=== PATIENT | female | born 1955 | race Caucasian/White ===

== ENCOUNTER → 2016-08-28 | Outpatient (CLI) | payer OTHER ==
[~2016-08-28] MED LIST: ALBINS/ INH; ALBU0.5N2 NEB; ALBUAER2 INH; CHOL100010 PO; CHOL1TAB2 PO; CYAN100020 PO; CYAN500T13 PO; CYM/30 PO; DULO-24 PO; FENT25DI10 TOP; FLUT1INH5 INH; FOLI1TAB7 PO; FURO-85 PO; GABA-113 PO; IBAN150T PO; KETO2CRE14 TOP; LEFL20TA PO; LVQ750 PO; METH2.5T PO; NZRCR TOP; ORNI125; OXGN; OXYC-57 PO; OXYC-643 PO; OXYSR10 PO; PRED-301 PO; PREG1CAP28 PO; ROPI0.25 PO; RXC5 PO; SPRIN INH; TRMCR515 TOP; UMEC1AER INH; VNTHFA/IN INH
[2016-08-28 13:53] LABS: CHOLESTEROL/HDL RATIO 3.6
== END | disposition home or self-care (01) ==
LOC: C.LABMFLN 08:09
PROVIDERS: ATTEND Family Medicine
DX: Z13.220 Encounter for screening for lipoid disorders (principal); M06.9 Rheumatoid arthritis, unspecified; G25.81 Restless legs syndrome; Z87.898 Personal history of other specified conditions; M81.0 Age-related osteoporosis without current pathological fracture

== ENCOUNTER 2016-10-30 10:39 | Inpatient (IN) | payer OTHER ==
[~2016-10-30] VITALS: Ht 154.9 cm; Wt 81.3 kg
[~2016-10-30 10:39] MED LIST changes: -ALBINS/ INH; -CHOL1TAB2 PO; -CYAN500T13 PO; -DULO-24 PO; -FENT25DI10 TOP; -FLUT1INH5 INH; -FURO-85 PO; -IBAN150T PO; -LVQ750 PO; -NZRCR TOP; -OXGN; -OXYC-57 PO; -OXYSR10 PO; -PREG1CAP28 PO; -SPRIN INH; -TRMCR515 TOP; -VNTHFA/IN INH
--- NOTE | 2016-10-30 11:37 | DIAGNOSTIC IMAGING REPORT ---
CHEST ONE VIEW PORTABLE CLINICAL HISTORY: SOB dyspnea COMPARISON STUDY: 11/23/2014 FINDINGS: Moderate cardiomegaly. Diaphragms smooth. Pulmonary vascular congestion. Potential developing parenchymal infiltrate medial right base. IMPRESSION: 1. Pulmonary venous congestion. 2. Potential developing parenchymal infiltrate medial right base. Electronically signed by: Kurt Rodney M.D. 10/30/2016 11:36 AM Dictated Date/Time: 10/30/2016 11:35 AM
[2016-10-30] MEDS ORDERED: METHYLPREDNISOLONE 125 MG VIAL IV STA (12:06)
[2016-10-30] MEDS ORDERED: ALBUT/IPRATROP 3MG/0.5MG NEB 3 ML VIAL INH ONE (12:15)
--- NOTE | 2016-10-30 12:15 | EMERGENCY ROOM VISIT NOTE ---
History Report prepared by Howard: Shay Rodriguez Under the Supervision of: Dr. Que Root M.D. First contact with patient: 12:01 Chief Complaint: SHORTNESS OF BREATH Stated Complaint: SOB Nursing Triage Summary: having sob for the past 3 weeks. denies hx of breathing difficulties. was to [facility]. d dimer was elevated ct scan and chest xray was negative History of Present Illness The patient is a 61 year old female who presents to the Emergency Room with complaints of shortness of breath. Severely worse with exertion over any more than a few feet. Feeling short of breath over the last month. Initially seen [place] where she reports extensive testing including CT PE without any acute findings. She notes she was started on steroids by PCP and is tapering them off. Over last few days acutely worsening. Mildly productive cough. Mild upper sternal chest pain with exertion, though none now. No fevers, chills, syncope, nausea, vomiting, headache, neck pain, abdominal pain, weakness. Notes periodic swelling legs. No history of PE/DVT. No CAD history. Admits long COPD history. Using inhaler without improvement. No previous admission for this. Does not h.o periodic pna, bronchitis. Source of History: patient Onset: Past few days Position: other (global - shortness of breath) Timing: worsening Modifying Factors (Worsening): exertion Associated Symptoms: + chest pain, + cough, No LOC, No chills, No fevers, No headache, No nausea, No neck pain, No vomiting, No weakness Note: Associated symptoms: Leg swelling. Review of Systems See HPI for pertinent positives & negatives. A total of 10 systems reviewed and were otherwise negative. Past Medical & Surgical Medical Problems: (1) COPD (chronic obstructive pulmonary disease) (2) Short of breath on exertion Family History No pertinent family history Social History Smoking Status: Never Smoker Marital Status: Housing Status: lives with family Occupation Status: unemployed Current/Historical Medications Scheduled Abatacept (Orencia), 1 DOSE SUNDAY Cholecalciferol (Vitamin D-3), 1,000 UNITS PO DAILY Cyanocobalamin (Vitamin B12), 2,500 MCG PO QAM Duloxetine Hcl (Cymbalta), 40 MG PO DAILY Folic Acid (Folvite), 1 MG PO QAM Gabapentin (Neurontin), 600 MG PO HS Gabapentin (Neurontin), 300 MG PO AM & DINNER Ibandronate Sodium (Boniva), 150 MG PO MONTHLY Leflunomide (Arava), 20 MG PO QAM Methotrexate (Methotrexate), 10 TAB PO SUNDAY Prednisone (Prednisone), 5 MG PO QAM Ropinirole (Requip), 2 TABS PO HS Umeclidinium-Vilanterol (Anoro Ellipta 62.5-25 Mcg/INH), 1 PUFF INH QAM Scheduled PRN Albuterol Hfa (Ventolin Hfa), 2 PUFFS INH Q4 PRN for SOB/Wheezing Albuterol Sulf (Proventil 0.083% 2.5MG/3ML), 2.5 MG INH Q4 PRN for SOB/Wheezing Ketoconazole (Ketoconazole), 1 APPLN TOP TID PRN for RASH Allergies Coded Allergies: Piroxicam (Verified Allergy, Unknown, SWELLING AND INCREASED REFLUX, ) Simvastatin (Verified Allergy, Unknown, JOINT AND MUSCLE PAIN, 10/30/16) Etodolac (Verified Adverse Reaction, Unknown, 'made pain worse' per pt, ) Physical Exam Vital Signs Date Time Temp Pulse Resp B/P Pulse Ox O2 Delivery O2 Flow Rate FiO2 10/30/16 16:00 110 22 126/70 94 10/30/16 14:23 107 16 117/52 93 Room Air 10/30/16 13:49 105 16 117/66 95 Room Air 10/30/16 13:15 93 Nasal Cannula 2.0 10/30/16 12:40 92 88 Room Air 10/30/16 12:31 101 16 93 Room Air 10/30/16 12:13 77 18 118/69 96 Nasal Cannula 2.0 10/30/16 12:09 84 10/30/16 11:42 97 Nasal Cannula 2.0 10/30/16 10:57 91 Room Air 10/30/16 10:55 37.4 102 18 121/72 91 Room Air Physical Exam GENERAL: Patient is well appearing and in mild distress. HEENT: No acute trauma, normocephalic atraumatic, mucous membranes moist, no nasal congestion, no scleral icterus. NECK: No stridor, no adenopathy, no meningismus, trachea is midline. LUNGS: Crackles right lung joshi, mild diffuse wheezing, mild dyspnea. HEART: Regular rate and rhythm. No murmurs, rubs, gallops appreciated. ABDOMEN: Soft, nontender, bowel sounds positive, no masses appreciated, no peritonitis. BACK: No midline tenderness, no CVA tenderness EXTREMITIES: Normal motion all extremities, no cyanosis, no edema. NEUROLOGIC: Alert and oriented, no acute motor or sensory deficits, no focal weakness, cranial nerves grossly intact. SKIN: No rash, no jaundice, no diaphoresis. Medical Decision & Procedures ER Provider Diagnostic Interpretation: X ray results are stated below per my interpretation and the radiologist's interpretation. CHEST ONE VIEW PORTABLE CLINICAL HISTORY: SOB dyspnea COMPARISON STUDY: 11/23/2014 FINDINGS: Moderate cardiomegaly. Diaphragms smooth. Pulmonary vascular congestion. Potential developing parenchymal infiltrate medial right base. IMPRESSION: 1. Pulmonary venous congestion. 2. Potential developing parenchymal infiltrate medial right base. Electronically signed by: Kurt Rodney M.D. 10/30/2016 11:36 AM Dictated Date/Time: 10/30/2016 11:35 AM Laboratory Results 10/30/16 11:15 Red Blood Count 4.42, Mean Corpuscular Volume 92.5, Mean Corpuscular Hemoglobin 30.8, Mean Corpuscular Hemoglobin Concent 33.3, Mean Platelet Volume 11.0, Neutrophils (%) (Auto) 78.7, Lymphocytes (%) (Auto) 12.0, Monocytes (%) (Auto) 4.4, Eosinophils (%) (Auto) 1.0, Basophils (%) (Auto) 0.3, Neutrophils # (Auto) 8.14, Lymphocytes # (Auto) 1.24, Monocytes # (Auto) 0.45, Eosinophils # (Auto) 0.10, Basophils # (Auto) 0.03 10/30/16 11:15 Test 10/30/16 00:00 10/30/16 11:15 10/30/16 12:35 Influenza Type A Antigen Neg for Influ A (NEG) Influenza Type B Antigen Neg for Influ B (NEG) White Blood Count 10.33 K/uL (4.8-10.8) Red Blood Count 4.42 M/uL (4.2-5.4) Hemoglobin 13.6 g/dL (12.0-16.0) Hematocrit 40.9 % (37-47) Mean Corpuscular Volume 92.5 fL (80-100) Mean Corpuscular Hemoglobin 30.8 pg (25-34) Mean Corpuscular Hemoglobin Concent 33.3 g/dl (32-36) Platelet Count 367 K/uL (130-400) Mean Platelet Volume 11.0 fL (7.4-10.4) Neutrophils (%) (Auto) 78.7 % Lymphocytes (%) (Auto) 12.0 % Monocytes (%) (Auto) 4.4 % Eosinophils (%) (Auto) 1.0 % Basophils (%) (Auto) 0.3 % Neutrophils # (Auto) 8.14 K/uL (1.4-6.5) Lymphocytes # (Auto) 1.24 K/uL (1.2-3.4) Monocytes # (Auto) 0.45 K/uL (0.11-0.59) Eosinophils # (Auto) 0.10 K/uL (0-0.5) Basophils # (Auto) 0.03 K/uL (0-0.2) RDW Standard Deviation 55.9 fL (36.4-46.3) RDW Coefficient of Variation 16.6 % (11.5-14.5) Immature Granulocyte % (Auto) 3.6 % Immature Granulocyte # (Auto) 0.37 K/uL (0.00-0.02) Large Platelets 1+ Anisocytosis PRESENT Prothrombin Time 11.0 SECONDS (9.0-12.0) Prothromb Time International Ratio 1.0 (0.9-1.1) Activated Partial Thromboplast Time 27.3 SECONDS (21.0-31.0) Partial Thromboplastin Ratio 1.1 Anion Gap 8.0 mmol/L (3-11) Est Creatinine Clear Calc Drug Dose 65.4 ml/min Estimated GFR () 84.5 Estimated GFR (Non- 72.9 BUN/Creatinine Ratio 15.2 (10-20) Calcium Level 8.9 mg/dl (8.5-10.1) Magnesium Level 2.3 mg/dl (1.8-2.4) Troponin I < 0.015 ng/ml (0-0.045) Pro-B-Type Natriuretic Peptide 414 pg/ml (0-900) Bedside Lactic Acid Venous 1.78 mmol/L (0.90-1.70) Laboratory results as reviewed by me. Medications Administered Medications (Trade) Dose Ordered Sig/Alf Route Start Time Stop Time Status Last Admin Dose Admin Methylprednisolone Sodium Succinate (Solu-Medrol IV) 125 mg NOW STAT IV 10/30/16 12:06 10/30/16 12:08 DC 10/30/16 12:21 125 MG Albuterol/ Ipratropium (Duoneb) 12 ml ONE ONCE INH 10/30/16 12:15 10/30/16 12:16 DC 10/30/16 12:30 12 ML Levofloxacin 750 mg 750 mg NOW STAT IV 10/30/16 12:55 10/30/16 12:56 DC 10/30/16 13:45 750 MG Sodium Chloride (Nss 500ml) 500 ml @ 999 mls/hr Q31M STAT IV 10/30/16 12:56 10/30/16 13:26 DC 10/30/16 13:46 999 MLS/HR ECG Indication: SOB/dyspnea Rate (beats per minute): 77 Rhythm: normal sinus Findings: no acute ischemic change, no ectopy, other (QTC of 420) ED Course 1200: The patient was evaluated in room B5. A complete history and physical exam was performed. 1206: Ordered Solu-Medrol IV 125 mg IV. 1215: Ordered Duoneb 12 ml INH. 1255: Ordered Levaquin / D5W 750 mg IV. 1256: Ordered NSS 500 ml @ 999 mls/hr IV. 1305: Upon reevaluation, the patient is resting comfortably. Discussed results and treatment plan with the patient. She verbalized understanding and agreement with the treatment plan. The patient will be evaluated for further management. 1313: I discussed the patient with Dr. Butt [place] [facility] [place] he will evaluate the patient for further treatment. 1340: I reevaluated the patient, and she is stable. She is currently being evaluated by medicine. Medical Decision 61 yr old female arrives for evaluation of shortness of breath 1 month post seeing [place] ED for similar symptoms. Notes over last few days symptoms have worsened. Notes some nodules in throat which are being followed. Notes severe [place] and was as upper chest pressure on exertion. CXR and exam consistent with right middle pna. Labs look OK. Unfortunately desaturated thus will need to come in. Already with recent CT PE study thus will not repeat. Feeling much better on NC O2 and resting. IV abx, steroids, and will bring in given hypoxia. Doing well throughout ED stay. Consults Time Called: 1307 Consulting Physician: Dr. Daquan NGUYEN hospitalist Returned Call: 1313 I discussed the patient with Dr. Daquan NGUYEN hospitalist- he will evaluate the patient for further treatment. Impression Primary Impression: PNA (pneumonia) Additional Impression: Hypoxia Scribe Attestation The scribe's documentation has been prepared under my direction and personally reviewed by me in its entirety. I confirm that the note above accurately reflects all work, treatment, procedures, and medical decision making performed by me. Departure Information Dispostion Being Evaluated By Hospitalist Referrals Joe Santos M.D. (PCP) Patient Instructions My [facility] Problem Qualifiers Primary Impression: PNA (pneumonia) Pneumonia type: due to unspecified organism Laterality: right Lung location : middle lobe of lung Qualified Codes: J18.1 - Lobar pneumonia, unspecified organism
[2016-10-30 12:23] LABS: HEMATOCRIT 40.9 % (37-47); MEAN CELL VOLUME 92.5 fL (80-100); MEAN CORPUSCULAR HEMOGLOBIN 30.8 pg (25-34); MEAN CORPUSCULAR HGB CONC 33.3 g/dl (32-36); PLATELET COUNT 367 K/uL (130-400); RED BLOOD COUNT 4.42 M/uL (4.2-5.4); WHITE BLOOD COUNT 10.33 K/uL (4.8-10.8)
[2016-10-30 12:31] VITALS: PULSE 101; O2SAT 93
[2016-10-30 12:33] LABS: BLOOD UREA NITROGEN 13 mg/dl (7-18); BUN/CREATININE RATIO 15.2 (10-20); CALCIUM 8.9 mg/dl (8.5-10.1); CARBON DIOXIDE 25 mmol/L (21-32); CHLORIDE 101 mmol/L (98-107); CREATININE 0.85 mg/dl (0.60-1.20); GLUCOSE 119 mg/dl (70-99); MAGNESIUM 2.3 mg/dl (1.8-2.4); POTASSIUM 4.2 mmol/L (3.5-5.1); SODIUM 134 mmol/L (136-145)
[2016-10-30] MEDS ORDERED: LEVAQUIN 750MG / 150ML D5W IV STA (12:55)
[2016-10-30] MEDS ORDERED: SODIUM CHLORIDE 0.9% 500ML 500 ML IV STA (12:56)
[2016-10-30] MEDS ORDERED: CHOL1TAB2 PO (13:05)
[2016-10-30] MEDS ORDERED: ALBINS/ INH (13:05)
[2016-10-30] MEDS ORDERED: DULO-24 PO (13:05)
[2016-10-30] MEDS ORDERED: NZRCR TOP (13:05)
[2016-10-30] MEDS ORDERED: IBAN150T PO (13:05)
[2016-10-30] MEDS ORDERED: VNTHFA/IN INH (13:05)
[2016-10-30 13:10] LABS: ANISOCYTOSIS PRESENT; BASO % 0.3 %; BASO ABS # 0.03 K/uL (0-0.2); COMPLETE YES; IG% 3.6 %; LARGE PLATELETS 1+; LYMPH ABS # 1.24 K/uL (1.2-3.4); MONO % 4.4 %; NEUT % 78.7 %
[2016-10-30 13:15] VITALS: O2SAT 93; Ht 154.9 cm; Wt 81.3 kg
[2016-10-30] MEDS ORDERED: POLYETHYLENE (MIRALAX) 17 GM PACK PO PRN (14:15)
[2016-10-30] MEDS ORDERED: ZOLPIDEM TARTRATE 5 MG TAB PO PRN (14:15)
[2016-10-30] MEDS ORDERED: ONDANSETRON INJ 2 MG/ML 2 ML VIAL IV PRN (14:15)
[2016-10-30] MEDS ORDERED: LEVALBUTEROL 0.31MG/3 ML VIAL INH PRN (14:15)
[2016-10-30] MEDS ORDERED: ACETAMINOPHEN 325 MG TAB PO PRN (14:15)
[2016-10-30] MEDS: ALBUT/IPRATROP 3MG/0.5MG NEB 3 ML VIAL INH SCH ×2 (15:00→20:42)
[2016-10-30 16:04] LABS: PARTIAL THROMBOPLASTIN RATIO 1.1
--- NOTE | 2016-10-30 16:27 | History and Physical ---
History & Physical Date & Time of Service: Oct 30, 2016 at 16:01 Chief Complaint: SOB Primary Care Physician: Joe Santos M.D. History of Present Illness Source: patient, spouse This is a 61 y/o female with PMHx of COPD and RA presented to the ED complaining of SOB. She states that she is been having SOB for past 1 month. She went to the [facility] days ago and all the workups, including PE workups were normal. Patent was seen by the PCP last Sunday and was started on tapered dose of steroid. Currently she was taking 15mg of prednisone. She states that her SOB mostly on exertion, denies dyspnea at rest. She states even with walking to the bathroom would give her SOB. She doesn't have oxygen at home. Her last PFT was done about 9 yrs ago. She states that she is heathy otherwise. Denies fever, cough, runny nose, chest pain, headache, abdominal pain , nausea, vomiting, diarrhea or any other additional complaints. Past Medical/Surgical History Medical Problems: (1) COPD (chronic obstructive pulmonary disease) Status: Chronic (2) Rheumatoid Arthritis Status: Chronic (3) Neuropathic Pain Status: Chronic Family History Mother of lung CA at the age of 80. Father of heart disease at the age of 76 has kidney transplant Son has HTN Social History Smoking Status: Former Smoker Marital Status: Occupational Status: unemployed Allergies Coded Allergies: Piroxicam (Verified Allergy, Unknown, SWELLING AND INCREASED REFLUX, ) Simvastatin (Verified Allergy, Unknown, JOINT AND MUSCLE PAIN, 10/30/16) Etodolac (Verified Adverse Reaction, Unknown, 'made pain worse' per pt, ) Home Medications Scheduled Abatacept (Orencia), 1 DOSE SUNDAY Cholecalciferol (Vitamin D-3), 1,000 UNITS PO DAILY Cyanocobalamin (Vitamin B12), 2,500 MCG PO QAM Duloxetine Hcl (Cymbalta), 40 MG PO DAILY Folic Acid (Folvite), 1 MG PO QAM Gabapentin (Neurontin), 600 MG PO HS Gabapentin (Neurontin), 300 MG PO AM & DINNER Ibandronate Sodium (Boniva), 150 MG PO MONTHLY Leflunomide (Arava), 20 MG PO QAM Methotrexate (Methotrexate), 10 TAB PO SUNDAY Prednisone (Prednisone), 5 MG PO QAM Ropinirole (Requip), 2 TABS PO HS Umeclidinium-Vilanterol (Anoro Ellipta 62.5-25 Mcg/INH), 1 PUFF INH QAM Scheduled PRN Albuterol Hfa (Ventolin Hfa), 2 PUFFS INH Q4 PRN for SOB/Wheezing Albuterol Sulf (Proventil 0.083% 2.5MG/3ML), 2.5 MG INH Q4 PRN for SOB/Wheezing Ketoconazole (Ketoconazole), 1 APPLN TOP TID PRN for RASH Review of Systems Constitutional: No chills, No fever, No weakness ENT: No nasal symptoms, No sore throat Respiratory: + dyspnea on exertion, + shortness of breath, No cough, No dyspnea at rest, No hemoptysis, No sputum, No wheezing Cardiovascular: No chest pain, No edema Abdomen: No GI bleeding, No constipation, No diarrhea, No nausea, No pain, No vomiting Musculoskeletal: No muscle pain Genitourinary - Female: No dysuria Neurologic: No numbness/tingling, No weakness Endocrine: No fatigue Integumentary: No rash Physical Exam Vital Signs Date Time Temp Pulse Resp B/P Pulse Ox O2 Delivery O2 Flow Rate FiO2 10/30/16 14:23 107 16 117/52 93 Room Air 10/30/16 13:49 105 16 117/66 95 Room Air 10/30/16 13:15 93 Nasal Cannula 2.0 10/30/16 12:40 92 88 Room Air 10/30/16 12:31 101 16 93 Room Air 10/30/16 12:13 77 18 118/69 96 Nasal Cannula 2.0 10/30/16 12:09 84 10/30/16 11:42 97 Nasal Cannula 2.0 10/30/16 10:57 91 Room Air 10/30/16 10:55 37.4 102 18 121/72 91 Room Air General Appearance: WD/WN, no apparent distress Head: normocephalic, atraumatic Eyes: normal inspection, PERRL, EOMI, sclerae normal Neck: supple, trachea midline Respiratory/Chest: chest non-tender, lungs clear, normal breath sounds, no respiratory distress, no accessory muscle use Cardiovascular: regular rate, rhythm, no edema Abdomen/GI: normal bowel sounds, non tender, soft Extremities/Musculoskelatal: no calf tenderness, no pedal edema, non-tender Neurologic/Psych: alert, normal mood/affect, oriented x 3 Skin: normal color, warm/dry, no rash Diagnostics Laboratory Results Results Past 24 Hours Test 10/30/16 11:15 10/30/16 12:35 Range/Units White Blood Count 10.33 4.8-10.8 K/uL Red Blood Count 4.42 4.2-5.4 M/uL Hemoglobin 13.6 12.0-16.0 g/dL Hematocrit 40.9 37-47 % Mean Corpuscular Volume 92.5 80-100 fL Mean Corpuscular Hemoglobin 30.8 25-34 pg Mean Corpuscular Hemoglobin Concent 33.3 32-36 g/dl Platelet Count 367 130-400 K/uL Mean Platelet Volume 11.0 7.4-10.4 fL Neutrophils (%) (Auto) 78.7 % Lymphocytes (%) (Auto) 12.0 % Monocytes (%) (Auto) 4.4 % Eosinophils (%) (Auto) 1.0 % Basophils (%) (Auto) 0.3 % Neutrophils # (Auto) 8.14 1.4-6.5 K/uL Lymphocytes # (Auto) 1.24 1.2-3.4 K/uL Monocytes # (Auto) 0.45 0.11-0.59 K/uL Eosinophils # (Auto) 0.10 0-0.5 K/uL Basophils # (Auto) 0.03 0-0.2 K/uL RDW Standard Deviation 55.9 36.4-46.3 fL RDW Coefficient of Variation 16.6 11.5-14.5 % Immature Granulocyte % (Auto) 3.6 % Immature Granulocyte # (Auto) 0.37 0.00-0.02 K/uL Large Platelets 1+ Anisocytosis PRESENT Sodium Level 134 136-145 mmol/L Potassium Level 4.2 3.5-5.1 mmol/L Chloride Level 101 98-107 mmol/L Carbon Dioxide Level 25 21-32 mmol/L Anion Gap 8.0 3-11 mmol/L Blood Urea Nitrogen 13 7-18 mg/dl Creatinine 0.85 0.60-1.20 mg/dl Est Creatinine Clear Calc Drug Dose 65.4 ml/min Estimated GFR () 84.5 Estimated GFR (Non- 72.9 BUN/Creatinine Ratio 15.2 10-20 Random Glucose 119 70-99 mg/dl Calcium Level 8.9 8.5-10.1 mg/dl Magnesium Level 2.3 1.8-2.4 mg/dl Troponin I < 0.015 0-0.045 ng/ml Pro-B-Type Natriuretic Peptide 414 0-900 pg/ml Bedside Lactic Acid Venous 1.78 0.90-1.70 mmol/L Microbiology Results 10/30/16 Blood Culture, Received Pending 10/30/16 Blood Culture, Received Pending Diagnostic Radiology [~ rep ct add3]] CHEST ONE VIEW PORTABLE CLINICAL HISTORY: SOB dyspnea COMPARISON STUDY: 11/23/2014 FINDINGS: Moderate cardiomegaly. Diaphragms smooth. Pulmonary vascular congestion. Potential developing parenchymal infiltrate medial right base. IMPRESSION: 1. Pulmonary venous congestion. 2. Potential developing parenchymal infiltrate medial right base. Electronically signed by: Kurt Rodney M.D. 10/30/2016 11:36 AM Dictated Date/Time: 10/30/2016 11:35 AM The status of this report is Signed. Draft = Not yet reviewed or approved by Radiologist. Signed = Reviewed and approved by Radiologist. other Normal EKG Impression Assessment and Plan This is a 61 y/o female with PMHx of COPD presented to the ED complaining of SOB [id number]. 1. COPD Exacerbation - Could be secondary to ?? possible pneumonia shown on CXR - Patient states that she mostly have SOB on exertion. - CXR showed pulmonary venous congestion and potential developing parenchymal infiltrate medial right base - S/p IV Solu-Medrol 125mg in ED - Given improvement in symptoms and no wheezing will hold off on steroid for now. Can start PO steroid 40mg or 60mg tomorrow. - C/w home dose of prednisone 5mg - Schedule Duoneb q6h and Xopenex prn - C/w with Levaquin 725mg for 5 days course - Order Echo - pending - BCx is pending - Patient will need to have repeat PFTs, which can be done as outpatient - Continue to monitor 2. Rheumatoid Arthritis - C/w all the home medications (Methotrexate, Leflunomide, and Abatacept) 3. Neuropathic pain - C/w gabapentin 4. Depression/Anxiety - C/w Cymbalta 40mg 5. DVT prophylaxis - Lovenox 6. Code Status - Full code I agree with resident assessment and plan and have seen and examined pt myself Pt admitted for worsening sob x 1 month Hx of COPD Noted tachycardia on exam COPD exab possible secondary to CAP Cont antibx at this time of levaquin Due to congestion, get ECHO as well Cont IV steroids Cont duonebs Level of Care Med/Surg Advanced Directives Existing Living Will: No Existing Power of Surgery Scheduler: No Resuscitation Status FULL RESUSCITATION VTE Prophylaxis VTE Risk Assessment Done? Y/N: Yes Risk Level: Moderate Given or contraindicated: Enoxaparin (Lovenox)SQ Note About 45 minutes
[2016-10-30 19:10] VITALS: O2SAT 96
[2016-10-30 19:32] VITALS: BP 125/67; PULSE 87; TEMP 36.6; O2SAT 93
[2016-10-30 20:42] VITALS: PULSE 87; O2SAT 95
[2016-10-30] MEDS ORDERED: ENOXAPARIN 30 MG/0.3 ML SYR SQ SCH ×2 (21:00)
[2016-10-30] MEDS: ENOXAPARIN 40 MG/0.4 ML SYR SQ SCH (21:00)
[2016-10-30] MEDS: GABAPENTIN 600 MG TAB PO SCH (22:01)
[2016-10-30] MEDS: ROPINIROLE HCL 0.25 MG TAB PO SCH (22:02)
[2016-10-30 23:45] VITALS: BP 142/77; PULSE 80; TEMP 36.7; O2SAT 94
[2016-10-31] VITALS (9 sets, daily range): BP systolic 113–137; BP diastolic 72–82; PULSE 70–90; TEMP 36.6–36.7; O2SAT 94–96
[2016-10-31] MEDS: ALBUT/IPRATROP 3MG/0.5MG NEB 3 ML VIAL INH SCH ×4 (01:58→18:53)
[2016-10-31] MEDS: GABAPENTIN 300 MG CAP PO SCH ×2 (06:23→14:12)
[2016-10-31 06:35] LABS: HEMATOCRIT 38.9 % (37-47); MEAN CORPUSCULAR HEMOGLOBIN 30.9 pg (25-34); MEAN CORPUSCULAR HGB CONC 32.9 g/dl (32-36); MEAN PLATELET VOLUME 10.9 fL (7.4-10.4); PLATELET COUNT 370 K/uL (130-400); RED BLOOD COUNT 4.14 M/uL (4.2-5.4); WHITE BLOOD COUNT 11.13 K/uL (4.8-10.8)
[2016-10-31 07:08] LABS: CALCIUM 9.3 mg/dl (8.5-10.1); CREATININE 0.66 mg/dl (0.60-1.20)
[2016-10-31] MEDS: LEFLUNOMIDE 10 MG TAB PO SCH (09:45)
[2016-10-31] MEDS: DULOXETINE HCL 20 MG CAP PO SCH (09:45)
[2016-10-31] MEDS: CYANOCOBALAMIN 500 MCG TAB (VIT B-12) PO SCH (09:46)
[2016-10-31] MEDS: LEVOFLOXACIN / D5W 750 MG in PREMIXED IN D5W 150 ML IV SCH (14:12)
--- NOTE | 2016-10-31 18:44 | Hospitalist Progress Note ---
Hospitalist Progress Note Date of Service Oct 31, 2016. Subjective Pt evaluation today including: conversation w/ patient Pain: 0 patient is feeling better decreased shortness of breath Objective Vital Signs Date Time Temp Pulse Resp B/P Pulse Ox O2 Delivery O2 Flow Rate FiO2 10/31/16 15:26 36.6 90 20 113/72 94 Room Air 10/31/16 14:19 70 16 94 Room Air 10/31/16 08:00 Room Air 10/31/16 08:00 82 16 94 Room Air 10/31/16 07:52 94 Room Air 10/31/16 07:39 36.7 81 18 137/82 94 Room Air 10/31/16 01:58 74 18 94 Room Air 10/31/16 00:00 94 Room Air 10/30/16 23:45 36.7 80 20 142/77 94 Room Air 10/30/16 20:42 87 18 95 Room Air 10/30/16 19:32 36.6 87 20 125/67 93 10/30/16 19:10 96 Room Air Physical Exam General Appearance: no apparent distress ENT: hearing grossly normal Neck: supple Respiratory/Chest: chest non-tender Cardiovascular: regular rate, rhythm Abdomen: normal bowel sounds Extremities: normal range of motion Laboratory Results Last 24 Hours Test 10/31/16 06:15 White Blood Count 11.13 K/uL Red Blood Count 4.14 M/uL Hemoglobin 12.8 g/dL Hematocrit 38.9 % Mean Corpuscular Volume 94.0 fL Mean Corpuscular Hemoglobin 30.9 pg Mean Corpuscular Hemoglobin Concent 32.9 g/dl RDW Standard Deviation 57.5 fL RDW Coefficient of Variation 16.8 % Platelet Count 370 K/uL Mean Platelet Volume 10.9 fL Sodium Level 141 mmol/L Potassium Level 4.0 mmol/L Chloride Level 109 mmol/L Carbon Dioxide Level 22 mmol/L Anion Gap 10.0 mmol/L Blood Urea Nitrogen 11 mg/dl Creatinine 0.66 mg/dl Est Creatinine Clear Calc Drug Dose 84.3 ml/min Estimated GFR () 109.0 Estimated GFR (Non- 94.0 BUN/Creatinine Ratio 17.0 Random Glucose 147 mg/dl Calcium Level 9.3 mg/dl Assessment and Plan 1. COPD Exacerbation - Improving on current tx continue 2. Rheumatoid Arthritis - C/w all the home medications (Methotrexate, Leflunomide, and Abatacept) 3. Neuropathic pain - C/w gabapentin 4. Depression/Anxiety - C/w Cymbalta 40mg 5. DVT prophylaxis - Lovenox 6. Code Status Advanced care planning Discussed in detail with the patient she wants to be DNR order will be written. The need for a will, living will, and possible POA. Discharge planning: home
[2016-10-31] MEDS: GABAPENTIN 600 MG TAB PO SCH (20:49)
[2016-10-31] MEDS: ROPINIROLE HCL 0.25 MG TAB PO SCH (20:50)
[2016-10-31] MEDS: ENOXAPARIN 40 MG/0.4 ML SYR SQ SCH (20:50)
[2016-11-01] VITALS (10 sets, daily range): BP systolic 129–147; BP diastolic 78–84; PULSE 76–102; TEMP 36.4–36.7; O2SAT 90–96
[2016-11-01] MEDS: ALBUT/IPRATROP 3MG/0.5MG NEB 3 ML VIAL INH SCH ×4 (01:27→20:00)
[2016-11-01] MEDS: GABAPENTIN 300 MG CAP PO SCH ×2 (06:33→13:05)
[2016-11-01 06:58] LABS: HEMATOCRIT 39.5 % (37-47); MEAN CELL VOLUME 92.9 fL (80-100); MEAN CORPUSCULAR HEMOGLOBIN 30.1 pg (25-34); MEAN CORPUSCULAR HGB CONC 32.4 g/dl (32-36); MEAN PLATELET VOLUME 10.3 fL (7.4-10.4); PLATELET COUNT 372 K/uL (130-400); RED BLOOD COUNT 4.25 M/uL (4.2-5.4); WHITE BLOOD COUNT 10.24 K/uL (4.8-10.8)
[2016-11-01 07:33] LABS: BUN/CREATININE RATIO 19.8 (10-20); CALCIUM 8.5 mg/dl (8.5-10.1); CREATININE 0.86 mg/dl (0.60-1.20); POTASSIUM 4.5 mmol/L (3.5-5.1)
[2016-11-01] MEDS: DULOXETINE HCL 20 MG CAP PO SCH (08:28)
[2016-11-01] MEDS: CYANOCOBALAMIN 500 MCG TAB (VIT B-12) PO SCH (08:28)
[2016-11-01] MEDS: LEFLUNOMIDE 10 MG TAB PO SCH (08:29)
[2016-11-01] MEDS ORDERED: NURSING VERBAL MED ORDER ONE (09:30)
[2016-11-01] MEDS ORDERED: LIDODERM (LIDOCAINE) PATCH 5% TD ONE (10:15)
[2016-11-01] MEDS: LEVOFLOXACIN / D5W 750 MG in PREMIXED IN D5W 150 ML IV SCH (13:29)
[2016-11-01] MEDS ORDERED: PERFLUTREN LIPID MICROSPHERE (DEFINITY) IV ONE (16:04)
--- NOTE | 2016-11-01 18:06 | ECHOCARDIOGRAM REPORT ---
*NOTICE TO RECEIVING REPUBLICAN AGENCY This information is strictly Confidential and protected under [place] law. [place] law prohibits you from making any further disclosure of this information unless further disclosure is expressly permitted by the written consent of the person to whom it pertains or is authorized by law. A general authorization for the release of medical or other information is not sufficient for this purpose. Hospital accepts no responsibility if the information is made available to any other person, INCLUDING THE PATIENT. Interpretation Summary * Name: AMILCAR WASHINGTON Study Date: 11/01/2016 03:16 PM BP: 144/79 mmHg * Patient Location: [id number]\S\2 HR: 98 * : 1955 (M/d/yyy) Gender: Female Height: 60 in * Age: 61 yrs Ethnicity: [place] Weight: 179 lb * Ordering Physician: Allison Maza * Performed By: Cady Chen, nhan/ Sushila Lehman RDCS * * Reason For Study: Chest discomfort * BSA: 1.8 m2 * -- Conclusions -- * 1. Normal LV size and wall thickness. * 2. Normal LV systolic function. LVEF 65-70%. No regional wall motion abnormalities. * 3. RV not well visualized but RV function normal by TAPSE. * 4. No significant valvular pathology. * 5. Normal estimated PA and RA pressures. * 6. No prior studies for comparison. Procedure Details * A complete two-dimensional transthoracic echocardiogram was performed (2D, M-mode, Doppler and color flow Doppler). * A contrast injection of Definity was performed to improve assessment of LV function. * Contrast was injected into an intravenous site in the right arm. * One vial of Definity ultrasound contrast was diluted in normal saline to a total volume of 10 ml. A total of '2' ml of solution was administered during imaging. * Lot # [id number] of Definity utilized for procedure. * Expiration date NOV 28. * The attending nurse who injected the contrast agent was Tonie Ly RN. Left Ventricle * The left ventricle is grossly normal size. * There is normal left ventricular wall thickness. * Ejection Fraction = 65-70%. * No regional wall motion abnormalities noted. Right Ventricle * The right ventricle is not well visualized. * The right ventricular systolic function is normal as assessed by tricuspid annular plane systolic excursion (TAPSE) (normal >1.5 cm). Atria * The left atrial size is normal. * Right atrial size is normal. * No ASD detected; PFO is not assessed. Mitral Valve * The mitral valve is grossly normal. * There is no mitral valve stenosis. * Significant mitral regurgitation is absent. Tricuspid Valve * The tricuspid valve is not well visualized, but is grossly normal. * There is no tricuspid stenosis. * There is trace tricuspid regurgitation. Aortic Valve * The aortic valve opens well. * No hemodynamically significant valvular aortic stenosis. * There is no significant aortic regurgitation. Pulmonic Valve * The pulmonic valve is not well visualized. Great Vessels * The aortic root and proximal ascending aorta are normal sized. Pericardium/Pleural * There is no pericardial effusion. Great Vessels * Normal inferior vena cava size and collapsability with sniff indicates a normal right atrial pressure of 3 mmHg * There is no evidence of pulmonary hypertension. The PA systolic pressure is less than 36 mmHg. MMode 2D Measurements and Calculations IVSd 1.1 cm LVIDd 3.4 cm LVIDs 2.4 cm LVPWd 1.2 cm IVS/LVPW 0.90 FS 29.0 % EDV(Teich) 48.1 ml ESV(Teich) 20.8 ml EF(Teich) 56.9 % EDV(cubed) 40.0 ml ESV(cubed) 14.3 ml EF(cubed) 64.2 % LV mass(C)d 116.3 grams LV mass(C)dI 65.3 grams/m\S\2 SV(Teich) 27.4 ml SI(Teich) 15.4 ml/m\S\2 SV(cubed) 25.7 ml SI(cubed) 14.4 ml/m\S\2 ACS 2.0 cm LA dimension 2.9 cm asc Aorta Diam 2.6 cm LVAd ap4 13.1 cm\S\2 LVLd ap4 6.2 cm EDV(MOD-sp4) 22.8 ml EDV(sp4-el) 23.3 ml LVAs ap4 7.4 cm\S\2 LVLs ap4 5.1 cm ESV(MOD-sp4) 8.7 ml ESV(sp4-el) 9.2 ml EF(MOD-sp4) 61.6 % EF(sp4-el) 60.6 % LVAd ap2 21.3 cm\S\2 LVLd ap2 7.2 cm EDV(MOD-sp2) 53.2 ml EDV(sp2-el) 53.8 ml LVAs ap2 11.8 cm\S\2 LVLs ap2 5.7 cm ESV(MOD-sp2) 21.2 ml ESV(sp2-el) 20.5 ml EF(MOD-sp2) 60.2 % EF(sp2-el) 62.0 % LVLd %diff 12.9 % EDV(MOD-bp) 36.9 ml LVLs %diff 11.0 % ESV(MOD-bp) 14.0 ml EF(MOD-bp) 62.0 % SV(MOD-sp4) 14.0 ml SI(MOD-sp4) 7.9 ml/m\S\2 SV(MOD-sp2) 32.0 ml SI(MOD-sp2) 18.0 ml/m\S\2 SV(MOD-bp) 22.9 ml SI(MOD-bp) 12.9 ml/m\S\2 SV(sp4-el) 14.1 ml SI(sp4-el) 7.9 ml/m\S\2 SV(sp2-el) 33.4 ml SI(sp2-el) 18.7 ml/m\S\2 Doppler Measurements and Calculations MV E max venkatesh 70.9 cm/sec MV A max venkatesh 85.9 cm/sec MV E/A 0.83 MV dec time 0.27 sec Ao V2 max 109.1 cm/sec Ao max PG 4.8 mmHg Ao max PG (full) 1.3 mmHg LV V1 max PG 3.5 mmHg LV V1 max 92.9 cm/sec PA V2 max 77.1 cm/sec PA max PG 2.4 mmHg PA acc slope 445.8 cm/sec\S\2 PA acc time 0.13 sec TR max venkatesh 104.9 cm/sec PA pr(Accel) 18.6 mmHg
--- NOTE | 2016-11-01 18:58 | Hospitalist Progress Note ---
Hospitalist Progress Note Date of Service Nov 01, 2016. Subjective Pt evaluation today including: conversation w/ patient, conversation w/ family patient still short of breath with exertion. No chest pain Respiratory: + shortness of breath (with ambulation) Objective Vital Signs Date Time Temp Pulse Resp B/P Pulse Ox O2 Delivery O2 Flow Rate FiO2 11/01/16 15:53 36.4 98 18 144/79 93 11/01/16 14:12 86 16 93 Room Air 11/01/16 08:17 36.5 98 18 145/84 93 Room Air 11/01/16 08:00 Room Air 11/01/16 07:22 102 16 90 Room Air 11/01/16 01:27 76 16 95 Room Air 11/01/16 01:22 36.6 85 18 147/78 94 Room Air 11/01/16 00:00 94 Room Air 10/31/16 18:55 76 16 95 Room Air Physical Exam General Appearance: WD/WN, no apparent distress Eyes: normal inspection, sclerae normal ENT: hearing grossly normal Neck: trachea midline Respiratory/Chest: chest non-tender, lungs clear, normal breath sounds Cardiovascular: regular rate, rhythm, no murmur Abdomen: normal bowel sounds Extremities: normal range of motion Neurologic/Psychiatric: alert, normal mood/affect Skin: normal color Notes: [address] [place] [address] Performing Location: [facility] Patient Name: AMILCAR WASHINGTON Dictating Provider: Vin Carias MD Dictation Date: Report Signed By: Date: 1955 Senior Chemical Engineer: NAE [facility] Family Physician: Joe Santos M.D. SC: [id number] Primary Care Physician: Joe Santos M.D. Adm Date: 10/30/16 Attending Physician: Catrachito Olivarez D.O. Dis Date: Admitting Physician: Catrachito Olivarez D.O. Ordering Physician: *NOTICE TO RECEIVING [employer] AGENCY This information is strictly Confidential and protected under [place] law. [place] law prohibits you from making any further disclosure of this information unless further disclosure is expressly permitted by the written consent of the person to whom it pertains or is authorized by law. A general authorization for the release of medical or other information is not sufficient for this purpose. Hospital accepts no responsibility if the information is made available to any other person, INCLUDING THE PATIENT. Interpretation Summary * Name: AMILCAR WASHINGTON Study Date: 11/01/2016 03:16 PM BP: 144/79 mmHg * Patient Location: [facility]\S\[facility]\\2 HR: 98 * : 1955 (M/d/yyyy) Gender: Female Height: 60 in * Age: 61 yrs Ethnicity: [place] Weight: 179 lb * Ordering Physician: Allison Maza * Performed By: Cady Chen, nhan/ Sushila Lehman RDCS * * Reason For Study: Chest discomfort * BSA: 1.8 m2 * -- Conclusions -- * 1. Normal LV size and wall thickness. * 2. Normal LV systolic function. LVEF 65-70%. No regional wall motion abnormalities. * 3. RV not well visualized but RV function normal by TAPSE. * 4. No significant valvular pathology. * 5. Normal estimated PA and RA pressures. * 6. No prior studies for comparison. Procedure Details * A complete two-dimensional transthoracic echocardiogram was performed (2D, M-mode, Doppler and color flow Doppler). * A contrast injection of Definity was performed to improve assessment of LV function. * Contrast was injected into an intravenous site in the right arm. * One vial of Definity ultrasound contrast was diluted in normal saline to a total volume of 10 ml. A total of '2' ml of solution was administered during imaging. * Lot # [id number] of Definity utilized for procedure. * Expiration date NOV 28. * The attending nurse who injected the contrast agent was Tonie Ly RN. Left Ventricle * The left ventricle is grossly normal size. * There is normal left ventricular wall thickness. * Ejection Fraction = 65-70%. * No regional wall motion abnormalities noted. Right Ventricle * The right ventricle is not well visualized. * The right ventricular systolic function is normal as assessed by tricuspid annular plane systolic excursion (TAPSE) (normal >1.5 cm). Atria * The left atrial size is normal. * Right atrial size is normal. * No ASD detected; PFO is not assessed. Mitral Valve * The mitral valve is grossly normal. * There is no mitral valve stenosis. * Significant mitral regurgitation is absent. Tricuspid Valve * The tricuspid valve is not well visualized, but is grossly normal. * There is no tricuspid stenosis. * There is trace tricuspid regurgitation. Aortic Valve * The aortic valve opens well. * No hemodynamically significant valvular aortic stenosis. * There is no significant aortic regurgitation. Pulmonic Valve * The pulmonic valve is not well visualized. Great Vessels * The aortic root and proximal ascending aorta are normal sized. Pericardium/Pleural * There is no pericardial effusion. Great Vessels * Normal inferior vena cava size and collapsability with sniff indicates a normal right atrial pressure of 3 mmHg * There is no evidence of pulmonary hypertension. The PA systolic pressure is less than 36 mmHg. MMode 2D Measurements and Calculations IVSd 1.1 cm LVIDd 3.4 cm LVIDs 2.4 cm LVPWd 1.2 cm IVS/LVPW 0.90 FS 29.0 % EDV(Teich) 48.1 ml ESV(Teich) 20.8 ml EF(Teich) 56.9 % EDV(cubed) 40.0 ml ESV(cubed) 14.3 ml EF(cubed) 64.2 % LV mass(C)d 116.3 grams LV mass(C)dI 65.3 grams/m\S\2 SV(Teich) 27.4 ml SI(Teich) 15.4 ml/m\S\2 SV(cubed) 25.7 ml SI(cubed) 14.4 ml/m\S\2 ACS 2.0 cm LA dimension 2.9 cm asc Aorta Diam 2.6 cm LVAd ap4 13.1 cm\S\2 LVLd ap4 6.2 cm EDV(MOD-sp4) 22.8 ml EDV(sp4-el) 23.3 ml LVAs ap4 7.4 cm\S\2 LVLs ap4 5.1 cm ESV(MOD-sp4) 8.7 ml ESV(sp4-el) 9.2 ml EF(MOD-sp4) 61.6 % EF(sp4-el) 60.6 % LVAd ap2 21.3 cm\S\2 LVLd ap2 7.2 cm EDV(MOD-sp2) 53.2 ml EDV(sp2-el) 53.8 ml LVAs ap2 11.8 cm\S\2 LVLs ap2 5.7 cm ESV(MOD-sp2) 21.2 ml ESV(sp2-el) 20.5 ml EF(MOD-sp2) 60.2 % EF(sp2-el) 62.0 % LVLd %diff 12.9 % EDV(MOD-bp) 36.9 ml LVLs %diff 11.0 % ESV(MOD-bp) 14.0 ml EF(MOD-bp) 62.0 % SV(MOD-sp4) 14.0 ml SI(MOD-sp4) 7.9 ml/m\S\2 SV(MOD-sp2) 32.0 ml SI(MOD-sp2) 18.0 ml/m\S\2 SV(MOD-bp) 22.9 ml SI(MOD-bp) 12.9 ml/m\S\2 SV(sp4-el) 14.1 ml SI(sp4-el) 7.9 ml/m\S\2 SV(sp2-el) 33.4 ml SI(sp2-el) 18.7 ml/m\S\2 Doppler Measurements and Calculations MV E max venkatesh 70.9 cm/sec MV A max venkatesh 85.9 cm/sec MV E/A 0.83 MV dec time 0.27 sec Ao V2 max 109.1 cm/sec Ao max PG 4.8 mmHg Ao max PG (full) 1.3 mmHg LV V1 max PG 3.5 mmHg LV V1 max 92.9 cm/sec PA V2 max 77.1 cm/sec PA max PG 2.4 mmHg PA acc slope 445.8 cm/sec\S\2 PA acc time 0.13 sec TR max venkatesh 104.9 cm/sec PA pr(Accel) 18.6 mmHg Laboratory Results Last 24 Hours Test 11/01/16 06:40 White Blood Count 10.24 K/uL Red Blood Count 4.25 M/uL Hemoglobin 12.8 g/dL Hematocrit 39.5 % Mean Corpuscular Volume 92.9 fL Mean Corpuscular Hemoglobin 30.1 pg Mean Corpuscular Hemoglobin Concent 32.4 g/dl RDW Standard Deviation 56.9 fL RDW Coefficient of Variation 16.8 % Platelet Count 372 K/uL Mean Platelet Volume 10.3 fL Sodium Level 140 mmol/L Potassium Level 4.5 mmol/L Chloride Level 105 mmol/L Carbon Dioxide Level 29 mmol/L Anion Gap 6.0 mmol/L Blood Urea Nitrogen 17 mg/dl Creatinine 0.86 mg/dl Est Creatinine Clear Calc Drug Dose 64.7 ml/min Estimated GFR () 83.3 Estimated GFR (Non- 71.9 BUN/Creatinine Ratio 19.8 Random Glucose 85 mg/dl Calcium Level 8.5 mg/dl Assessment and Plan (1) PNA (pneumonia) Assessment & Plan: Continue levoquin I am not convinced her symptoms are consistant with CAP. Will ask Dr. Varghese to see in the context of her current w/ u and history of RA. For exertional shortness of breath will ask insurance sales professional cardiology to see. (2) Lumbar stenosis with neurogenic claudication 1. COPD Exacerbation - Improving on current tx continue 2. Rheumatoid Arthritis - C/w all the home medications (Methotrexate, Leflunomide, and Abatacept) 3. Neuropathic pain - C/w gabapentin 4. Depression/Anxiety - C/w Cymbalta 40mg 5. DVT prophylaxis - Lovenox 6. Code Status Advanced care planning Discussed in detail with the patient she wants to be DNR order will be written. The need for a will, living will, and possible POA. Problem Qualifiers (1) PNA (pneumonia): Pneumonia type: due to unspecified organism Laterality: right Lung location : middle lobe of lung Qualified Codes: J18.1 - Lobar pneumonia, unspecified organism
[2016-11-01] MEDS: ENOXAPARIN 40 MG/0.4 ML SYR SQ SCH (21:00)
[2016-11-01] MEDS: GABAPENTIN 600 MG TAB PO SCH (21:04)
[2016-11-01] MEDS: ROPINIROLE HCL 0.25 MG TAB PO SCH (21:05)
[2016-11-02 01:34] VITALS: PULSE 93; O2SAT 93
[2016-11-02] MEDS: ALBUT/IPRATROP 3MG/0.5MG NEB 3 ML VIAL INH SCH ×2 (01:34→07:03)
[2016-11-02 06:10] LABS: MEAN CELL VOLUME 91.3 fL (80-100); MEAN CORPUSCULAR HEMOGLOBIN 30.4 pg (25-34); MEAN CORPUSCULAR HGB CONC 33.3 g/dl (32-36); MEAN PLATELET VOLUME 10.3 fL (7.4-10.4); PLATELET COUNT 344 K/uL (130-400); RED BLOOD COUNT 4.38 M/uL (4.2-5.4); WHITE BLOOD COUNT 10.06 K/uL (4.8-10.8)
[2016-11-02] MEDS: GABAPENTIN 300 MG CAP PO SCH (06:31)
[2016-11-02 06:43] LABS: CREATININE 0.86 mg/dl (0.60-1.20)
[2016-11-02 07:03] VITALS: PULSE 116; O2SAT 93
--- NOTE | 2016-11-02 07:53 | PULMONARY CONSULTATION ---
DATE OF CONSULTATION: 11/02/2016 HISTORY OF PRESENT ILLNESS: The patient is a very pleasant 61-year-old female who was admitted to the hospital on the and Dr. Singh has asked me to evaluate the patient from a pulmonary standpoint. She carries a history of chronic obstructive lung disease and is quite limited because of spinal stenosis and because of COPD. When she goes out shopping she has significant shortness of breath and that has been chronic over the last several years. She states she had pulmonary function studies about 8 years ago, was not sure of the results. In September of this year, she started to develop shortness of breath with exertion, was admitted at [facility] several days prior to this admission. Apparently, CT scan of the chest was done and was negative for pulmonary embolism. We should send for those results. She saw her family physician and was placed on some steroids, continued to have significant shortness of breath and then presented to our hospital. She was seen by Dr. Root in the Emergency Room and at that time she was only able to walk about 30 feet without significant shortness of breath. She denied chest pain, fevers, night sweats, aspiration, reflux, or upper airway symptoms. Has not had any industrial exposures. She did not have any significant edema in the lower extremities. She does have a mild cough she states, it is generally been nonproductive. In the Emergency Room, her oxygen saturation was 91% on room air, 93% on 2 liters; blood pressure 121/72, respiratory rate was 18. She had decreased breath sounds bilaterally with diffuse wheezing. Chest x-ray suggested a right mid lung field infiltrate. She has been placed on Levaquin and presently states she is better than she was at the time of admission. She denies any other significant symptoms. Has not had any industrial exposures. PAST MEDICAL HISTORY: Significant for chronic obstructive lung disease, rheumatoid arthritis without any lung disease related to the RA and neuropathy pain. PAST SURGICAL HISTORY: Noncontributory. FAMILY HISTORY: Father is from coronary artery disease at age 76. Mother from lung cancer at age 80, was a heavy tobacco user. She has a son with hypertension. From an occupational standpoint, she has not had any significant industrial exposures. ALLERGIES: ZOCOR, PIROXICAM, ETODOLAC. Medications are noted. She states she uses just her inhaler with nebulizer at home, just on a p.r.n. basis. Her weight has been stable. She has no pets that caused any problems for her. She denies significant skin changes and states her rheumatoid arthritis has been under good control. She has been on methotrexate. She states she has not had any pulmonary function studies in 8 years. PHYSICAL EXAMINATION: VITAL SIGNS: Her vital signs are stable, blood pressure is 129/80, pulse 90 and regular, respiratory rate 16, oxygen saturation 93% on room air and she is afebrile. Her weight is 81 kilograms. When she was here in April 2016 for lumbar spine surgery her weight was 73 kilograms, so she has gained about 8 kilograms over the last year or so. HEENT: Unremarkable except for a small posterior pharynx with a large tongue. No thrush noted. NECK: There is no neck vein distention or HJR. No adenopathy is noted. Expansion of the thorax is good with deep inspiration. HEART: Regular rate and rhythm. No murmurs are heard. LUNGS: Her lungs are clear with decreased breath sounds bilaterally. No crackles or rales or fremitus noted. ABDOMEN: Soft, nontender. EXTREMITIES: She has no cyanosis, clubbing or edema. LABORATORY DATA: Echocardiogram revealed normal left ventricular function with an LVEF of 65%-70% with no evidence of pulmonary artery hypertension. No valvular disease was noted and no pericardial effusions were noted. The inferior vena cava was normal suggesting normal right atrial pressure at 3 mmHg. Her PA systolic pressure was less than 36 mmHg by echo. White count is 10.06, hemoglobin 13.3, PRP is unremarkable and normal CO2 of 29. Liver function studies have not been done. The lactate acid level was 1.78. BNP was normal at 414. Influenza A and B antigens were negative as is the coagulation profile. Chest x-ray suggested a possible infiltrative process at the right mid lung field. IMPRESSION: 1. Chronic obstructive pulmonary disease with exacerbation. 2. Probable right mid lung field pneumonia. 3. Rheumatoid arthritis. I do not see any evidence that she has had any significant interstitial lung disease or pleural effusions or fixed chest cage related to the rheumatoid arthritis. RECOMMENDATIONS: 1. Continue with Levaquin, I think that could be changed to 500 mg daily, I treat it for 7 days and that can be discontinued. 2. Continue with the DuoNeb, I would give that 4 times a day and then q. 4 hours p.r.n. and I would recommend adding on Symbicort 160/4.5 two puffs b.i.d. with a mouth rinse. I explained the risks to her and she understands. 3. Add on Spiriva 2 puffs every morning. 4. Follow up with Dr. Shea as an outpatient in 2-4 weeks and she will need a full set of PFTs at that time. She should probably be followed every year with PFTs including following diffusion capacity while on methotrexate. 5. Sent for the results of the CT scan done at [facility] several days ago. Thanks for asking me to evaluate Ms. Mckeon. I will be glad to follow along during her hospital stay.
[2016-11-02 07:57] VITALS: BP 118/59; PULSE 108; TEMP 36.8; O2SAT 90
[2016-11-02] MEDS ORDERED: BUDESONIDE/FORMOTEROL FUMARATE 160/4.5 60 PUFFS/INHALER INH SCH (08:00)
[2016-11-02] MEDS ORDERED: UMECLIDINIUM-VILANTEROL (ANORO) INH SCH (08:00)
[2016-11-02] MEDS ORDERED: TIOTROPIUM BROMIDE 5 PUFF/90 MCG INH INH SCH (08:00)
[2016-11-02] MEDS: LEFLUNOMIDE 10 MG TAB PO SCH (08:50)
[2016-11-02] MEDS: CYANOCOBALAMIN 500 MCG TAB (VIT B-12) PO SCH (08:51)
[2016-11-02] MEDS: DULOXETINE HCL 20 MG CAP PO SCH (08:51)
--- NOTE | 2016-11-02 11:29 | CARDIOLOGY CONSULTATION ---
DATE OF CONSULTATION: 11/02/2016 DATE OF CONSULTATION: 11/02/2016. TIME: 10:48 a.m. CONSULTING PHYSICIAN: Dr. Hermosillo. REASON FOR CONSULTATION: Dyspnea with exertion. HISTORY OF PRESENT ILLNESS: Mrs. Mckeon is a pleasant 61-year-old female with a history significant for COPD and rheumatoid arthritis. She was admitted for dyspnea with exertion on 10/30/2016. She carries a diagnosis of COPD. In September her dyspnea with exertion worsened. It has progressively worsened since that time. She also had lower extremity edema from the knees down. She went to the Emergency Department at [facility]. She had a CT scan she believes on 09/30/2016. It was reportedly negative for pulmonary embolism. Results have been requested by Dr. Varghese for review. She was also given 20 mg of Lasix for 10 days. Since that time, her edema has resolved. She is no longer taking diuretics. She denies shortness of breath at rest, orthopnea, syncope, near syncope, palpitations. Her dyspnea with exertion occurs with walking approximately 10-20 feet, such as using the restroom in her hospital room. She was seen by Dr. Varghese earlier today who has diagnosed her with a COPD exacerbation and pneumonia. He has made recommendations in regards to treatment for these issues. She has chest tightness that occurs intermittently and can occur at any time. It is not necessarily related to exertion. It lasts for a few minutes before spontaneously resolving. She describes it as a central chest tightness but can sometimes feel it through her back as well. There is no other radiation. It is stable and chronic, occurring over the past several years. She denies any chest pain in relation to this hospitalization. As an outpatient, she has been seen by Dr. Santos most recently on 10/27/2016. At that time he started some inhalers and also ordered a nuclear perfusion study for ischemic evaluation. This outpatient study has not yet been performed. He also started prednisone; however, she does not feel as though it was improving her symptoms. REVIEW OF SYSTEMS: As above and also denies melena, hematochezia, hematuria, abdominal pain, nausea, vomiting, fevers. She does have a chronic cough. Review of systems is otherwise negative. PAST MEDICAL HISTORY: 1. COPD. 2. Rheumatoid arthritis. 3. Spinal stenosis. 4. Restless leg syndrome. 5. Thyroid nodule. 6. Vitamin D deficiency. 7. Osteoporosis. 8. Idiopathic peripheral neuropathy. 9. Lower extremity edema. 10. Depression. OUTPATIENT MEDICATIONS: Include: 1. Prednisone taper as noted above. 2. Leflunomide 20 mg daily. 3. Methotrexate 10.5 mg 10 tablets weekly. 4. Ropinirole. 5. Lyrica was initiated 6 days ago 75 mg 2 tablets daily. This was started in place of gabapentin. 6. Ventolin. 7. Duloxetine. Please see full list as listed in outpatient record. INPATIENT MEDICATIONS: Include Lovenox 40 mg subQ daily, gabapentin 600 mg at bedtime and otherwise gabapentin 300 mg twice daily, Arava 20 mg daily, Levofloxacin 750 mg IV daily, methotrexate 25 mg each Sunday, prednisone 5 mg daily, Requip 0.5 mg at bedtime, Spiriva inhaler. ALLERGIES: SIMVASTATIN, PIROXICAM, ETODOLAC. SOCIAL HISTORY: Forty pack years; however quit smoking in August of 2015. No alcohol. No drugs. She is and lives with her . She has 4 children, 13 grandchildren. 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 Her is present at the bedside. FAMILY HISTORY: Her father had CAD diagnosed in his 60s and at 76 with myocardial infarction. No known premature CAD. PHYSICAL EXAMINATION: VITAL SIGNS: Temperature 36.8 degrees, heart rate 108 beats per minute, respiration rate 16, blood pressure 118/59 mmHg, oxygen saturation 90% on room air. I's and O's incomplete. Weight 81.3 kg. GENERAL: In no acute distress. She is alert. HEAD, EYES, EARS, NOSE, AND THROAT: Anicteric sclerae. NECK: No appreciable JVD. No bruits. Normal carotid upstrokes bilaterally. CARDIAC EXAMINATION: PMI was nonpalpable. There was no ventricular heave. Regular, normal S1, S2. No audible murmurs, rubs or gallops. LUNGS: Decreased breath sounds throughout, but otherwise clear bilaterally. ABDOMEN: Soft, nontender, nondistended, normoactive bowel sounds, no bruits noted. EXTREMITIES: No cyanosis or pitting edema. 2+ radial pulses bilaterally. 2+ dorsalis pedis pulses bilaterally. No palpable cords. PSYCHIATRIC: Affect appears appropriate. CHEST: Tenderness to palpation reproducing her chest tightness as described above. LABORATORY DATA: White blood cell count is 10.06, hemoglobin 13.3, platelets 344. Sodium 140, potassium 4.5, BUN 17, creatinine 0.86, troponin x1 undetectable, ProBNP 414, which is not significantly elevated. Chest x-ray image personally reviewed. No pulmonary edema visualized. Radiology has interpreted pulmonary venous congestion and potential developing parenchymal infiltrate medial right base. ECG upon presentation personally reviewed on 10/30/2016 at 1210 sinus rhythm, 77 beats per minute. Left posterior fascicular block. Echocardiogram report from 11/01/[address] Carias normal LV systolic function. EF 65-70%. No regional wall motion abnormalities. No significant valvular abnormalities. Normal estimated PA and right atrial pressures. ASSESSMENT AND PLAN: 1. Dyspnea with exertion: Likely secondary to COPD and also concern of pneumonia as per pulmonology. COPD treatment as per Dr. Varghese of pulmonology. She appears euvolemic on exam and also has a normal ProBNP. This is not consistent with hypervolemia/heart failure. She has an outpatient stress test ordered in the form of a myocardial perfusion study. Would recommend that she first recover from her COPD exacerbation before undergoing stress testing. This was discussed with her. No urgent indication for ischemic evaluation during this hospital stay in the midst of COPD exacerbation. 2. Tachycardia: Could be due to albuterol inhalers. We will repeat ECG today to ensure that she is still in sinus rhythm. 3. Chest tightness: Her chest tightness has been intermittently occurring for years and is chronic and stable. It is likely related to her COPD or musculoskeletal as it is reproducible on today's exam. She does have an outpatient stress test pending. She can follow follow through with her myocardial perfusion study when recovered from her pulmonary issues. She did not present here with acute coronary syndrome and has not had any recent symptoms in this regard. 4. Disposition: Continue pulmonary treatment as stated by Dr. Varghese. Please call cardiology for any further questions or concerns. Cardiology will sign off at this time. Please do not hesitate to contact with any questions or concerns. Thank you for allowing me to participate in the care of Ms. Mckeon.
[2016-11-02] MEDS ORDERED: SPRIN INH (11:59)
[2016-11-02] MEDS ORDERED: LVQ750 PO (11:59)
--- NOTE | 2016-11-02 12:02 | Discharge Instructions ---
Discharge Instructions Date of Service Nov 02, 2016. Admission Reason for Admission: Shortness Of Breath On Exertion Discharge Discharge Diagnosis / Problem: Pneumonia Discharge Goals Goal(s): Therapeutic intervention Activity Recommendations Activity Limitations: resume your previous activity . Instructions / Follow-Up Instructions / Follow-Up Primary Care Physician in [address] Varghese in 2 weeks Cardiology after pneumonia is completely resolved for outpatient stress test Current Hospital Diet Patient's current hospital diet: AHA Diet (Heart Healthy) Discharge Diet Recommended Diet: Diabetes Type 2 Diet Pending Studies Studies pending at discharge: no Laboratory Results Lipid Panel Test 08/28/16 10:17 Range/Units Triglycerides Level 234 H 0-150 mg/dl Cholesterol Level 174 0-200 mg/dl HDL Cholesterol 48 mg/dl Cholesterol/HDL Ratio 3.6 LDL Cholesterol, Calculated 79 mg/dl Medical Emergencies . Who to Call and When: Medical Emergencies: If at any time you feel your situation is an emergency, please call 911 immediately. . Non-Emergent Contact Non-Emergency issues call your: Primary Care Provider . Past History Medical & Surgical History: (1) PNA (pneumonia) (2) COPD (chronic obstructive pulmonary disease) . "Provider Documentation" section prepared by Kennedy Hermosillo. VTE Core Measure Inpt VTE Proph given/why not?: Enoxaparin (Lovenox)SQ
[2016-11-02] MEDS ORDERED: LEVOFLOXACIN 750 MG TAB PO SCH (12:30)
[2016-11-02 12:52] VITALS: BP 118/59; PULSE 108; TEMP 36.8; O2SAT 90
[2016-11-04] MEDS ORDERED: METHOTREXATE 2.5 MG TAB PO ONE (09:00)
--- NOTE | 2016-11-13 07:49 | DISCHARGE SUMMARY ---
DISCHARGE DIAGNOSES: 1. Right mid lung pneumonia. 2. Chronic obstructive pulmonary disease. 3. Rheumatoid arthritis. 4. Atypical chest pain. Please see dictated H\T\P for full details. BRIEFLY: The patient is a 61-year-old with a history of COPD and rheumatoid arthritis who presented complaining of shortness of breath that she has been having over the past one month. Workup in [facility] 2 days prior to admission was unremarkable for pulmonary embolism. She had tapering dose of steroids and was brought in with COPD exacerbation and question of pneumonia. She was given IV Solu-Medrol, DuoNeb and Levaquin. Her code status is full and she continued medications for rheumatoid arthritis. A consultation was obtained with cardiology who recommended the patient first recover from her pulmonary issues and then as an outpatient receive stress testing. She had some chest tightness which was atypical for cardiac disease reproducible, most likely musculoskeletal in nature. Dr. Varghese saw her for pulmonology and felt that she had COPD exacerbation, probable right mid lung pneumonia. He recommended continuing Levaquin, changing it to 500 mg a day for seven days, Duonebs and adding Spiriva. He recommended a followup with Dr. Shea as an outpatient in 2 to 4 weeks and a full set of PFTs at that time. The patient did well and was discharged in stable condition on 11/02/2016. Time spent reviewing the chart and discussion with the patient on the day of discharge; 35 minutes.
[2017-02-07] MEDS ORDERED: CYAN500T13 PO (14:09)
[2017-02-07] MEDS ORDERED: TRMCR515 TOP (14:09)
[2017-02-07] MEDS ORDERED: FURO-85 PO (14:10)
[2017-02-07] MEDS ORDERED: PREG1CAP28 PO (14:11)
[2017-02-07] MEDS ORDERED: FENT25DI10 TOP (14:14)
[2017-02-07] MEDS ORDERED: FLUT1INH5 INH (14:14)
[2017-02-07] MEDS ORDERED: OXYC-57 PO (14:15)
[2017-02-07] MEDS ORDERED: OXGN (14:17)
== END 2016-11-02 13:30 | disposition home or self-care (01) | DRG 194 ==
LOC: ENRESERVTM → ENRESERVDT → C.EDB 10:41 → C.MS4W 14:18
PROVIDERS: ADMIT Hospitalist; ATTEND Hospitalist
DX: J18.9 Pneumonia, unspecified organism (principal); J44.1 Chronic obstructive pulmonary disease with (acute) exacerbation; J84.9 Interstitial pulmonary disease, unspecified; M06.9 Rheumatoid arthritis, unspecified; F32.9 Major depressive disorder, single episode, unspecified; F41.9 Anxiety disorder, unspecified; M48.06 Spinal stenosis, lumbar region; R00.0 Tachycardia, unspecified; M81.0 Age-related osteoporosis without current pathological fracture; M79.2 Neuralgia and neuritis, unspecified; R09.02 Hypoxemia; G90.09 Other idiopathic peripheral autonomic neuropathy; Z66 Do not resuscitate; Z87.891 Personal history of nicotine dependence; Z79.83 Long term (current) use of bisphosphonates; Z79.52 Long term (current) use of systemic steroids

== ENCOUNTER → 2016-11-20 | Outpatient (CLI) | payer OTHER ==
[~2016-11-20] MED LIST changes: +ALBINS/ INH; -ALBU0.5N2 NEB; -ALBUAER2 INH; -CHOL100010 PO; +CHOL1TAB2 PO; +CYAN500T13 PO; -CYM/30 PO; +DULO-24 PO; +FENT25DI10 TOP; +FLUT1INH5 INH; +FURO-85 PO; +IBAN150T PO; -KETO2CRE14 TOP; +LVQ750 PO; +NZRCR TOP; +OXGN; +OXYC-57 PO; -OXYC-643 PO; +OXYSR10 PO; +PREG1CAP28 PO; -RXC5 PO; +SPRIN INH; +TRMCR515 TOP; +VNTHFA/IN INH
--- NOTE | 2016-11-20 15:47 | DIAGNOSTIC IMAGING REPORT ---
CHEST 2 VIEWS ROUTINE HISTORY: Pneumonia. Follow-up. COMPARISON: Chest 10/30/2016. FINDINGS: No pneumothorax. The heart is stable in size. There is posterior lumbar fusion hardware. Hazy appearance to the lung bases is likely due to prominent mediastinal fat and overlapping soft tissue. No focal lung consolidations to suggest pneumonia. No evidence for pulmonary edema. IMPRESSION: No focal lung consolidations to suggest pneumonia. Hazy appearance to the lung bases likely represents prominent mediastinal fat. This remains unchanged. Electronically signed by: Oli Tellez M.D. 11/20/2016 3:45 PM Dictated Date/Time: 11/20/2016 3:44 PM
== END | disposition home or self-care (01) ==
LOC: C.RAD1850 14:20
PROVIDERS: ATTEND Physician Assistant Medical
DX: J18.9 Pneumonia, unspecified organism (principal)

== ENCOUNTER → 2016-12-05 | Outpatient (CLI) | payer OTHER ==
[~2016-12-05] MED LIST changes: +REGADENOSON 0.4 MG/5 ML SYR ONE
--- NOTE | 2016-12-05 16:06 | MYOCARDIAL PERFUSION SCAN ---
DATE OF STUDY: 12/05/2016. STUDY REQUESTED BY: Dr. Santos. REASON FOR STUDY: Shortness of breath. STUDY TITLE: ONE-DAY NUCLEAR MEDICINE TECHNETIUM-99M CARDIOLITE MYOCARDIAL PERFUSION SCAN EKG shows sinus rhythm, ventricular rate of 73 with rightward axis and questionable anterior infarct with poor R-wave progression. STRESS EKG: No Lexiscan-induced ST changes, arrhythmia or chest pain. TECHNIQUE: For the stress portion of the study 32.1 mCi of technetium-99m Cardiolite IV was injected at 10:05 a.m. on 12/05/2016. Thirty minutes following the injection, imaging of the heart was performed in multiple projections. For the rest portion of the study 10.8 mCi of technetium-99m Cardiolite was injected IV at 7:50 a.m. One hour following injection, imaging of the heart was performed in the same projections. FINDINGS: Rotating raw images were reviewed in detail. Potential sources of attenuation included imaging with arms at sides due to shoulder pain and large lateral breast shadow most prominent on the stress images. There was minimal gut uptake impacting the inferior imaging border of the heart. There was no significant extracardiac pathologic uptake. The short axis, horizontal long axis, and vertical long axis images were reviewed in detail. There was a small mild partially reversible perfusion defect involving the mid to apical lateral wall. This seen to correspond most notably with patient's breast shadow on raw images. LV size was small with end-diastolic volume of 31. LV function was normal with an EF of 79%. There were no significant regional wall motion abnormalities. 1. Overall negative Lexiscan myocardial perfusion study for ischemia. There was a small partially reversible lateral perfusion defect which is most likely consistent with artifact. 2. Small LV size with normal LV function and no regional wall motion abnormalities. 3. Nondiagnostic Lexiscan EKG due to inability to achieve target heart rate. No Lexiscan induced arrhythmias, ST changes or chest pain. [facility]
== END | disposition home or self-care (01) ==
LOC: C.NUCL 07:04
PROVIDERS: ATTEND Family Medicine
DX: R06.09 Other forms of dyspnea (principal)

== ENCOUNTER → 2016-12-25 | Outpatient (CLI) | payer OTHER ==
[~2016-12-25] MED LIST changes: -REGADENOSON 0.4 MG/5 ML SYR ONE
[2016-12-25 18:38] LABS: BLOOD UREA NITROGEN 16 mg/dl (7-18); BUN/CREATININE RATIO 20.5 (10-20); CALCIUM 9.5 mg/dl (8.5-10.1); CARBON DIOXIDE 30 mmol/L (21-32); CHLORIDE 102 mmol/L (98-107); CREATININE 0.78 mg/dl (0.60-1.20); GLUCOSE 114 mg/dl (70-99); SODIUM 137 mmol/L (136-145)
== END | disposition home or self-care (01) ==
LOC: C.LABMFLN 15:15
PROVIDERS: ATTEND Family Medicine
DX: R60.0 Localized edema (principal); J02.9 Acute pharyngitis, unspecified

== ENCOUNTER → 2017-01-09 | Outpatient (CLI) | payer OTHER ==
--- NOTE | 2017-01-13 14:49 | POLYSOMNOGRAPH REPORT ---
DATE OF STUDY: 01/09/2017. CLINICAL DATA: The patient is a 61-year-old female who has a BMI of 35.15. She is referred by Dr. Joe Santos. In addition to shortness of breath she has snoring, observed apneas and disturbed nocturnal sleep. On the evening of 01/09/2017 a home sleep apnea test was performed using a [employer] type 3 monitor. RECORDING RESULTS: The total recording time was 10 hours. The patient's estimated sleep time was 8.6 hours. RESPIRATORY DATA: The patient had a total of 23 respiratory events including 1 obstructive apnea, 2 central apneas, and 20 hypopneas. The apnea hypopnea index was 2.7 and thus the JASWINDER is 2.7. This does not reflect significant sleep apnea. The longest respiratory event was 27 seconds. OXIMETRY DATA: The mean saturation was 90%. The minimum saturation was 81%. There was a total of 105 minutes with saturations less than 89%. It is notable that most of the desaturations occurred approximately between 5:15 a.m. and 6:15 a.m. It appears that she likely had an episode of REM sleep. This was also when most of her respiratory events occurred. HEART RATE DATA: The minimum heart rate was 57. The mean heart rate was 71. SNORING DATA: Snoring was present throughout the test. IMPRESSIONS: 1. Nocturnal hypoxia. 2. No significant sleep apnea in light of the JASWINDER of 2.7. RECOMMENDATIONS: 1. In light of the decreased oxygen saturations it would be advised that she have an overnight pulse oximetry study performed to confirm whether or not she is a candidate for nocturnal oxygen therapy. 2. Weight loss is advised in light of the elevation of body mass index of 35.15. 3. If possible, the patient should avoid sleeping in the supine positions as are typically more snoring and apnea when supine.
== END | disposition home or self-care (01) ==
LOC: C.NEUR 09:51
PROVIDERS: ATTEND Internal Medicine Pulmonary Disease
DX: G47.33 Obstructive sleep apnea (adult) (pediatric) (principal); G47.34 Idiopathic sleep related nonobstructive alveolar hypoventilation

== ENCOUNTER 2017-02-23 09:19 | Day surgery (SDC) | payer OTHER ==
[2017-02-07 14:19] VITALS: BMI 33.0
--- NOTE | 2017-02-07 14:58 | PAT Medication Instructions ---
Service Date Feb 07, 2017. Current Home Medication List Albuterol Hfa (Ventolin Hfa), 2 PUFFS INH Q4 PRN for SOB/Wheezing Albuterol Sulf (Proventil 0.083% 2.5MG/3ML), 2.5 MG INH Q4 PRN for SOB/Wheezing Cholecalciferol (Vitamin D-3), 1,000 UNITS PO QAM Cyanocobalamin (Vitamin B12 500MCG), 500 MCG PO QAM Duloxetine Hcl (Cymbalta), 40 MG PO QAM Fentanyl (Duragesic), 1 DOSE TOP Q72HRS Fluticasone Furoate (Inhalatio (Arnuity Ellipta), 1 PUFF INH QAM Folic Acid (Folvite), 1 MG PO QAM Furosemide (Lasix), 20 MG PO PRN Home O2 Therapy (Oxygen), 2 LITERS NA HS Ibandronate Sodium (Boniva), 150 MG PO MONTHLY Ketoconazole (Ketoconazole), 1 APPLN TOP TID PRN for RASH Leflunomide (Arava), 20 MG PO QAM Methotrexate (Methotrexate), 10 TAB PO SUNDAY Oxycodone/Acetaminophen 5MG/325MG (Percocet 5MG/325MG), 1-2 TABLETS PO QID PRN for N Prednisone (Prednisone), 5 MG PO QAM Pregabalin (Lyrica), 75 MG PO BID Ropinirole (Requip), 2 TABS PO HS Triamcinolone Acet (Triamcinolone Acetonide), 1 APPLN TOP BID Umeclidinium-Vilanterol (Anoro Ellipta 62.5-25 Mcg/INH), 1 PUFF INH QAM Medication Instructions For Your Scheduled Surgery Fentanyl (Duragesic), 1 DOSE TOP Q72HRS (continue as usual) Ibandronate Sodium (Boniva), 150 MG PO MONTHLY (continue as usual) Leflunomide (Arava), 20 MG PO QAM (hold day prior to surgery per station mechanic instructions) Methotrexate (Methotrexate), 10 TAB PO SUNDAY (hold one week prior to surgery per station mechanic instructions) - Hold the following medications 24 hours prior to surgery: Triamcinolone Acet (Triamcinolone Acetonide), 1 APPLN TOP BID Ketoconazole (Ketoconazole), 1 APPLN TOP TID PRN for RASH - Hold the following medications evening prior to surgery: Ropinirole (Requip), 2 TABS PO HS - Hold the following medications the morning of surgery: Folic Acid (Folvite), 1 MG PO QAM Furosemide (Lasix), 20 MG PO PRN Cholecalciferol (Vitamin D-3), 1,000 UNITS PO QAM Cyanocobalamin (Vitamin B12 500MCG), 500 MCG PO QAM - Take the following medications the morning of surgery with a sip of water: Umeclidinium-Vilanterol (Anoro Ellipta 62.5-25 Mcg/INH), 1 PUFF INH QAM Pregabalin (Lyrica), 75 MG PO BID Oxycodone/Acetaminophen 5MG/325MG (Percocet 5MG/325MG), 1-2 TABLETS PO QID PRN (can take up to four hours prior to surgery if needed) Prednisone (Prednisone), 5 MG PO QAM Fluticasone Furoate (Inhalatio (Arnuity Ellipta), 1 PUFF INH QAM Duloxetine Hcl (Cymbalta), 40 MG PO QAM Albuterol Hfa (Ventolin Hfa), 2 PUFFS INH Q4 PRN for SOB/Wheezing (bring with you to hospital on day of surgery) Albuterol Sulf (Proventil 0.083% 2.5MG/3ML), 2.5 MG INH Q4 PRN for SOB/ Wheezing - Take the following medications as scheduled the night before surgery: Pregabalin (Lyrica), 75 MG PO BID Oxycodone/Acetaminophen 5MG/325MG (Percocet 5MG/325MG), 1-2 TABLETS PO QID PRN for N Albuterol Hfa (Ventolin Hfa), 2 PUFFS INH Q4 PRN for SOB/Wheezing Albuterol Sulf (Proventil 0.083% 2.5MG/3ML), 2.5 MG INH Q4 PRN for SOB/ Wheezing Home O2 Therapy (Oxygen), 2 LITERS NA HS If you have any questions please call us at [phone] or [phone] ( Amanda) or [phone]
--- NOTE | 2017-02-07 15:38 | DIAGNOSTIC IMAGING REPORT ---
CERVICAL SPINE 3 VIEWS HISTORY: Pain lateral neutral, flexion, extension COMPARISON: None. FINDINGS: The cervical spine is visualized from C1 through the superior endplate of T1. Evidence for old moderate compression deformities of C5 and C6. Grade 1 anterolisthesis of C4 on C5 of the patient in flexion. Maximum anterior subluxation is 3 mm. With the patient in extension this diminishes to 2 mm. Considerable degenerative disc change from C4 through T1. Prevertebral soft tissues are unremarkable. Prevertebral soft tissues and the atlantodens interval are intact. IMPRESSION: 1. Combination of old posttraumatic change with superimposed degenerative change primarily of the mid to lower cervical region. 2. No evidence for positional subluxation of the C1-C2 articulation. 3. Grade 1 anterolisthesis of C4 on C5 most prominent with the patient in flexion at 3 mm and measuring 2 mm in neutral and extension Electronically signed by: Kurt Rodney M.D. 02/07/2017 3:37 PM Dictated Date/Time: 02/07/2017 3:34 PM
[2017-02-07 16:05] LABS: BASO % 0.3 %; BASO ABS # 0.02 K/uL (0-0.2); COMPLETE YES; EOS % 2.3 %; HEMATOCRIT 38.9 % (37-47); IG% 0.2 %; LYMPH ABS # 0.69 K/uL (1.2-3.4); MEAN CELL VOLUME 87.4 fL (80-100); MEAN CORPUSCULAR HEMOGLOBIN 28.3 pg (25-34); MEAN CORPUSCULAR HGB CONC 32.4 g/dl (32-36); MEAN PLATELET VOLUME 11.3 fL (7.4-10.4); MONO % 6.1 %; NEUT % 79.1 %; PLATELET COUNT 231 K/uL (130-400); RED BLOOD COUNT 4.45 M/uL (4.2-5.4); WHITE BLOOD COUNT 5.75 K/uL (4.8-10.8)
[2017-02-07 16:25] LABS: PROTHROMBIN TIME (PATIENT) 10.7 SECONDS (9.0-12.0)
[2017-02-07 16:32] LABS: BUN/CREATININE RATIO 17.6 (10-20); CALCIUM 9.1 mg/dl (8.5-10.1); CREATININE 0.74 mg/dl (0.60-1.20); POTASSIUM 3.8 mmol/L (3.5-5.1); URINE APPEARANCE CLEAR (CLEAR); URINE BILIRUBIN NEG (NEG); URINE COLOR YELLOW; URINE NITRITE NEG (NEG); URINE PH 6.5 (4.5-7.5); URINE SPECIFIC GRAVITY 1.011 (1.000-1.030); UROBILINOGEN NEG (NEG)
[2017-02-07 16:46] LABS: MANUAL MICROSCOPIC REQUIRED? NO; REVIEW REQ? NO
--- NOTE | 2017-02-12 13:24 | History and Physical ---
History & Physical Date Feb 12, 2017. Chief Complaint Right shoulder pain History of Present Illness The patient is a 61 year old female with complaints of right shoulder. She states its been progressively getting worse over time. She tried NSAIDs, Cortisone injections and PT with no relief. MRI was obtained that demonstrated a full thickness tear of her rotator cuff. She would like to proceed with a right shoulder arthroscopy. Past Medical/Surgical History Medical Problems: (1) COPD (chronic obstructive pulmonary disease) (2) Short of breath on exertion (3) Osteoarthritis Surgical Hx: (1) Neck surgery (2) Low back surgery twice Additional History Hepatic Disease: No Endocrine Disorder: No Kidney Disease: No Hypertension: No Heart Disease: No Bleeding Tendencies: No Infectious Diseases: No Allergies Coded Allergies: Levofloxacin (Unverified Allergy, Unknown, TENDONITIS, 02/07/17) Piroxicam (Verified Allergy, Unknown, SWELLING AND INCREASED REFLUX, ) Simvastatin (Verified Allergy, Unknown, JOINT AND MUSCLE PAIN, 02/07/17) Etodolac (Verified Adverse Reaction, Unknown, 'made pain worse' per pt, ) Home Medications Scheduled Cholecalciferol (Vitamin D-3), 1,000 UNITS PO QAM Cyanocobalamin (Vitamin B12 500MCG), 500 MCG PO QAM Duloxetine Hcl (Cymbalta), 40 MG PO QAM Fentanyl (Duragesic), 1 DOSE TOP Q72HRS Fluticasone Furoate (Inhalatio (Arnuity Ellipta), 1 PUFF INH QAM Folic Acid (Folvite), 1 MG PO QAM Furosemide (Lasix), 20 MG PO PRN Home O2 Therapy (Oxygen), 2 LITERS NA HS Ibandronate Sodium (Boniva), 150 MG PO MONTHLY Leflunomide (Arava), 20 MG PO QAM Methotrexate (Methotrexate), 10 TAB PO SUNDAY Prednisone (Prednisone), 5 MG PO QAM Pregabalin (Lyrica), 75 MG PO BID Ropinirole (Requip), 2 TABS PO HS Triamcinolone Acet (Triamcinolone Acetonide), 1 APPLN TOP BID Umeclidinium-Vilanterol (Anoro Ellipta 62.5-25 Mcg/INH), 1 PUFF INH QAM Scheduled PRN Albuterol Hfa (Ventolin Hfa), 2 PUFFS INH Q4 PRN for SOB/Wheezing Albuterol Sulf (Proventil 0.083% 2.5MG/3ML), 2.5 MG INH Q4 PRN for SOB/Wheezing Ketoconazole (Ketoconazole), 1 APPLN TOP TID PRN for RASH Oxycodone/Acetaminophen 5MG/325MG (Percocet 5MG/325MG), 1-2 TABLETS PO QID PRN for N Physical Examination Skin: warm/dry, no rash Eyes: normal inspection, EOMI ENT: normal ENT inspection Head: normocephalic, atraumatic Neck: supple, no adenopathy Respiratory/Chest: lungs clear, normal breath sounds Cardiovascular: regular rate, rhythm, no murmur Abdomen / GI: normal bowel sounds, non tender Extremities: normal inspection, + pertinent finding (Decreased ROM of right upper extremity. decreased strength. positive empty can test. ) Neurologic/Psych: no motor/sensory deficits, alert, oriented x 3 Diagnosis Right shoulder rotator cuff tear Plan of Treatment Patient is scheduled for a Right shoulder arthroscopy with rotator cuff repair, Subacromial decompression. She had failed conservative therapies that include NSAIDs, cortisone injections and PT. The pain makes it difficult to perform her ADL's. She would like to proceed with surgery. She will be schedule for a right shoulder arthroscopy with rotator cuff repair and subacromial decompression. Risks and benefits were discussed with the patient that include but not limited to infection, DVT, pain, stiffness, need for revision surgery, failure to relieve all symptoms, re-tear, damage to blood vessels, damage to nerves, and anesthesia risks. She wishes to proceed. all questions were answered to her satisfaction. She will go home with self care after the surgery.
[~2017-02-23] VITALS: Ht 157.5 cm; Wt 82.0 kg
[~2017-02-23 09:19] MED LIST changes: +CEFAZOLIN 2000 MG/60 ML D5W IV SCH; -CYAN100020 PO; -GABA-113 PO; +LACTATED RINGER'S 1000ML 1,000 ML IV SCH; -LVQ750 PO; -ORNI125; -OXYSR10 PO; +ROPIVACAINE 0.5% 5 MG/ML 30 ML VIAL ONE; -SPRIN INH
[2017-02-23 09:45] VITALS: BP 150/81; PULSE 81; TEMP 36.6; O2SAT 95; Ht 157.5 cm; Wt 82.0 kg
[2017-02-23] MEDS ORDERED: DEXAMETHASONE SOD INJ 4 MG/ML VIAL ONE (10:30)
[2017-02-23] MEDS ORDERED: LIDOCAINE HCL 2% 2 ML VIAL (20MG/ML) ONE (10:30)
[2017-02-23] MEDS ORDERED: PROPOFOL IV EMULSION 10 MG/ML 20 ML VIAL IV ONE (10:30)
[2017-02-23] MEDS ORDERED: ONDANSETRON INJ 2 MG/ML 2 ML VIAL ONE (10:30)
[2017-02-23] MEDS ORDERED: MIDAZOLAM HCL 1 MG/ML 2ML VIAL ONE (10:31)
[2017-02-23] MEDS ORDERED: FENTANYL CITRATE INJ 50 MCG/1 ML 2 ML VIAL ONE (10:31)
--- NOTE | 2017-02-23 10:34 | History & Physical Bridge Note ---
H&P Re-Evaluation Bridge Note: I have examined the patient, reviewed the History & Physical and in the interval since the performance of the History & Physical I have noted the following changes of clinical significance: No changes noted
[2017-02-23] MEDS ORDERED: BUPIVACAINE 0.5 % 5 MG/1 ML MPF 30ML VIAL ONE (11:07)
[2017-02-23] MEDS ORDERED: LIDOCAINE/EPINEPHRINE 1% 20 ML VIAL ONE (11:07)
[2017-02-23] MEDS ORDERED: EpINEphrine HCL INJ 1 MG/ML 5ML SYRINGE ONE (11:08)
[2017-02-23] MEDS ORDERED: PHENYLEPHRINE 100MCG/ML 5ML SYR ONE (13:03)
[2017-02-23] MEDS ORDERED: NEOSTIGMINE METHYLSULFATE 5 MG/5 ML SYR ONE (13:03)
[2017-02-23] MEDS ORDERED: GLYCOPYRROLATE INJ 0.2 MG/ML VIAL ONE (13:03)
[2017-02-23] MEDS ORDERED: ROCURONIUM BROMIDE 10 MG/ML 5 ML VIAL ONE (13:03)
[2017-02-23] MEDS ORDERED: EpHEDrine SULFATE 50MG/5ML SYR ONE (13:03)
[2017-02-23] MEDS ORDERED: FENTANYL CITRATE INJ 50 MCG/1 ML 2 ML VIAL IV PRN (13:45)
[2017-02-23] MEDS ORDERED: ONDANSETRON INJ 2 MG/ML 2 ML VIAL IV PRN ×2 (13:45→14:30)
[2017-02-23] MEDS ORDERED: ATROPINE SULFATE 0.1 MG/ML 5ML SYR IV PRN (13:45)
[2017-02-23] MEDS ORDERED: OXYSR10 PO (14:27)
--- NOTE | 2017-02-23 14:29 | Discharge Instructions ---
Discharge Instructions Date of Service Feb 23, 2017. Admission Reason for Admission: Right Shoulder Impingement Syndrome, Rtc Tear Discharge Discharge Diagnosis / Problem: Right shoulder Rotator cuff repair, subscapularis repair, SAD Discharge Goals Goal(s): Decrease discomfort, Improve function Activity Recommendations Activity Limitations: per Instructions/Follow-up section . Instructions / Follow-Up Instructions / Follow-Up [facility] DISCHARGE INSTRUCTIONS: ROTATOR CUFF REPAIR SELF CARE INSTRUCTIONS A. You are permitted to loosen your sling/immobilizer to move your elbow, wrist , and hand to prevent stiffness. You should use your good arm to assist the operated extremity when trying to raise the arm away from the body, hygiene purposes. Do NOT actively try to use/engage your shoulder muscles in operative arm at this time. You should NOT do overhead activity, lifting, or attempt to reach behind your back. B. You are to wait to start PT until 6 weeks after your surgery. C. At 48 hours post-operatively, you may change your dressing. Use band-aids and change daily. You are allowed to shower at this time and get the incision area wet, but DO NOT soak or submerge incision area in water. (No baths, swimming pools, hot tubs) D. Do NOT apply soap or any ointment/lotions directly over incision. E. You may use ice as needed to operative shoulder SPECIAL CARE INSTRUCTIONS: VERY IMPORTANT TO READ AND REVIEW A. There are a few signs you need to watch for after you are home. Call [facility] at [phone] if you experience any of the following: a. Increased severe shoulder pain. Some pain is expected especially when you exercise b. Increased swelling in your shoulder or arm; pain or swelling in either upper extremity. (Note: swelling and stiffness is normal and expected for several weeks post op, depending on type of shoulder surgery you had). c. Any fluid or drainage from the incision; redness of the incision. d. Shortness of breath or chest pain. B. Please call [facility] at [phone] if you have any questions or concerns about your operation or recovery. C. Call your physician if: a. Temperature is greater than 101 degrees (F). b. Pain is not relieved by prescribed pain medications. c. Increase drainage or redness from incision. d. Unanswered questions or concerns. D. Pain Medication: a. You will be prescribed pain medication upon discharge that should last till your first post-operative appointment. b. If you experience nausea and/or skin rash, discontinue this medication and contact our office for an alternative medication. c. Caution- narcotic pain medication can cause constipation. FOLLOW UP VISIT: Please call [facility] at [phone] to schedule a follow up appointment 10-14 days from your surgery date. Current Hospital Diet Patient's current hospital diet: Regular Diet Discharge Diet Recommended Diet: Regular Diet Procedures Procedures Performed: Right shoulder: arthroscopic subacromial decompression and rotator cuff repair Pending Studies Studies pending at discharge: no Medical Emergencies . Who to Call and When: Medical Emergencies: If at any time you feel your situation is an emergency, please call 911 immediately. . Non-Emergent Contact Non-Emergency issues call your: Surgeon Call Non-Emergent contact if: temperature is above 101.5, your pain is worsening, wound has increased drainage, wound has increased redness . "Provider Documentation" section prepared by Ric Ramos. . VTE Core Measure Inpt VTE Proph given/why not?: Treatment not indicated [place] Drug Monitoring Program Search Results: patient reviewed within database, no issues identified
[2017-02-23] MEDS ORDERED: MoRPHine SULFATE 2 MG/ML CARP IV PRN (14:30)
[2017-02-23] MEDS ORDERED: OXYCODONE/ACETAMINOPHEN 5-325 TAB PO PRN (14:30)
--- NOTE | 2017-02-23 14:40 | Anesthesiology Progress Note ---
Anesthesia Post Op Note Date & Time Feb 23, 2017 at 14:40 Vital Signs Pain Intensity: 0 Vital Signs Past 12 Hours Date Time Temp Pulse Resp B/P (MAP) Pulse Ox O2 Delivery O2 Flow Rate FiO2 02/23/17 14:35 84 16 159/78 96 Oxymask 10 02/23/17 14:25 90 16 170/88 96 Oxymask 10 02/23/17 14:18 36.2 91 16 174/89 97 Oxymask 10 02/23/17 09:45 36.6 81 20 150/81 (104) 95 Room Air Notes Mental Status: alert / awake / arousable, participated in evaluation Pt Amnestic to Procedure: Yes Nausea / Vomiting: adequately controlled Pain: adequately controlled Airway Patency, RR, SpO2: stable & adequate BP & HR: stable & adequate Hydration State: stable & adequate Anesthetic Complications: no major complications apparent
[2017-02-23 15:00] VITALS: BP 180/84; PULSE 79; TEMP 36.6; O2SAT 92
[2017-02-23 15:30] VITALS: BP 159/69; PULSE 87; TEMP 36.5; O2SAT 92
--- NOTE | 2017-02-23 15:52 | [facility] Operative Report ---
Operative Report Operative Date Feb 23, 2017. Pre-Operative Diagnosis Right shoulder rotator cuff tear, impingement, labral tear, synovitis Post-Operative Diagnosis Same as preoperative diagnosis Procedure(s) Performed Right shoulder: arthroscopic subacromial decompression and rotator cuff repair, extensive debridement Surgeon Dr. Harvinder Diamond Finishing Lab Technician Surgeon(s) Ric Ramos PA-C Estimated Blood Loss 2 ML Findings Above Specimens No pathology specimens Drains 0 Anesthesia geta, interscalene Complication(s) None Disposition Recovery Room / PACU Indications 61-year-old female with a full-thickness rotator cuff tear. She wishes to proceed with arthroscopic repair. Description of Procedure The MRI demonstrated a full-thickness rotator cuff tear. We discussed various treatment measures. The patient wished to proceed with arthroscopic repair. Risks, benefits and alternatives to surgery including, but not limited to, infection DVT, pain, stiffness, need for revision surgery, failure to relieve all symptoms, damage to blood vessels, damage to nerves, risk of anesthesia were discussed with the patient and they wished to proceed. The patient was identified. Laterality was confirmed and marked. The patient received a preoperative antibiotic as well as an interscalene block. They were transferred to the operating room and placed in the supine position and induced into general endotracheal anesthesia per the anesthesia staff. The patient was then safely transferred to the lateral decubitus position, secured by a beanbag. An axillary roll was placed. All pressure points were well-padded. The limb was placed in 10 pounds of lateral traction and then prepped and draped in the usual standard manner with ChloraPrep. The portal sites were anesthetized with 2% lidocaine with epinephrine. I made a standard posterior viewing portal made through a stab incision and then bluntly entered the glenohumeral joint. Then under spinal needle localization, I establish an anterior superolateral portal. The patient had a full-thickness rotator cuff tear through the supraspinatus extending into the infraspinatus. They had a degenerative tear in the anterior, superior and posterior aspects of the glenoid labrum. This was debrided back to a stable base utilizing a shaver. Synovitic change in the anterior aspect of the joint was debrided utilizing a shaver. The cartilage of the humeral head and glenoid had some minor degenerative change that was debrided. The long head of the biceps had a previous rupture. The residual biceps tendon stump was debrided. There was a full-thickness tear of the subscapularis. I debrided the lesser tuberosity with a shaver to establish a good bleeding response. Then utilizing a FirstPass I placed and ULTRABRAID suture into the upper border of the subscapularis in a luggage tag fashion. I then used an additional ULTRABRAID suture to than shuttle an UltraTape into the subscapularis in a luggage tag fashion. I then loaded all 4 suture limbs into a 5.5 mm Multifix S suture anchor. Using a 70 scope I inserted the suture anchor into the lesser tuberosity, tensioned the sutures to reduce the subscapularis to bone and then fully seated the suture anchor into place. The sutures were then cut flush. This gave good jain of the subscapularis to the lesser tuberosity. There was good stability to the repair. I then removed the instrumentation from the joint and entered the subacromial space and established a lateral portal. There was a full-thickness rotator cuff tear that measured about 2.5 cm in diameter. I debrided the footprint with a shaver to establish a good bleeding response. Through a stab incision I placed a 5.5 mm HEALICOIL suture anchor. I passed the ultra braid sutures in a horizontal mattress with a fast pass scorpion. I then repeated this process for a posterior medial anchor. I tied the ULTRABRAID sutures with sliding Davis knots reinforced for 3 half hitches on alternating posts. I then took one UltraTape and 1 ULTRABRAID suture from each anchor I placed them in a 5.5 mm footprint anchor. I placed one anterolaterally. I then repeated this process another suture anchor posterolaterally, completing my double row construct. I then released the CA ligament with cautery and performed a subacromial decompression, first removing the anterior inferior spur from laterally and then completing with a cutting block technique. All instrumentation was then removed from the shoulder. Portal sites were closed with nylon. A sterile dressing was applied and a sling placed. All needle and sponge counts were correct at the end of the procedure. The patient was transferred to the PACU in stable condition without apparent complication. She had fairly large tear with poor tissue quality and poor bone strength. We will hold physical therapy for 6 weeks. I attest to the content of the Intraoperative Record and any orders documented therein. Any exceptions are noted below.
== END 2017-02-23 16:00 | disposition home or self-care (01) ==
LOC: C.ACU 09:19
PROVIDERS: ATTEND Orthopaedic Surgery
DX: M75.121 Complete rotator cuff tear or rupture of right shoulder, not specified as traumatic (principal); M25.811 Other specified joint disorders, right shoulder; M65.811 Other synovitis and tenosynovitis, right shoulder; S46.811A Strain of other muscles, fascia and tendons at shoulder and upper arm level, right arm, initial encounter; X58.XXXA Exposure to other specified factors, initial encounter; J44.9 Chronic obstructive pulmonary disease, unspecified; Z79.899 Other long term (current) drug therapy

== ENCOUNTER → 2017-04-19 | Outpatient (CLI) | payer OTHER ==
[~2017-04-19] MED LIST changes: -CEFAZOLIN 2000 MG/60 ML D5W IV SCH; -LACTATED RINGER'S 1000ML 1,000 ML IV SCH; +OXYSR10 PO; -ROPIVACAINE 0.5% 5 MG/ML 30 ML VIAL ONE
[2017-04-19 13:26] LABS: BLOOD UREA NITROGEN 16 mg/dl (7-18); BUN/CREATININE RATIO 21.9 (10-20); CARBON DIOXIDE 26 mmol/L (21-32); CHLORIDE 109 mmol/L (98-107); CHOLESTEROL 179 mg/dl (0-200); CREATININE 0.73 mg/dl (0.60-1.20); GLUCOSE 110 mg/dl (70-99); POTASSIUM 3.8 mmol/L (3.5-5.1); SODIUM 140 mmol/L (136-145)
[2017-04-19 13:30] LABS: CHOLESTEROL/HDL RATIO 4.3; HDL CHOLESTEROL 42 mg/dl; LDL CHOLESTEROL CALCULATED 99 mg/dl; TOTAL IRON BINDING CAPACITY 308 mcg/dl (250-450); TRIGLYCERIDES 192 mg/dl (0-150); VERY LOW DENSITY LIPOPROT CALC 38 mg/dl
[2017-04-19 13:38] LABS: BASO % 0.6 %; BASO ABS # 0.04 K/uL (0-0.2); COMPLETE YES; EOS % 3.2 %; HEMATOCRIT 42.9 % (37-47); IG% 0.7 %; LYMPH % 15.3 %; LYMPH ABS # 1.09 K/uL (1.2-3.4); MEAN CELL VOLUME 91.7 fL (80-100); MEAN CORPUSCULAR HEMOGLOBIN 30.1 pg (25-34); MEAN CORPUSCULAR HGB CONC 32.9 g/dl (32-36); MEAN PLATELET VOLUME 11.7 fL (7.4-10.4); MONO % 22.3 %; NEUT % 57.9 %; PLATELET COUNT 246 K/uL (130-400); RED BLOOD COUNT 4.68 M/uL (4.2-5.4); WHITE BLOOD COUNT 7.12 K/uL (4.8-10.8)
== END | disposition home or self-care (01) ==
LOC: C.LABMFLN 10:46
PROVIDERS: ATTEND Internal Medicine
DX: M05.79 Rheumatoid arthritis with rheumatoid factor of multiple sites without organ or systems involvement (principal); Z79.899 Other long term (current) drug therapy; M06.9 Rheumatoid arthritis, unspecified; M75.01 Adhesive capsulitis of right shoulder; M81.0 Age-related osteoporosis without current pathological fracture; D64.9 Anemia, unspecified; E55.9 Vitamin D deficiency, unspecified

== ENCOUNTER → 2017-08-16 | Outpatient (CLI) | payer OTHER ==
[~2017-08-16] MED LIST changes: -FOLI1TAB7 PO; +FOLI1TAB8 PO
== END | disposition home or self-care (01) ==
LOC: C.PAPS 09:32
PROVIDERS: ATTEND Family Medicine
DX: Z12.4 Encounter for screening for malignant neoplasm of cervix (principal); Z00.00 Encounter for general adult medical examination without abnormal findings

== ENCOUNTER → 2017-10-22 | Outpatient (CLI) | payer OTHER ==
[2017-10-22 12:16] LABS: BASO % 0.5 %; BASO ABS # 0.04 K/uL (0-0.2); EOS % 4.2 %; EOS ABS # 0.31 K/uL (0-0.5); HEMATOCRIT 43.7 % (37-47); HEMOGLOBIN 14.2 g/dL (12.0-16.0); IG# 0.16 K/uL (0.00-0.02); LYMPH % 18.8 %; MEAN CORPUSCULAR HEMOGLOBIN 31.8 pg (25-34); MEAN CORPUSCULAR HGB CONC 32.5 g/dl (32-36); MONO % 19.4 %; MONO ABS # 1.44 K/uL (0.11-0.59); NEUT % 54.9 %; NEUT ABS # 4.08 K/uL (1.4-6.5); NUCLEATED RED BLOOD CELL ABS 0.02 K/uL (0-0); PLATELET COUNT 259 K/uL (130-400); RED CELL DISTRIBUTION WIDTH CV 16.8 % (11.5-14.5); RED CELL DISTRIBUTION WIDTH SD 58.8 fL (36.4-46.3); WHITE BLOOD COUNT 7.43 K/uL (4.8-10.8)
[2017-10-22 13:13] LABS: ALBUMIN 3.3 gm/dl (3.4-5.0); ALT/SGPT 35 U/L (12-78); AST/SGOT 23 U/L (15-37); BLOOD UREA NITROGEN 12 mg/dl (7-18); CALCIUM 9.1 mg/dl (8.5-10.1); CARBON DIOXIDE 28 mmol/L (21-32); GLUCOSE 98 mg/dl (70-99); POTASSIUM 4.2 mmol/L (3.5-5.1); SODIUM 139 mmol/L (136-145)
[2017-10-22 13:15] LABS: ALBUMIN 3.2 gm/dl (3.4-5.0); TOTAL PROTEIN 6.5 gm/dl (6.4-8.2)
[2017-10-22 13:16] LABS: ALKALINE PHOSPHATASE 110 U/L (45-117); TOTAL PROTEIN 6.6 gm/dl (6.4-8.2)
== END | disposition home or self-care (01) ==
LOC: C.LABMFLN 10:08
PROVIDERS: ATTEND Internal Medicine
DX: Z51.81 Encounter for therapeutic drug level monitoring (principal); Z79.899 Other long term (current) drug therapy; M05.79 Rheumatoid arthritis with rheumatoid factor of multiple sites without organ or systems involvement; E55.9 Vitamin D deficiency, unspecified

== ENCOUNTER 2019-05-22 06:24 | Inpatient (IN) ==
--- NOTE | 2019-04-28 16:43 | PAT Medication Instructions ---
Medication Instructions Date of Service April 28, 2019 Home Medications Medication Instructions Recorded albuterol sulfate HFA 90 2 puffs INH Q6H PRN #18 gm MDD 8 01/24/19 mcg/actuation aerosol inhaler puffs albuterol sulfate 2.5 mg/3 mL 2.5 mg INH Q4H PRN #90 ml 03/23/19 (0.083 %) solution for nebulization denosumab 60 mg/mL subcutaneous 60 mg SQ Q6MO #1 ml 03/23/19 syringe methotrexate sodium 2.5 mg tablet 10 mg PO WK #30 tab 03/23/19 fluticasone fur. 100 mcg-umeclid 1 puffs INH DAILY #60 ea 03/28/19 62.5 mcg-vilant 25 mcg inhalat.powder ropinirole 0.5 mg tablet 0.5 mg PO TID #90 tab 03/28/19 cholecalciferol (vitamin D3) 5,000 unit capsule 5,000 units PO DAILY cyanocobalamin (vitamin B-12) 1,000 mcg capsule 1,000 mcg PO DAILY folic acid 1 mg tablet 1 mg PO DAILY albuterol sulfate HFA 90 mcg/actuation aerosol inhaler 2 puffs INH Q6H PRN albuterol sulfate 2.5 mg/3 mL (0.083 %) solution for nebulization 2.5 mg INH Q4H PRN denosumab 60 mg/mL subcutaneous syringe 60 mg SQ Q6MO methotrexate sodium 2.5 mg tablet 10 mg PO WK fluticasone fur. 100 mcg-umeclid 62.5 mcg-vilant 25 mcg inhalat.powder 1 puffs INH DAILY ropinirole 0.5 mg tablet 0.5 mg PO TID duloxetine 60 mg PO QAM econazole 1 appln TOP UD PRN leflunomide 20 mg PO QAM oxycodone-acetaminophen See Rx Instructions .ROUTE .COMPLEX PRN prednisone 5 mg PO QAM Continue as directed denosumab 60 mg/mL subcutaneous syringe 60 mg SQ Q6MO ASK your prescriber and surgeon methotrexate sodium 2.5 mg tablet 10 mg PO WK leflunomide 20 mg PO QAM STOP taking 24 hours before surgery ropinirole 0.5 mg tablet 0.5 mg PO TID econazole 1 appln TOP UD PRN DO NOT take the morning of surgery cholecalciferol (vitamin D3) 5,000 unit capsule 5,000 units PO DAILY cyanocobalamin (vitamin B-12) 1,000 mcg capsule 1,000 mcg PO DAILY folic acid 1 mg tablet 1 mg PO DAILY Take morning of surgery With a small sip of water, OTHERWISE NOTHING TO EAT OR DRINK AFTER MIDNIGHT: albuterol sulfate HFA 90 mcg/actuation aerosol inhaler 2 puffs INH Q6H PRN (use if needed; please bring with you to hospital day of surgery if possible) albuterol sulfate 2.5 mg/3 mL (0.083 %) solution for nebulization 2.5 mg INH Q4H PRN (if needed) fluticasone fur. 100 mcg-umeclid 62.5 mcg-vilant 25 mcg inhalat.powder 1 puffs INH DAILY duloxetine 60 mg PO QAM oxycodone-acetaminophen See Rx Instructions .ROUTE .COMPLEX PRN (okay to take up to 4 hours prior to surgery if needed) prednisone 5 mg PO QAM Take evening before surgery albuterol sulfate HFA 90 mcg/actuation aerosol inhaler 2 puffs INH Q6H PRN (if needed) albuterol sulfate 2.5 mg/3 mL (0.083 %) solution for nebulization 2.5 mg INH Q4H PRN (if needed) oxycodone-acetaminophen See Rx Instructions .ROUTE .COMPLEX PRN Other Notes If you have any questions please call us at [phone] or [phone] or [phone] or [phone]
--- NOTE | 2019-04-29 10:56 | Anesthesiology Consultation ---
Date of Service April 29, 2019 Assessment & Plan (1) Encounter for pre-operative examination: Chart Review Chart Review: Pending: Refer to Additional Notes / Consult section (pending labs, CXR, c-spine xray) and Patient seen in Pre Admission Testing Teaching & Discussion Pre-Anesthesia Teaching/Discussion Notes: Instructed NPO after midnight before surgery,except medications with 15 cc of water. Medication instructions provided according to the PAT guidelines. History Surgery Operation Date: 05/22/19 11:55 Proposed Procedures p Left Total Knee Arthroplasty - Corey Faye MD Height/Weight Height: 5 ft 1 in Weight: 76.6 kg Allergies Allergy/AdvReac Type Severity Reaction Status Date / Time levofloxacin Allergy Unknown TENDONITIS Unverified 04/24/19 13:18 piroxicam Allergy Unknown SWELLING Verified 04/24/19 13:18 AND INCREASED REFLUX atorvastatin [From Lipitor] AdvReac Unknown JOINT,MUSCLE Verified 04/24/19 13:18 PAIN, TENDONITIS etodolac AdvReac Unknown 'made pain Verified 04/24/19 13:18 worse' per pt LODINE Allergy Unknown MADE PAIN Uncoded 04/24/19 13:18 WORSE Medications Home Medications Medication Instructions Recorded Confirmed Last Taken cholecalciferol (vitamin D3) 5,000 5,000 units PO DAILY 01/23/19 04/24/19 Unknown unit capsule cyanocobalamin (vitamin B-12) 1,000 mcg PO DAILY 01/23/19 04/24/19 Unknown 1,000 mcg capsule folic acid 1 mg tablet 1 mg PO DAILY 01/23/19 04/24/19 Unknown albuterol sulfate HFA 90 2 puffs INH Q6H PRN #18 gm MDD 8 01/24/19 04/24/19 Unknown mcg/actuation aerosol inhaler puffs albuterol sulfate 2.5 mg/3 mL 2.5 mg INH Q4H PRN #90 ml 03/23/19 04/24/19 Unknown (0.083 %) solution for nebulization denosumab 60 mg/mL subcutaneous 60 mg SQ Q6MO #1 ml 03/23/19 04/24/19 Unknown syringe methotrexate sodium 2.5 mg tablet 10 mg PO WK #30 tab 03/23/19 04/24/19 Unknown fluticasone fur. 100 mcg-umeclid 1 puffs INH DAILY #60 ea 03/28/19 04/24/19 Unknown 62.5 mcg-vilant 25 mcg inhalat.powder ropinirole 0.5 mg tablet 0.5 mg PO TID #90 tab 03/28/19 04/24/19 Unknown duloxetine 60 mg PO QAM 04/24/19 04/24/19 Unknown econazole 1 appln TOP UD PRN 04/24/19 04/24/19 Unknown leflunomide 20 mg PO QAM 04/24/19 04/24/19 Unknown oxycodone-acetaminophen See Rx Instructions .ROUTE 04/24/19 04/24/19 Unknown .COMPLEX PRN prednisone 5 mg PO QAM 04/24/19 04/24/19 Unknown Past Medical History Medical History COPD (chronic obstructive pulmonary disease) stable Depression Osteoarthritis Restless leg syndrome Rheumatoid arthritis on leflunomide, MTX, prednisone 5mg daily (chronic) Swelling of both lower extremities feet, ankles s/p ECHO 09/2018 Yeast infection recurrent (right ankle, back of hips, left elbow/shoulder)- improvement with topical econazole-- surgeon made aware Exercise / Class Metabolic Activity III < 4 Walking/Shop/Light housework Past Family History Family History Mother Family history of diabetes mellitus (DM) Father Family history of diabetes mellitus (DM) Grandmother (Maternal) Family history of diabetes mellitus (DM) Grandmother (Paternal) Family history of diabetes mellitus (DM) Past Surgical History Surgical History H/O neck surgery NO HARDWARE History of arthroscopy of left knee History of colonoscopy History of lumbar fusion X2 History of shoulder surgery RIGHT History of tubal ligation Past Anesthesia History No Hx of Anesthesia Complications Daughter: slow to wake; no known hx reintubation. History of PONV No Hx of PONV and No Hx of Motion Sickness Social History Smoking Status: Current every day smoker tobacco type: cigarettes Smoking cigarettes per day: 1 PPD x 30+ years Do You Dip or Chew Tobacco: No Hx Alcohol Use: Yes alcohol intake frequency: holidays/special occasions only Hx Substance Use: No substance use type: does not use Review of Systems Chronic cough. Patient denies chest pain, shortness of breath, wheezing, palpitations. Physical Exam Vital Signs VITALS BP 127/77 P 81 TEMP 97.6 SP02 94%RA RESP 20 PHYSICAL Full neck and c-spine range of motion. Full TMJ range of motion. TMD 3 finger breaths Mallampati Score 2 Dentition: several missing/chipped teeth, poor dentition Lungs: clear throughout to auscultation Cardiac: regular rate and rhythm, no murmurs noted Spine: normal, no skin changes to lumbar region Carotid arteries: negative bruit Extremities: no edema Testing Electrocardiogram Date: 08/28/18 SR at 79bpm. Possibel LAE. Possible RVCD. LAFB. Subsequent ECHO done 09/2018* Echocardiogram Date: 10/08/18 EF >70%. No RWMA. Mild cLVH. Interatrial septum suggests lipomatous hypertrophy. No significant valvular disease.
[2019-04-29 11:47] LABS: Basophils # (auto) 0.03 K/uL (0-0.2); Basophils % (auto) 0.3 %; Eosinophils # (auto) 0.13 K/uL (0-0.5); Eosinophils % (auto) 1.5 %; Hematocrit (blood only) 43.6 % (37-47); Hemoglobin 14.7 g/dL (12.0-16.0); Immature Granulocytes # (auto) 0.04 K/uL (0.00-0.02); Immature Granulocytes % (auto) 0.5 %; Lymphocytes # (auto) 0.52 K/uL (1.2-3.4); Lymphocytes % (auto) 5.9 %; Mean Corpuscular Hemoglobin 32.3 pg (25-34); Mean Corpuscular Hgb Conc 33.7 g/dL (32-36); Mean Corpuscular Volume 95.8 fL (80-100); Mean Platelet Volume 11.5 fL (7.4-10.4); Monocytes # (auto) 0.57 K/uL (0.11-0.59); Monocytes % (auto) 6.5 %; Neutrophils # (auto) 7.47 K/uL (1.4-6.5); Neutrophils % (auto) 85.3 %; Platelet Count 218 K/uL (130-400); RDW Coefficient of Variation 17.5 % (11.5-14.5); RDW Standard Deviation 59.8 fL (36.4-46.3); Red Blood Count 4.55 M/uL (4.2-5.4); White Blood Count 8.76 K/uL (4.8-10.8)
[2019-04-29 11:53] LABS: Appearance Urine Cloudy (Clear); Color Urine Dark Yellow; Protein Urine Negative (Negative); Specific Gravity Urine 1.023 (1.000-1.030)
[2019-04-29 11:55] LABS: Albumin Level 3.5 gm/dl (3.4-5.0); Calcium 8.9 mg/dl (8.5-10.1); Creatinine Clr Calc Pharmacy 71.9 ml/min; Est GFR (African American) 100.2; Est GFR (Non-African American) 86.4; Potassium 4.1 mmol/L (3.5-5.1)
--- NOTE | 2019-04-29 11:56 | XRay Report ---
XR chest Pre-admission PA/Lat CLINICAL HISTORY: Preoperative evaluation. COMPARISON STUDY: Chest radiograph November 20, 2016. FINDINGS: Lung volumes are normal. Lungs are clear. There is no pneumothorax or pleural effusion. Mil d cardiomegaly is noted. Mediastinal contours are normal. There is no evidence for pulmonary edema. L umbar spine fusion hardware is partially imaged. IMPRESSION: 1. No acute cardiopulmonary findings. 2. Mild cardiomegaly. Electronically signed by: Kashif De Jesus M.D. 04/29/2019 11:55 AM
--- NOTE | 2019-04-29 11:58 | XRay Report ---
FLEXION AND EXTENSION CERVICAL SPINE RADIOGRAPHS CLINICAL HISTORY: RHEUMATOID ARTHRITIS COMPARISON STUDY: Cervical spine radiographs February 07, 2017. FINDINGS: Marked disc space narrowing at C5-C6 and C6-C7 is noted with chronic anterior wedging of th e C6 vertebral body. There is no evidence for C1-C2 instability. Reversal of the normal cervical lord osis is unchanged. There is moderate multilevel facet arthrosis. Anterolisthesis of C4 on C5 is uncha nged since exam of February 07, 2017. IMPRESSION: 1. No evidence for cervical spine instability. 2. Severe degenerative disc disease at C5-C6 and C6-C7. Moderate multilevel facet arthrosis. 3. Reversal of the normal cervical lordosis with anterolisthesis of C4 on C5 which is unchanged since radiographs of February 07, 2017. Electronically signed by: Kashif De Jesus M.D. 04/29/2019 11:57 AM
[2019-04-29 12:04] LABS: Partial Thromboplastin Ratio 0.9; Partial Thromboplastin Time 24.8 Seconds (21.0-31.0); Prothrombin Time 10.2 Seconds (9.0-12.0)
[2019-04-29 12:49] LABS: Estimated Average Glucose 120 mg/dl; Hemoglobin A1C 5.8 % (4.5-5.6)
[2019-04-29 13:45] LABS: Bilirubin Urine Negative (Negative); Blood Urine 2+ (Negative); Glucose Urine UA Negative (Negative); Ketones Urine Trace (Negative); Leukocyte Esterase Urine Trace (Negative); Nitrite Urine Positive (Negative); Urobilinogen Urine Negative (Negative)
--- NOTE | 2019-05-21 21:46 | History and Physical Report ---
DATE OF ADMISSION: 05/22/2019 CHIEF COMPLAINT: Chronic left knee pain. HISTORY OF PRESENT ILLNESS: This is a 63-year-old female patient of Dr. Faye'levon complaining of chronic left knee pain, longstanding, now progressively getting worse. The patient has failed conservative treatment including intra-articular injections, viscosupplementation, anti-inflammatories, home exercise program and the use of a sleeve. The patient has increased pain with weightbearing activities and her pain does interfere with her activities of daily living. The patient has been diagnosed with end-stage osteoarthritis per clinical and radiographic exams. The patient wished to proceed with a left total knee arthroplasty. PAST MEDICAL HISTORY: Anxiety, rheumatoid arthritis, osteoarthritis, spine problems, neck problems, sciatica, obesity, dental issues. SOCIAL HISTORY: One pack per day smoker, nondrinker. PAST SURGICAL HISTORY: Back surgery x2, shoulder surgery on the right, throat tumor removal, tubal ligation and left knee arthroscopy. FAMILY HISTORY: Noncontributory. REVIEW OF SYSTEMS: Chronic left knee pain and instability. Otherwise, denies any shortness of breath, chest pain, nausea, vomiting or any other joint complaints. MEDICATIONS: 1. Prednisone 5 mg daily. 2. Vitamin B12 1000 as needed. 2. Cymbalta 30 mg twice daily. 3. Folic acid 40 mcg daily. 4. Arnuity Ellipta 100 mcg actuation 1 puff daily. 5. Methotrexate sodium 2.5 mg, take 10 tablets weekly. 6. Xolegel 2% topical to apply to affected area daily as needed. 7. Arava 20 mg daily. ALLERGIES: INCLUDE LIPITOR, LODINE, LEVAQUIN, PROTONIX AND SIMVASTATIN. PHYSICAL EXAMINATION: GENERAL: Well-developed, well-nourished 63-year-old female in no acute distress. She is alert and oriented x3 and pleasant. HEENT: Normocephalic, atraumatic. Extraocular motions are intact. Pupils are equal and reactive to light. HEART: Regular rate and rhythm, no murmurs. LUNGS: Decreased sounds in the right upper lobe with mild expiratory wheezes. ABDOMEN: Soft and nontender. Bowel sounds present. EXTREMITIES: Left knee reveals a varus deformity with medial joint line tenderness. She has range of motion of 0-130. She has crepitation and pain with range of motion. She has 5/5 strength and she is neurologically and neurovascularly intact in her left lower extremity. DIAGNOSES: Left knee end-stage osteoarthritis, anxiety, rheumatoid arthritis, osteoarthritis, spine problems, neck problems, sciatica, obesity, dental issues. PLAN: The patient was advised of her diagnosis. Indications, risks, benefits, postop course have all been reviewed. The patient wished to proceed with a left total knee arthroplasty. Necessary consent forms, preoperative testing and clearances will be obtained.
[~2019-05-22 06:24] MED LIST changes: +ACETAMINOPHEN 500 MG TAB PO SCH; -ALBINS/ INH; +CEFAZOLIN 1000MG 1,000 MG/7.5 ML SYR IV SCH; -CHOL1TAB2 PO; -CYAN500T13 PO; +CeleBREX 200 MG CAP PO SCH; -DULO-24 PO; +FAMOTIDINE 20 MG TAB PO SCH; -FENT25DI10 TOP; -FLUT1INH5 INH; -FOLI1TAB8 PO; -FURO-85 PO; +GABAPENTIN 300 MG CAP PO SCH; -IBAN150T PO; -LEFL20TA PO; +LR 500ML BOLUS, THEN 15ML/HR IV SCH; -METH2.5T PO; +METOCLOPRAMIDE HCL 10 MG TABLET PO SCH; -NZRCR TOP; -OXGN; -OXYC-57 PO; -OXYSR10 PO; -PRED-301 PO; -PREG1CAP28 PO; -ROPI0.25 PO; +ROPIVACAINE 0.5% HCL/PF 150 MG, BUPIVACAINE 0.5% MPF 30 ML, EPINEPHrine 30MG/30ML (OR U... INSTIL SCH; +TRANEXAMIC ACID 1,000 MG **IV Pre-op IV SCH; -TRMCR515 TOP; -UMEC1AER INH; -VNTHFA/IN INH; +dexAMETHasone 4 MG TAB PO SCH
[2019-05-22] MEDS ORDERED: TRANEXAMIC ACID 1,000 MG **IV Intra-op IV SCH (06:30)
[2019-05-22] MEDS ORDERED: BUPIVACAINE 0.5 % 5 MG/1 ML PF 10ML VIAL ONE (06:31)
[2019-05-22] MEDS ORDERED: ROPIVACAINE 0.5% 5 MG/ML 30 ML VIAL ONE (06:32)
--- NOTE | 2019-05-22 07:11 | History & Physical Bridge Note ---
Date of Service May 22, 2019 History & Physical Bridge Note I have examined the patient, reviewed the History & Physical and in the interval since the performance of the History & Physical I have noted the following changes of clinical significance: no changes noted
[2019-05-22] MEDS ORDERED: MIDAZOLAM HCL 1 MG/ML 2ML VIAL ONE (07:32)
[2019-05-22] MEDS ORDERED: fentaNYL citrate 100 MCG/2 ML VIAL ONE (07:33)
[2019-05-22] MEDS ORDERED: ROPIVACAINE 0.5% HCL/PF 150 MG, BUPIVACAINE 0.5% MPF 30 ML, EPINEPHrine 30MG/30ML (OR U... INFIL SCH (08:15)
[2019-05-22] MEDS ORDERED: ORTHO JOINT ANESTHETIC ONE (08:22)
[2019-05-22] MEDS ORDERED: BACITRACIN INJ 50,000 UNIT VIAL ONE (08:22)
[2019-05-22] MEDS ORDERED: ATROPINE SULFATE 0.1 MG/ML 10ML SYR IV PRN (08:49)
[2019-05-22] MEDS ORDERED: ePHEDrine sulfate 50 MG/ML AMP IV PRN (08:49)
[2019-05-22] MEDS ORDERED: PROPOFOL IV EMULSION 10 MG/ML 20 ML VIAL IV ONE ×3 (09:17)
[2019-05-22] MEDS ORDERED: LIDOCAINE HCL 2% 2 ML VIAL/AMP(20MG/ML) INFIL ONE (09:17)
[2019-05-22] MEDS ORDERED: DEXAMETHASONE SOD INJ 4 MG/ML VIAL ONE (09:18)
[2019-05-22] MEDS ORDERED: ONDANSETRON INJ 2 MG/ML 2 ML VIAL ONE ×2 (09:18)
--- NOTE | 2019-05-22 10:35 | Post Operative Brief Note ---
Immediate Post Op Note v1 Date of Surgery May 22, 2019 Pre & Post Diagnosis Operation Date: 05/22/19 08:40 Pre-Op Diagnosis: Left Knee Osteoarthritis Post-Op Diagnosis: Left Knee Osteoarthritis I personally identified the patient: Yes Procedure Operation Date: 05/22/19 08:40 Actual Procedures p Left Total Knee Arthroplasty(Left) - Corey Faye MD Surgeon Corey Faye MD Sander Machine Ariel ROSS Estimated Blood Loss 5 Findings Consistent with Post-Op Diagnosis Specimens Bone cuts Drains Hemovac Drain (dual trocar) Anesthesia Type MAC Spinal Regional Complications none Disposition Accompanied Patient To Recovery: No Disposition: Recovery Room Overlapping Procedure I was present for: the critical portions of procedure. Back up surgeon: was not required during procedure.
[2019-05-22] MEDS ORDERED: ePHEDrine sulfate 50 MG/ML SYR ONE (10:49)
--- NOTE | 2019-05-22 11:46 | XRay Report ---
XR knee LT 2V routine CLINICAL HISTORY: 63 years-old Female presenting with Surgical Post Op. TECHNIQUE: Frontal and lateral views of the left knee were obtained. COMPARISON: None. FINDINGS: Postsurgical changes of total left knee arthroplasty with patellar resurfacing. Expected intra-articu lar and soft tissue emphysema. Overlying skin meenu. A surgical drain is in place. No periprostheti c lucency or fracture. No malalignment. IMPRESSION: Expected postsurgical appearance status post total left knee arthroplasty with patellar resurfacing. Electronically signed by: Harvinder John M.D. 05/22/2019 11:45 AM
[2019-05-22] MEDS ORDERED: ALBUTEROL HFA 8 GM INHALER INH PRN (12:23)
[2019-05-22] MEDS ORDERED: ONDANSETRON INJ 2 MG/ML 2 ML VIAL IV PRN (12:23)
[2019-05-22] MEDS ORDERED: bisacodyL 10 MG SUPP PR PRN (12:23)
[2019-05-22] MEDS ORDERED: ALBUTEROL 0.083% NEBU SOLN 3 ML VIAL INH PRN (12:23)
[2019-05-22] MEDS ORDERED: HYDROmorphone INJ 0.5 MG/0.5 ML SYR IV PRN (12:23)
[2019-05-22] MEDS ORDERED: NALOXONE HCL 0.4 MG/1 ML VIAL/CARP IV PRN (12:23)
[2019-05-22] MEDS ORDERED: MAGNESIUM HYDROXIDE SUSP 30 ML UDC PO PRN (12:23)
[2019-05-22] MEDS ORDERED: SODIUM CHLORIDE 0.9% 1000ML 1,000 ML IV SCH (12:45)
--- NOTE | 2019-05-22 13:20 | Anesthesiology Progress Note ---
Date of Service May 22, 2019 Anesthesia Post Procedure Vital Signs Vital Signs: Temp Pulse Pulse Resp BP Pulse Ox 05/22/19 12:40 36.8 C 93 H 18 130/72 93 05/22/19 12:10 37.1 C 92 H 18 123/71 96 05/22/19 11:55 36.9 C 87 15 134/68 94 05/22/19 11:45 36.9 C 89 20 143/72 H 95 05/22/19 11:35 36.9 C 89 17 132/74 95 05/22/19 11:25 36.0 C L 85 15 129/71 97 05/22/19 11:15 36.0 C L 88 16 132/63 98 05/22/19 11:06 36.0 C L 99 H 16 114/59 L 96 05/22/19 07:08 36.7 C 87 20 162/94 H 95 Pain Intensity Left Knee: Pain Intensity: 5 Transfer of Care Handoff Completed per policy Notes Mental Status: alert / awake / arousable and participated in evaluation Patient Amnestic to Procedure: Yes Nausea / Vomiting: adequately controlled Pain: adequately controlled Airway Patency, RR, SpO2: stable & adequate BP & HR: stable & adequate Hydration State: stable & adequate Neuraxial Anesthesia: was administered and sensory block is resolving Anesthetic Complications: no major complications apparent
[2019-05-22] MEDS: ROPINIROLE HCL 0.25 MG TABLET PO SCH ×2 (14:09→20:22)
[2019-05-22] MEDS: ACETAMINOPHEN 500 MG TAB PO SCH (16:12)
[2019-05-22] MEDS: CEFAZOLIN 1000MG 1,000 MG/7.5 ML SYR IV SCH (16:12)
--- NOTE | 2019-05-22 17:19 | Hospitalist Consultation ---
Date of Consultation May 22, 2019 Assessment & Plan (1) Osteoarthritis of left knee: - S/p left total knee today, doing well. - Pain control per primary team. - DVT ppx: ASA 81 mg BID. - PT/OT for discharge planning. - Monitor CBC qAM to evaluate for acute blood loss. (2) Rheumatoid arthritis: - Continue Prednisone 5 mg daily; holding Methotrexate (takes med on the weekend) and Leflunomide. - Holding home folic acid supplementation. (3) COPD (chronic obstructive pulmonary disease): - No evidence of acute exacerbation. - Continue home Trelegy-Elipta with albuterol prn. (4) Depression: - Continue home Cymbalta as prescribed. (5) RLS (restless legs syndrome): - Continue Requip 0.5 mg TID. (6) Yeast infection: - Has had a chronic issue with topical yeast infections -- continue topical Econazole prn. (7) Tobacco abuse: - Smokes 1 PPD; encourage tobacco cessation. - Nicotine patch ordered. (8) DVT prophylaxis: - SCDs; ASA BID. Dispo: Will continue to follow, please call with questions. Supervising Physician Co-Signing Physician Notes During my face to face encounter, I interviewed patient and performed a physical examination. I answered all of the patients questions and concerns. I discussed plan with patient and APC. I reviewed above note and agree with it. will resume home medicine for his COPD. Patient currently appears to be stable. History of Present Illness Reason for Consultation: Medical Management Attending Physician: Corey Faye MD History of Present Illness Mrs. Mckeon is a 63 year old female with past medical history of COPD, depression, RLS, rheumatoid arthritis, topical yeast infection who presented for planned left knee procedure. Pt. is doing well post op -- denies significant pain in left knee, chest pain, SOB, urinary retention, nausea/vomiting. Allergies Allergy/AdvReac Type Severity Reaction Status Date / Time levofloxacin Allergy Unknown TENDONITIS Unverified 05/22/19 06:58 piroxicam Allergy Unknown SWELLING Verified 05/22/19 06:58 AND INCREASED REFLUX atorvastatin [From Lipitor] AdvReac Unknown JOINT,MUSCLE Verified 05/22/19 06:58 PAIN, TENDONITIS etodolac AdvReac Unknown 'made pain Verified 05/22/19 06:58 worse' per pt Home Medications Home Medications Medication Instructions Recorded Confirmed Type cholecalciferol (vitamin D3) 5,000 5,000 units PO DAILY 01/23/19 05/02/19 History unit capsule folic acid 1 mg tablet 1 mg PO DAILY 01/23/19 05/22/19 History albuterol sulfate HFA 90 2 puffs INH Q6H PRN #18 gm MDD 8 01/24/19 05/22/19 Rx mcg/actuation aerosol inhaler puffs albuterol sulfate 2.5 mg/3 mL 2.5 mg INH Q4H PRN #90 ml 03/23/19 05/22/19 Rx (0.083 %) solution for nebulization denosumab 60 mg/mL subcutaneous 60 mg SQ Q6MO #1 ml 03/23/19 05/22/19 Rx syringe fluticasone fur. 100 mcg-umeclid 1 puffs INH DAILY #60 ea 03/28/19 05/22/19 Rx 62.5 mcg-vilant 25 mcg inhalat.powder ropinirole 0.5 mg tablet 0.5 mg PO TID #90 tab 03/28/19 05/22/19 Rx duloxetine 60 mg PO QAM 04/24/19 05/22/19 History econazole 1 appln TOP UD PRN 04/24/19 05/22/19 History leflunomide 20 mg PO QAM 04/24/19 05/22/19 History prednisone 5 mg PO QAM 04/24/19 05/22/19 History cyanocobalamin (vit B-12) 250 mcg 250 mcg PO DAILY 05/02/19 05/02/19 History tablet acetaminophen [Tylenol Extra 1,000 mg PO Q8 14 Days #84 tab 05/24/19 Rx Strength] aspirin [Ecotrin Low Strength] 81 mg PO BID 30 Days #60 tab 05/24/19 Rx docusate sodium 100 mg PO BID 10 Days #20 cap 05/24/19 Rx oxycodone 5 - 10 mg PO Q6HWA PRN #30 tab 05/24/19 Rx Patient History Medical History COPD (chronic obstructive pulmonary disease) stable Depression Osteoarthritis Restless leg syndrome Rheumatoid arthritis on leflunomide, MTX, prednisone 5mg daily (chronic) Swelling of both lower extremities feet, ankles s/p ECHO 09/2018 Yeast infection recurrent (right ankle, back of hips, left elbow/shoulder)- improvement with topical econazole-- surgeon made aware Surgical History H/O neck surgery NO HARDWARE History of arthroscopy of left knee History of colonoscopy History of lumbar fusion X2 History of shoulder surgery RIGHT History of tubal ligation S/P total knee arthroplasty 05/22/19 Dr. 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 Beliefs That Will Affect Care: None Current Living Situation: Spouse Other Information That Helps Us Care for You: No Feels Safe at Home: Yes Smoking Status: Current every day smoker Tobacco Type: cigarettes ; Cigarettes Per Day: 1 PPD x 30+ years ; Do You Dip or Chew Tobacco: No ; Hx Alcohol Use: Yes Hx Substance Use: No Review of Systems Review of Systems: All systems reviewed & are unremarkable except as noted in HPI & below Constitutional: no fever, no chills, no fatigue, no weakness and no anorexia Respiratory: no cough, no dyspnea, no dyspnea on exertion and no wheezing Cardiovascular: no chest pain, no palpitations and no edema Gastrointestinal: no abdominal pain, no nausea, no vomiting, no constipation and no diarrhea/loose stools Genitourinary: no difficulty urinating Musculoskeletal: no back pain, no joint pain and no swelling Integumentary: no non-healing lesions Physical Exam Physical Exam: General: Resting comfortably HEENT: NC/AT; PERRLA with EOMI; [place] conjunctiva, MMM. No erythema of posterior pharynx Neck: Supple and nontender Cardiac: RRR Lungs: CTA bilaterally Abdomen: Bowel normoactive X 4; Nontender to palpation Extremities: Warm. No edema present Neuro: No focal weakness Skin: No rash Results & Data Vital Signs (Past 12 Hours) Vital Signs Temp Pulse Pulse Resp BP Pulse Ox 05/22/19 15:13 37.1 C 88 16 145/82 H 95 05/22/19 14:10 36.8 C 84 18 131/67 96 05/22/19 13:10 36.9 C 94 H 18 137/73 94 05/22/19 12:40 36.8 C 93 H 18 130/72 93 05/22/19 12:10 37.1 C 92 H 18 123/71 96 05/22/19 11:55 36.9 C 87 15 134/68 94 05/22/19 11:45 36.9 C 89 20 143/72 H 95 05/22/19 11:35 36.9 C 89 17 132/74 95 05/22/19 11:25 36.0 C L 85 15 129/71 97 05/22/19 11:15 36.0 C L 88 16 132/63 98 05/22/19 11:06 36.0 C L 99 H 16 114/59 L 96 05/22/19 07:08 36.7 C 87 20 162/94 H 95 PG Care Time/CCT Total # of Minutes Spent Total Time Spent with Patient: Total time spent is greater than 50% in coordination of care (as documented) at patient's floor/unit and/or counseling patient:
--- NOTE | 2019-05-22 18:02 | Operative Report ---
Post Operative Report Pre & Post Diagnosis Operation Date: 05/22/19 08:40 Pre-Op Diagnosis: Left Knee Osteoarthritis Post-Op Diagnosis: Left Knee Osteoarthritis I personally identified the patient: Yes Procedure Operation Date: 05/22/19 08:40 Actual Procedures p Left Total Knee Arthroplasty(Left) - Corey Faye MD Surgeon Corey Faye MD Supervisor Payroll Ariel ROSS Estimated Blood Loss 5 Findings Consistent with Post-Op Diagnosis Specimens Bone cuts Drains Bone cuts Anesthesia Type MAC Spinal Regional Complications none Disposition Accompanied Patient To Recovery: No Disposition: Recovery Room Indications 63-year-old female with chronic left knee pain with both osteoarthritis and rheumatoid arthritis of the knee chronic swelling pain now [id number] medial compartment with varus knee. Description of Procedure Patient taken to the operating room the size under spinal MAC regional anesth esia. Patient was placed supine on the operating table. A pneumatic tourniquet was placed about the left upper thigh. The left lower extremity was prepped and draped in sterile fashion. Knee exam demonstrated 15 degree flexion contracture flexion to 110 degrees with knee effusion. The leg was elevated exsanguinated with an Esmarch bandage and pneumatic tourniquet was raised to 300 millimeters of mercury. Skin incised sharply in longitudinal fashion. Subcutaneous flaps elevated. Incision was made through the medial retinaculum extending up in the mid third of the quadriceps tendon and down to the medial tibial tubercle. Intra-articular findings demonstrated tricompartmental osteoarthritis mainly the medial compartment and patellofemoral joint with large patellofemoral osteophytes [id number] medial compartment with some bone loss. The [employer]poser[employer] triathlon total knee arthroplasty system was used. To expose the knee the infrapatellar fat pad was resected. The meniscal remnants and cruciate ligaments were resected. The anterior fat pad over the femur in the area of the anterior flange of the femoral component was resected. Lateral synovial bands release. The femur was exposed. An intramedullary drill hole was made into the canal. A guide manuel was placed. Distal femoral cutting guide was adjusted to resect a 5 degree valgus cut with 10 millimeters distal femur resected. The knee was extended and a subperiosteal peel lateral release was performed around the patella. Patella width was measured and width was reproduced using a freehand cut technique and a 33 x 9 symmetrical patella component. The 3 drill holes were made and the excess lateral facet was beveled off to prevent any impingement. Attention was taken back to the femur which was exposed with retractors and the femoral sizing guide was pinned in position. The drill holes were placed in 3 of external rotation to match epicondylar axis. Femur sized for a 3 component. The 4-in-1 cutting block was placed and then the anterior posterior and chamfer cuts are made. The tibia was then subluxed. The external tibial cutting guide was just to make a perpendicular cut to the long axis of the tibia below the most deficient bone loss side. A lamina instructional facilitator was used and the flexion extension gaps were balanced. All posterior osteophytes removed. All meniscal remnants were resected. The tibia exposed and the trial tibial component size 2 was externally rotated in line with the tibial tubercle and pinned in position. The punch for stem was used. The notch cutting device was centered appropriately and the femoral notch cut was made. The femoral trial was inserted. Trial tibial inserts were placed and size 11 mm posterior stabilized gave balanced ligaments through flexion and extension. Patella tracking was assessed. The patella tracked centrally. The trial components were then removed and the orthomix anesthetic cocktail was injected per protocol. The knee was then copiously irrigated with pulsatile lavage antibiotic solution. Final components were then cemented with Simplex cement. Final components were [place] triathlon posterior stabilized size 3 left femoral component, 2 primary tibial baseplate, 11 mm posterior stabilized X3 polyethylene tibial bearing insert, X3 polyethylene symmetrical patella 33 x 9 mm. While the cement cured the Betadine soak was used per protocol. After cement cured further pulsatile lavage irrigation performed and 2 Hemovac drains were brought out laterally. The quadriceps tendon and medial retinaculum were closed with figure of 8 #1 Vicryl sutures. The knee was taken through full range of motion and the repair was secure. The subcutaneous tissues were closed with 2-0 Vicryl sutures. Skin was closed with meenu. Sterile dressings were applied. Patient procedure well. Ariel ROSS was my physician kennel assistant who assisted in patient positioning prepping and draping,leg positioning ,soft tissue retraction and instrument management and participated in the closing and will participate in postoperative care of the patient. The patient tolerated the procedure well. I attest to the content of the Intraoperative Record and any orders documented therein. Any exceptions are noted below.
[2019-05-22] MEDS: NICOTINE 14 MG/24 HR PATCH TD SCH (18:34)
[2019-05-22] MEDS: OXYCODONE HCL IR 5 MG TAB (IMMEDIATE RELEASE) PO PRN (18:48)
[2019-05-22] MEDS: SENNA 8.6 MG TAB PO SCH (20:22)
[2019-05-22] MEDS: ASPIRIN 81 MG ECTAB PO SCH (20:22)
[2019-05-22] MEDS: DOCUSATE SODIUM 100 MG CAP PO SCH (20:23)
[2019-05-23] MEDS: OXYCODONE HCL IR 5 MG TAB (IMMEDIATE RELEASE) PO PRN ×5 (00:02→21:11)
[2019-05-23] MEDS: CEFAZOLIN 1000MG 1,000 MG/7.5 ML SYR IV SCH (01:23)
[2019-05-23] MEDS: ACETAMINOPHEN 500 MG TAB PO SCH ×3 (05:36→21:11)
[2019-05-23 06:00] LABS: Hematocrit (blood only) 33.1 % (37-47); Hemoglobin 10.9 g/dL (12.0-16.0); Mean Corpuscular Hemoglobin 31.8 pg (25-34); Mean Corpuscular Hgb Conc 32.9 g/dL (32-36); Mean Corpuscular Volume 96.5 fL (80-100); Mean Platelet Volume 11.4 fL (7.4-10.4); Nucleated RBC # (auto) 0.02 K/uL (0-0); Nucleated RBC % (auto) 0.1 %; Platelet Count 221 K/uL (130-400); RDW Coefficient of Variation 18.2 % (11.5-14.5); RDW Standard Deviation 63.7 fL (36.4-46.3); Red Blood Count 3.43 M/uL (4.2-5.4); White Blood Count 16.27 K/uL (4.8-10.8)
[2019-05-23 06:32] LABS: BUN Creatinine Ratio 21.2 (10-20); Calcium 8.2 mg/dl (8.5-10.1); Creatinine Clr Calc Pharmacy 81.2 ml/min; Est GFR (Non-African American) 93.2; Potassium 4.3 mmol/L (3.5-5.1)
--- NOTE | 2019-05-23 08:05 | Orthopedic Progress Note ---
Date of Service May 23, 2019 Assessment & Plan (1) Osteoarthritis of left knee: POD #1, Left TKA PT/ Ot DVT proph- ASA D/C planning- Home w OPPT As per medicine. Subjective POD #1, Doing well. Denies SOB, CP, N/V. Pain is controlled well. Wishes for OPPT on D/C. Physical Exam Physical Exam: Left knee dressings c/d/i, no drainage, drain in tact. Wound vac canister in place. Toes/ ankle mobile. No calf tenderness. N/V+. A&Ox3. Results & Data Vital Signs (Past 12 Hours) Vital Signs Temp Pulse Resp BP Pulse Ox 05/23/19 07:17 36.5 C 68 16 148/72 H 97 05/23/19 03:42 36.7 C 84 16 143/75 H 96 05/22/19 23:02 37.1 C 78 18 149/77 H 92
[2019-05-23] MEDS: NICOTINE 14 MG/24 HR PATCH TD SCH (08:18)
[2019-05-23] MEDS: ROPINIROLE HCL 0.25 MG TABLET PO SCH ×3 (08:22→21:11)
[2019-05-23] MEDS: DOCUSATE SODIUM 100 MG CAP PO SCH ×2 (08:23→21:08)
[2019-05-23] MEDS: CHOLECALCIFEROL 1,000 UNITS TAB PO SCH (08:23)
[2019-05-23] MEDS: MULTIVITAMIN TAB PO SCH (08:24)
[2019-05-23] MEDS: FLUTICASONE/UMECLIDIN/VILANTER INH SCH (08:24)
[2019-05-23] MEDS: predniSONE 5 MG TAB PO SCH (08:24)
[2019-05-23] MEDS: ASPIRIN 81 MG ECTAB PO SCH ×2 (08:24→21:11)
[2019-05-23] MEDS: DULOXETINE HCL 60 MG CAP PO SCH (08:24)
--- NOTE | 2019-05-23 13:00 | Hospitalist Progress Note ---
Date of Service May 23, 2019 Assessment & Plan (1) Osteoarthritis of left knee: - S/p left total knee on 05/22, POD#1. - Pain control per primary team. - DVT ppx: ASA 81 mg BID. - PT/OT - discharge on 05/24. (2) Anemia: - Hgb decreased to 10.9, likely related to IV fluids and intra op blood loss. - Monitor CBC daily. (3) Rheumatoid arthritis: - Continue Prednisone 5 mg daily; holding Methotrexate (takes med on the weekend) and Leflunomide. - Hold home folic acid supplementation. (4) COPD (chronic obstructive pulmonary disease): - No evidence of acute exacerbation. - Continue home Trelegy-Elipta with albuterol prn. (5) Depression: - Continue home Cymbalta as prescribed. (6) RLS (restless legs syndrome): - Continue Requip 0.5 mg TID. (7) Yeast infection: - Has had a chronic issue with topical yeast infections -- continue topical Econazole prn. (8) Tobacco abuse: - Smokes 1 PPD; encourage tobacco cessation. - Nicotine patch ordered. (9) DVT prophylaxis: - SCDs; ASA BID. Dispo: Will sign off, please call with any questions. Subjective Pt. is doing well today -- knee pain is controlled. Is passing gas, had a BM. Denies chest pain, SOB. Review of Systems Review of Systems: All systems reviewed & are unremarkable except as noted in HPI & below Constitutional: no fever, no chills, no fatigue and no weakness Respiratory: no cough, no dyspnea, no dyspnea on exertion and no wheezing Cardiovascular: no chest pain, no palpitations and no edema Gastrointestinal: no abdominal pain, no nausea, no vomiting, no constipation and no diarrhea/loose stools Genitourinary: no difficulty urinating Musculoskeletal: no back pain and no joint pain Integumentary: no non-healing lesions Physical Exam Physical Exam: General: Resting comfortably HEENT: NC/AT; PERRLA with EOMI; [place] conjunctiva, MMM. No erythema of posterior pharynx Neck: Supple and nontender Cardiac: RRR Lungs: CTA bilaterally Abdomen: Bowel normoactive X 4; Nontender to palpation Extremities: Warm. No edema present. Dressing in place on LLE. Neuro: No focal weakness Skin: No rash Results & Data Vital Signs (Past 12 Hours) Vital Signs Temp Pulse Resp BP Pulse Ox 05/23/19 11:18 36.9 C 94 H 16 129/73 96 05/23/19 07:17 36.5 C 68 16 148/72 H 97 05/23/19 03:42 36.7 C 84 16 143/75 H 96 Laboratory Results 05/23/19 05/23/19 Range/Units 04:56 04:56 WBC 16.27 H (4.8-10.8) K/uL RBC 3.43 L (4.2-5.4) M/uL Hgb 10.9 L (12.0-16.0) g/dL Hct 33.1 L (37-47) % MCV 96.5 (80-100) fL MCH 31.8 (25-34) pg MCHC 32.9 (32-36) g/dL RDW Std Deviation 63.7 H (36.4-46.3) fL RDW Coeff of Ronny 18.2 H (11.5-14.5) % Plt Count 221 (130-400) K/uL MPV 11.4 H (7.4-10.4) fL Absolute Nucleated RBC 0.02 H (0-0) K/uL Nucleated RBC % (auto) 0.1 % Sodium 137 (136-145) mmol/L Potassium 4.3 (3.5-5.1) mmol/L Chloride 107 (98-107) mmol/L Carbon Dioxide 25 (21-32) mmol/L Anion Gap 5.0 (3-11) BUN 14 (7-18) mg/dl Creatinine 0.65 (0.6-1.2) mg/dl Est Cr Clr Drug Dosing 81.2 ml/min Est GFR ( Amer) 108.0 Est GFR (Non-Af Amer) 93.2 BUN/Creatinine Ratio 21.2 H (10-20) Glucose 118 H (70-99) mg/dl Calcium 8.2 L (8.5-10.1) mg/dl PG Care Time/CCT Total # of Minutes Spent Total Time Spent with Patient: Total time spent is greater than 50% in coordination of care (as documented) at patient's floor/unit and/or counseling patient:
[2019-05-23] MEDS: SENNA 8.6 MG TAB PO SCH (21:08)
[2019-05-24] MEDS: OXYCODONE HCL IR 5 MG TAB (IMMEDIATE RELEASE) PO PRN ×2 (03:45→10:17)
[2019-05-24] MEDS: ACETAMINOPHEN 500 MG TAB PO SCH (05:48)
[2019-05-24 06:07] LABS: Hematocrit (blood only) 29.1 % (37-47); Mean Corpuscular Hemoglobin 32.7 pg (25-34); Mean Corpuscular Hgb Conc 34.4 g/dL (32-36); Mean Corpuscular Volume 95.1 fL (80-100); Mean Platelet Volume 10.9 fL (7.4-10.4); Platelet Count 192 K/uL (130-400); RDW Coefficient of Variation 18.2 % (11.5-14.5); Red Blood Count 3.06 M/uL (4.2-5.4); White Blood Count 7.86 K/uL (4.8-10.8)
--- NOTE | 2019-05-24 06:55 | Orthopedic Progress Note ---
Date of Service May 24, 2019 Assessment & Plan (1) Osteoarthritis of left knee: POD #2, Left TKA PT/ Ot DVT proph- ASA D/C planning- Home w OPPT plan for d/c after PT today Subjective POD #2, Doing well. Denies SOB, CP, N/V. Pain is controlled well. Review of Systems Constitutional: no fever and no chills Physical Exam Physical Exam: Vital Signs Temp Pulse Resp BP Pulse Ox 05/24/19 06:43 36.6 C 94 H 18 113/70 94 05/23/19 23:06 36.6 C 72 16 139/77 95 05/23/19 15:29 37.0 C 84 18 146/81 H 96 05/23/19 11:18 36.9 C 94 H 16 129/73 96 05/23/19 07:17 36.5 C 68 16 148/72 H 97 Intake and Output 05/23/19 05/23/19 05/24/19 14:59 22:59 06:59 Intake Total 500 / 800 300 / 800 Output Total 300 / 450 150 / 450 Balance 200 / 350 150 / 350 Intake: Oral 500 / 800 300 / 800 Output: Drain Output 300 / 450 150 / 450 Left Knee Hemo vac #1 300 / 450 150 / 450 Other: # Unmeasured Voi ds 2 Constitutional: WD/WN, vitals as above no acute distress Musculoskeletal: left knee: NVDI, calf SNT, negative goyo sign. DP palpable, able to wiggle toes/ankle movement without difficulty. prevena dressing clean dry and intact. expected post-operative bruising noted. Results & Data Vital Signs (Past 12 Hours) Vital Signs Temp Pulse Resp BP Pulse Ox 05/24/19 06:43 36.6 C 94 H 18 113/70 94 05/23/19 23:06 36.6 C 72 16 139/77 95
[2019-05-24] MEDS: predniSONE 5 MG TAB PO SCH (07:24)
[2019-05-24] MEDS: CHOLECALCIFEROL 1,000 UNITS TAB PO SCH (07:24)
[2019-05-24] MEDS: DULOXETINE HCL 60 MG CAP PO SCH (07:24)
[2019-05-24] MEDS: FLUTICASONE/UMECLIDIN/VILANTER INH SCH (07:24)
[2019-05-24] MEDS: MULTIVITAMIN TAB PO SCH (07:24)
[2019-05-24] MEDS: DOCUSATE SODIUM 100 MG CAP PO SCH (07:24)
[2019-05-24] MEDS: ASPIRIN 81 MG ECTAB PO SCH (07:24)
[2019-05-24] MEDS: ROPINIROLE HCL 0.25 MG TABLET PO SCH (07:25)
[2019-05-24] MEDS: NICOTINE 14 MG/24 HR PATCH TD SCH (07:25)
--- NOTE | 2019-05-26 13:07 | Discharge Summary ---
Date of Service May 26, 2019 Admission HPI Per Admitting Provider This is a 63-year-old female patient of Dr. Faye'levon complaining of chronic left knee pain, longstanding, now progressively getting worse. The patient has failed conservative treatment including intra-articular injections, viscosupplementation, anti-inflammatories, home exercise program and the use of a sleeve. The patient has increased pain with weightbearing activities and her pain does interfere with her activities of daily living. The patient has been diagnosed with end-stage osteoarthritis per clinical and radiographic exams. The patient wished to proceed with a left total knee arthroplasty. Admission Exam Per Admitting Provider PHYSICAL EXAMINATION: GENERAL: Well-developed, well-nourished 63-year-old female in no acute distress. She is alert and oriented x3 and pleasant. HEENT: Normocephalic, atraumatic. Extraocular motions are intact. Pupils are equal and reactive to light. HEART: Regular rate and rhythm, no murmurs. LUNGS: Decreased sounds in the right upper lobe with mild expiratory wheezes. ABDOMEN: Soft and nontender. Bowel sounds present. EXTREMITIES: Left knee reveals a varus deformity with medial joint line tenderness. She has range of motion of 0-130. She has crepitation and pain with range of motion. She has 5/5 strength and she is neurologically and neurovascularly intact in her left lower extremity. Principal Diagnosis Left Knee Djd Discharge Exam Constitutional: WD/WN, vitals as above no acute distress Musculoskeletal: left knee: NVDI, calf SNT, negative goyo sign. DP palpable, able to wiggle toes/ankle movement without difficulty. prevena dressing clean dry and intact. expected post-operative bruising noted. Discharge Data Allergies Allergy/AdvReac Type Severity Reaction Status Date / Time levofloxacin Allergy Unknown TENDONITIS Unverified 05/22/19 06:58 piroxicam Allergy Unknown SWELLING Verified 05/22/19 06:58 AND INCREASED REFLUX atorvastatin [From Lipitor] AdvReac Unknown JOINT,MUSCLE Verified 05/22/19 06:58 PAIN, TENDONITIS etodolac AdvReac Unknown 'made pain Verified 05/22/19 06:58 worse' per pt Consultations 05/16/19 16:06 Consult Hospitalist Routine 05/22/19 12:23 Consult Case Management - Discharge Planning Routine Procedures Performed Operation Date: 05/22/19 08:40 Actual Procedures p Left Total Knee Arthroplasty(Left) - Corey Faye MD Ordered Studies 05/22/19 05:00 US - OR guided needle placemen Routine Hospital Course (1) Osteoarthritis of left knee: Patient was admitted on the above-noted date and had the above-noted surgery performed which she tolerated well. Her first postoperative day, she was doing well. Denies shortness of breath chest pain or nausea or vomiting. Pain was well controlled and she was hoping to do outpatient PT upon discharge. Dressings were clean, dry, and intact. Drain was functioning. Wound VAC was in place. Toes are mobile. Calves are nontender. Neurovascular is intact. She was alert and oriented. She was started on a PT and OT protocol. Continued on DVT prophylaxis and pain management. [facility] physician group hospitalist service was consulted for medical management and continue to follow the patient during her stay.By her second postoperative day, she would continue to do well in progress with her physical therapy. Pain was controlled and she had no complaints. Vital signs remained stable. Parris dressing continued to remain clean and dry. Calves are soft nontender. Neurovascular is intact. Toes are mobile. The rest of her stay was uneventful and it was felt she could be discharged home on 05/24/2019. Total Time Total Time Spent Total Time Spent (In Minutes): 2 Discharge Plan Discharge Items Patient Disposition: Home - Self-Care Reason For Visit: LEFT KNEE OSTEOARTHRITIS Discharge Diagnosis: left total knee replacement Activity: Per Instructions section Lifting: Wait until after follow-up appointment Weightbearing: Left weightbearing Weightbearing Comment: WBAT with walker Non-emergency contact: Surgeon Call non-emergency contact if: you have any medication questions, your temperature is above 101, your wound has increased redness, your wound has increased drainage and your wound pain has increased Follow-up/Referrals: Joe Santos MD [Primary Care Provider] - Diet: Regular Addtl Attending Provider Instructions: ACTIVITY RECOMMENDATIONS: SELF CARE INSTRUCTIONS AFTER TOTAL KNEE REPLACEMENT A. You may need to continue a physical therapy program after discharge from the hospital. There are several options available to you. Your doctor will assist you in selecting the best one for you. 1. An out-patient facility 2 to 3 times a week for therapy or home therapy. 2. Continue working on all exercises taught to you in the hospital. Your goals should be to increase bending of your knee to 90 degrees and beyond and to fully straighten your knee. B. You may progress at your own pace from walking with a walker or crutches to a cane; then to no assistive devices. C. Make walking a part of your daily routine. Be up as much as comfortable with rest periods throughout the day. Rest with leg elevation is very important. Use the ice wrap frequently for the first 3-4 weeks. D. There are no restrictions on activities. You may ride in a car, shop, participate in contracting engineer and all social activities. E. Wear the long elastic stockings (WINNIE hose) 20 hours a day for 2 weeks after surgery. They can be removed several times a day for laundering and for a bath. F. You may shower, no tub baths until cleared by your doctor. SPECIAL CARE INSTRUCTIONS: VERY IMPORTANT TO READ AND REVIEW A. There are a few signs you need to watch for after you are home. Call [facility] if you notice any of the followin. Increased severe knee pain. Some pain is expected especially when you exercise. 2. Increased swelling in your leg or knee; pain or swelling of the calf muscle in either lower leg. 3. Any fluid drainage from the incision. 4. Shortness of breath or chest pain. B. Please call [facility] at if you have any concerns or questions about your operation or recovery. The doctor or his nurse will return your call promptly. C. You must take antibiotics before dental work, bladder, bowel or other surgery. Your doctor will provide you with a permanent care to carry describing this precaution. IMPORTANT: * REMEMBER TO TAKE ASPIRIN, 81 MG, TWICE DAILY FOR 4 WEEKS UNLESS OTHERWISE DIRECTED. THIS IS YOUR BLOOD THINNER. * HIGH RISK PATIENTS MAY BE PRESCRIBED A STRONGER BLOOD THINNER. THIS WILL BE PROVIDED AT DISCHARGE. * CALL IF INCREASED PAIN, REDNESS, DRAINAGE OR FEVER GREATER THAT 101. * WEAR WINNIE HOSE 20 HOURS PER DAY FOR 2 WEEKS. * Prevena- This is a large suction dressing covering your incision. This will help pull any excess drainage from the wound and allow your incision to heal properly. You may shower with this if you can keep the unit outside of the shower. If any bleeding or leakage is noted please call your doctor's office. This will remain on your incision for 7 days and then should be removed. This can be done yourself or by the home nursing staff if applicable. The entire unit is disposable once removed. Once removed, keep incision clean and dry. If redness or drainage is noted, please call your surgeon. IF INCISION IS LEAKING THROUGH DRESSING, CALL THE OFFICE . FOLLOW UP VISIT: If appointment is not already scheduled: Please call [facility] to make a follow-up appointment for 2 weeks after your surgery at . Pending Studies at Discharge: No Stand-Alone Forms: [facility] [place], Opioid Pain Management Medications and DC Order Prescriptions: New aspirin [Ecotrin Low Strength] 81 mg Tablet,Delayed Release (Dr/Ec) 81 mg PO BID 30 Days Qty: 60 RF: 0 acetaminophen [Tylenol Extra Strength] 500 mg Tablet 1,000 mg PO Q8 14 Days Qty: 84 RF: 0 oxycodone 5 mg Tablet 5 - 10 mg PO Q6HWA PRN (Reason: pain) Qty: 30 RF: 0 docusate sodium 100 mg Capsule 100 mg PO BID 10 Days Qty: 20 RF: 0 cefadroxil 500 mg capsule 500 mg PO BID 7 Days Qty: 14 RF: 0 Continued folic acid 1 mg tablet 1 mg PO DAILY RF: 0 cholecalciferol (vitamin D3) 5,000 unit capsule 5,000 units PO DAILY RF: 0 albuterol sulfate [Ventolin HFA] 90 mcg/actuation HFA aerosol inhaler 2 puffs INH Q6H MDD 8 puffs PRN (Reason: shortness of breath) Qty: 18 RF: 5 albuterol sulfate 2.5 mg /3 mL (0.083 %) solution for nebulization 2.5 mg INH Q4H PRN (Reason: shortness of breath or wheezing) Qty: 90 RF: 5 Prolia 60 mg/mL syringe 60 mg SQ Q6MO Qty: 1 RF: 1 ropinirole 0.5 mg tablet 0.5 mg PO TID Qty: 90 RF: 5 Trelegy Ellipta 100-62.5-25 mcg blister with device 1 puffs INH DAILY Qty: 60 RF: 5 cyanocobalamin (vitamin B-12) 250 mcg tablet 250 mcg PO DAILY RF: 0 prednisone 5 mg tablet 5 mg PO QAM RF: 0 leflunomide 20 mg tablet 20 mg PO QAM RF: 0 econazole 1 % cream 1 appln TOP UD PRN (Reason: Rash) RF: 0 duloxetine 60 mg capsule,delayed release(DR/EC) 60 mg PO QAM RF: 0 Discontinued methotrexate sodium 2.5 mg tablet 25 mg PO WK RF: 0 oxycodone-acetaminophen 5-325 mg tablet See Rx Instructions .ROUTE .COMPLEX PRN (Reason: pain) RF: 0 Discharge Orders: Discharge Order (Routine); Ordered 05/24/19 Ordered By: Kurt Diaz/Other Patient Handouts: Surgery Prevent DVT After Admission Data Admit Date/Time: 05/22/19 11:15 Attending Provider: Corey Faye Admit Provider: Corey Faye Primary Care Provider: Joe Santos Other Providers: Kofi Pacheco ; Shaunna Urias ; Deepak Sanders ; Jennifer Wesley ; Ovi Cali ; Kurt Garcia ; Lisa Dow ; Kurt Paz ; Aramis Miller Other Interventions: Discharge Summary Assessment (RN) Last Done: 05/24/19 08:23 DC Date/Time DO NOT enter until pt leaves facility: 05/24/19 10:55
== END 2019-05-24 10:55 | disposition home or self-care (01) | DRG 470 ==
LOC: ASU 06:24 → 3E 11:15
DX: Z79.51 Long term (current) use of inhaled steroids; M50.322 Other cervical disc degeneration at C5-C6 level; J44.9 Chronic obstructive pulmonary disease, unspecified; Z98.890 Other specified postprocedural states; D62 Acute posthemorrhagic anemia; Z88.8 Allergy status to other drugs, medicaments and biological substances; B37.2 Candidiasis of skin and nail; M17.12 Unilateral primary osteoarthritis, left knee; F17.210 Nicotine dependence, cigarettes, uncomplicated; M47.812 Spondylosis without myelopathy or radiculopathy, cervical region; F32.9 Major depressive disorder, single episode, unspecified; M06.9 Rheumatoid arthritis, unspecified; E66.9 Obesity, unspecified; Z79.899 Other long term (current) drug therapy; G25.81 Restless legs syndrome; M50.323 Other cervical disc degeneration at C6-C7 level; Z88.6 Allergy status to analgesic agent; Z88.1 Allergy status to other antibiotic agents; Z68.32 Body mass index [BMI] 32.0-32.9, adult; M43.12 Spondylolisthesis, cervical region; Z79.52 Long term (current) use of systemic steroids

== ENCOUNTER 2020-05-18 06:25 | Inpatient (IN) ==
--- NOTE | 2020-05-05 15:25 | PAT Medication Instructions ---
Medication Instructions Date of Service May 05, 2020 Home Medications Medication Instructions Recorded albuterol sulfate 90 mcg/actuation 2 puffs INH Q6H PRN #18 gm MDD 8 01/24/19 aerosol inhaler puffs albuterol sulfate 2.5 mg INH Q4H PRN #90 ml 03/23/19 denosumab 60 mg/mL subcutaneous 60 mg SQ Q6MO #1 ml 03/23/19 syringe methotrexate sodium 2.5 mg tablet See Rx Instructions PO WEEKLY #1 06/30/19 tab fluticasone fur. 100 mcg-umeclid 1 puffs INH DAILY #60 ea 10/01/19 62.5 mcg-vilant 25 mcg inhalat.powder prednisone 5 mg tablet 5 mg PO QAM #30 tab 12/31/19 econazole 1 % topical cream 1 appln TOP UD PRN #85 gm 01/13/20 duloxetine 60 mg capsule,delayed 60 mg PO QAM #90 cap 01/21/20 release furosemide 20 mg tablet 20 mg PO QAM #30 tab 01/28/20 mupirocin 2 % topical ointment 1 appln TOP BID #15 gm 01/28/20 fluticasone propionate 220 1 puffs INH BID #12 gm 02/25/20 mcg/actuation HFA aerosol inhaler folic acid 1 mg tablet 1 mg PO DAILY #90 tab 04/15/20 leflunomide 20 mg tablet 20 mg PO QAM #90 tab 04/15/20 ropinirole 0.5 mg tablet 0.5 mg PO TID #270 tab 04/15/20 fluconazole 200 mg tablet 200 mg PO DAILY 14 Days #14 tab 04/20/20 oxycodone 5 mg tablet See Rx Instructions PO Q6HWA PRN 04/20/20 #180 tab MDD 6 tabs cholecalciferol (vitamin D3) 125 mcg (5,000 unit) capsule 5,000 units PO QAM albuterol sulfate 90 mcg/actuation aerosol inhaler 2 puffs INH Q6H PRN albuterol sulfate 2.5 mg INH Q4H PRN denosumab 60 mg/mL subcutaneous syringe 60 mg SQ Q6MO cyanocobalamin (vitamin B-12) 250 mcg tablet 250 mcg PO QAM methotrexate sodium 2.5 mg tablet See Rx Instructions PO WEEKLY fluticasone fur. 100 mcg-umeclid 62.5 mcg-vilant 25 mcg inhalat.powder 1 puffs INH DAILY prednisone 5 mg tablet 5 mg PO QAM econazole 1 % topical cream 1 appln TOP UD PRN duloxetine 60 mg capsule,delayed release 60 mg PO QAM furosemide 20 mg tablet 20 mg PO QAM mupirocin 2 % topical ointment 1 appln TOP BID fluticasone propionate 220 mcg/actuation HFA aerosol inhaler 1 puffs INH BID folic acid 1 mg tablet 1 mg PO DAILY leflunomide 20 mg tablet 20 mg PO QAM ropinirole 0.5 mg tablet 0.5 mg PO TID fluconazole 200 mg tablet 200 mg PO DAILY oxycodone 5 mg tablet See Rx Instructions PO Q6HWA PRN Continue as directed fluconazole 200 mg tablet 200 mg PO DAILY ASK your prescriber and surgeon denosumab 60 mg/mL subcutaneous syringe 60 mg SQ Q6MO methotrexate sodium 2.5 mg tablet See Rx Instructions PO WEEKLY leflunomide 20 mg tablet 20 mg PO QAM STOP taking 24 hours before surgery econazole 1 % topical cream 1 appln TOP UD PRN mupirocin 2 % topical ointment 1 appln TOP BID ropinirole 0.5 mg tablet 0.5 mg PO TID DO NOT take the morning of surgery cholecalciferol (vitamin D3) 125 mcg (5,000 unit) capsule 5,000 units PO QAM cyanocobalamin (vitamin B-12) 250 mcg tablet 250 mcg PO QAM furosemide 20 mg tablet 20 mg PO QAM folic acid 1 mg tablet 1 mg PO DAILY Take morning of surgery With a small sip of water, OTHERWISE NOTHING TO EAT OR DRINK AFTER MIDNIGHT: albuterol sulfate 90 mcg/actuation aerosol inhaler 2 puffs INH Q6H PRN (if needed) albuterol sulfate 2.5 mg INH Q4H PRN (if needed) fluticasone fur. 100 mcg-umeclid 62.5 mcg-vilant 25 mcg inhalat.powder 1 puffs INH DAILY prednisone 5 mg tablet 5 mg PO QAM duloxetine 60 mg capsule,delayed release 60 mg PO QAM fluticasone propionate 220 mcg/actuation HFA aerosol inhaler 1 puffs INH BID oxycodone 5 mg tablet See Rx Instructions PO Q6HWA PRN (okay to take up to 4 hours prior to surgery if needed) Take evening before surgery albuterol sulfate 90 mcg/actuation aerosol inhaler 2 puffs INH Q6H PRN (if needed) albuterol sulfate 2.5 mg INH Q4H PRN (if needed) fluticasone propionate 220 mcg/actuation HFA aerosol inhaler 1 puffs INH BID oxycodone 5 mg tablet See Rx Instructions PO Q6HWA PRN (if needed) Other Notes If you have any questions please call us at [phone] or [phone] or [phone] or [phone]
--- NOTE | 2020-05-06 12:51 | Anesthesiology Consultation ---
Date of Service May 06, 2020 Assessment & Plan (1) Encounter for pre-operative examination: - Pulmonary office visit: 04/09/20: " Since her last visit she did have an overnight oximeter done. This was unremarkable. Showed desaturation oxygen below 88% for 32 seconds. She also had a video swallow done. This did not really show any evidence abnormality as well. Patient does have a history of rheumatoid arthritis. At this time she reports that her breathing seems to be doing well. She has not had any worsening of her symptoms. She has not had any significant cough or congestion. No wheeze. No chest heaviness or tightness. She has not had any increased shortness of breath with exertion. No shortness of breath at rest. She denies any other concerns or problems. Overall she feels that her breathing is at her baseline." F/U 3 months recommended. - Per assessment on 05/06: Travel screen negative. No known COVID-19 positive contacts or current COVID-19 related symptoms. Surgeon arranging preop COVID testing (scheduled 05/14 at surgeon's office). Awaiting results. - S/P Left TKA: 05/22/19: SAB x 2 attempts at L3-L4 + PNB at [facility] Chart Review Chart Review: Acceptable Risk for Surgery (pending surgeon-ordered PCP clearance) and Patient seen in Pre Admission Testing Teaching & Discussion Pre-Anesthesia Teaching/Discussion Notes: Instructed NPO after midnight before surgery,except medications with 15 cc of water. Medication instructions provided according to the PAT guidelines. History Surgery Operation Date: 05/19/20 11:05 Proposed Procedures p C5 and C6 Anterior Corpectomy, C5-C6 Cervical Fusion, Spinal Cord Moonitoring - Alex Mcmullen DO Height/Weight Height: 5 ft 1.5 in Weight: 73.2 kg Allergies Allergy/AdvReac Type Severity Reaction Status Date / Time atorvastatin [From Lipitor] Allergy Intermediate joint/muscle Verified 05/06/20 13:02 pain, tendonitis levofloxacin Allergy Intermediate tendonitis Verified 05/06/20 13:02 piroxicam Allergy Mild swelling, Verified 05/06/20 13:02 worsened reflux etodolac AdvReac Intermediate "made pain Verified 05/06/20 13:02 worse" Medications Home Medications Medication Instructions Recorded Confirmed Last Taken cholecalciferol (vitamin D3) 125 5,000 units PO QAM 01/23/19 05/05/20 Unknown mcg (5,000 unit) capsule albuterol sulfate 90 mcg/actuation 2 puffs INH Q6H PRN #18 gm MDD 8 01/24/19 05/05/20 Unknown aerosol inhaler puffs albuterol sulfate 2.5 mg INH Q4H PRN #90 ml 03/23/19 05/05/20 Unknown denosumab 60 mg/mL subcutaneous 60 mg SQ Q6MO #1 ml 03/23/19 05/05/20 12/25/18 syringe cyanocobalamin (vitamin B-12) 250 250 mcg PO QAM 05/02/19 05/05/20 05/21/19 09:00 mcg tablet methotrexate sodium 2.5 mg tablet See Rx Instructions PO WEEKLY #1 06/30/19 05/05/20 Unknown tab fluticasone fur. 100 mcg-umeclid 1 puffs INH DAILY #60 ea 10/01/19 05/05/20 Unknown 62.5 mcg-vilant 25 mcg inhalat.powder prednisone 5 mg tablet 5 mg PO QAM #30 tab 12/31/19 05/05/20 Unknown econazole 1 % topical cream 1 appln TOP UD PRN #85 gm 01/13/20 05/05/20 Unknown duloxetine 60 mg capsule,delayed 60 mg PO QAM #90 cap 01/21/20 05/05/20 Unknown release furosemide 20 mg tablet 20 mg PO QAM #30 tab 01/28/20 05/05/20 Unknown mupirocin 2 % topical ointment 1 appln TOP BID #15 gm 01/28/20 05/05/20 Unknown fluticasone propionate 220 1 puffs INH BID #12 gm 02/25/20 05/05/20 Unknown mcg/actuation HFA aerosol inhaler folic acid 1 mg tablet 1 mg PO DAILY #90 tab 04/15/20 05/05/20 Unknown leflunomide 20 mg tablet 20 mg PO QAM #90 tab 04/15/20 05/05/20 Unknown ropinirole 0.5 mg tablet 0.5 mg PO TID #270 tab 04/15/20 05/05/20 Unknown fluconazole 200 mg tablet 200 mg PO DAILY 14 Days #14 tab 04/20/20 05/05/20 Unknown oxycodone 5 mg tablet See Rx Instructions PO Q6HWA PRN 04/20/20 05/05/20 Unknown #180 tab MDD 6 tabs Past Medical History Medical History COPD (chronic obstructive pulmonary disease) Depression Long-term current use of steroids Osteoarthritis Restless leg syndrome Rheumatoid arthritis on chronic steroids Thyroid nodule under surveillance Yeast infection intermittent, currently well controlled Exercise / Class Metabolic Activity III < 4 Walking/Shop/Light housework Past Family History Family History Mother Family history of diabetes mellitus (DM) Father Family history of diabetes mellitus (DM) Grandmother (Maternal) Family history of diabetes mellitus (DM) Grandmother (Paternal) Family history of diabetes mellitus (DM) Past Surgical History Surgical History H/O neck surgery NO HARDWARE History of arthroscopy of left knee History of colonoscopy History of lumbar fusion X2 History of shoulder surgery RIGHT History of throat surgery BENIGN MASS REMOVED History of tubal ligation S/P total knee arthroplasty Left TKA: 05/22/19: SAB x 2 attempts at L3-L4 + PNB at [facility] Past Anesthesia History No Hx of Anesthesia Complications Daughter: "slow to wake" History of PONV No Hx of PONV and No Hx of Motion Sickness STOP BANG Total 4 Social History Smoking Status: Current every day smoker tobacco type: cigarettes Smoking cigarettes per day: 20 CIG DAILY (tobacco use x 40 years) Do You Dip or Chew Tobacco: No Hx Alcohol Use: Yes Alcohol type: wine alcohol intake frequency: a few times a month substance use type: does not use Review of Systems Patient denies chest pain, shortness of breath, fever, chills, cough, wheezing, palpitations. Physical Exam Vital Signs VITALS BP 136/71 P 87 TEMP 98.2 SP02 94%RA RESP 18 PHYSICAL Mildly decreased cervical extension. Full TMJ range of motion. TMD 3 finger breaths Mallampati Score 1 Dentition: upper front right side "canine" tooth missing/molars missing Lungs: mild inspiratory wheezes upper > lower Cardiac: regular rate and rhythm, no murmurs noted Spine: normal Carotid arteries: negative bruit Extremities: no edema Testing Laboratory Results 05/06/20 13:00 05/06/20 13:00 PT 10.3 Seconds (9.0-12.0) 05/06/20 13:00 INR 1.0 (0.9-1.1) 05/06/20 13:00 APTT 24.5 Seconds (21.0-31.0) 05/06/20 13:00 Urine Color Yellow 05/06/20 Unknown Urine Appearance Clear (Clear) 05/06/20 Unknown Urine pH 7.5 (4.5-7.5) 05/06/20 Unknown Ur Specific [place] 1.010 (1.000-1.030) 05/06/20 Unknown Urine Protein Negative (Negative) 05/06/20 Unknown Urine Glucose (UA) Negative (Negative) 05/06/20 Unknown Urine Ketones Negative (Negative) 05/06/20 Unknown Urine Nitrite Negative (Negative) 05/06/20 Unknown Ur Leukocyte Esterase Negative (Negative) 05/06/20 Unknown Blood Type A Positive 05/06/20 13:00 Antibody Screen NEGATIVE 05/06/20 13:00 Electrocardiogram Date: 05/06/20 NSR at 83bpm. Possible LAE. Low voltage QRS. When compared to 11/02/2016, QRS axis shifted left per hospital librarian review. Chest X-Ray Date: 05/06/20 FINDINGS: The heart is borderline enlarged. There is no failure. There is no focal pulmonary consolidation. There are no pleural effusions. There are mildly prominent cardiophrenic angle fat pads. Postsurgical changes are present within the lumbar spine. IMPRESSION: No active disease in the chest. Echocardiogram Date: 02/24/20 LVEF 68%. Non-dilated cardiac chambers. No significant valvular disease. Cervical Spine Date: 04/29/19 No evidence for cervical spine instability. Severe degenerative disc disease at C5-C6 and C6-C7. Moderate multilevel facet arthrosis. Reversal of the normal cervical lordosis with anterolisthesis of C4 on C5 which is unchanged since radiographs of February 07, 2017.
--- NOTE | 2020-05-06 13:31 | XRay Report ---
XR chest Pre-admission PA/Lat CLINICAL HISTORY: Preoperative chest COMPARISON STUDY: 04/29/2019 FINDINGS: The heart is borderline enlarged. There is no failure. There is no focal pulmonary consolid ation. There are no pleural effusions. There are mildly prominent cardiophrenic angle fat pads. Posts urgical changes are present within the lumbar spine.[ IMPRESSION: No active disease in the chest. ACT 112: Negative or not required by law. Electronically signed by: Georges Forman M.D. 05/06/2020 1:29 PM
[2020-05-06 15:00] LABS: Basophils # (auto) 0.03 K/uL (0-0.2); Basophils % (auto) 0.3 %; Eosinophils # (auto) 0.05 K/uL (0-0.5); Eosinophils % (auto) 0.5 %; Hematocrit (blood only) 39.8 % (37-47); Hemoglobin 12.6 g/dL (12.0-16.0); Immature Granulocytes # (auto) 0.44 K/uL (0.00-0.02); Immature Granulocytes % (auto) 4.4 %; Lymphocytes # (auto) 1.01 K/uL (1.2-3.4); Mean Corpuscular Hgb Conc 31.7 g/dL (32-36); Monocytes # (auto) 0.37 K/uL (0.11-0.59); Monocytes % (auto) 3.7 %; Neutrophils # (auto) 8.19 K/uL (1.4-6.5); Neutrophils % (auto) 81.1 %; Platelet Count 287 K/uL (130-400); RDW Coefficient of Variation 19.1 % (11.5-14.5); RDW Standard Deviation 68.4 fL (36.4-46.3); Red Blood Count 4.06 M/uL (4.2-5.4); White Blood Count 10.09 K/uL (4.8-10.8)
[2020-05-06 15:05] LABS: Appearance Urine Clear (Clear); Bilirubin Urine Negative (Negative); Blood Urine Negative (Negative); Color Urine Yellow; Glucose Urine UA Negative (Negative); Ketones Urine Negative (Negative); Leukocyte Esterase Urine Negative (Negative); Nitrite Urine Negative (Negative); Protein Urine Negative (Negative); Urobilinogen Urine Negative (Negative); pH Urine 7.5 (4.5-7.5)
[2020-05-06 15:09] LABS: Calcium 9.2 mg/dl (8.5-10.1); Creatinine Clr Calc Pharmacy 71.2 ml/min; Est GFR (African American) 101.1; Est GFR (Non-African American) 87.3; Potassium 4.7 mmol/L (3.5-5.1)
[2020-05-06 15:12] LABS: Partial Thromboplastin Ratio 0.9; Partial Thromboplastin Time 24.5 Seconds (21.0-31.0); Prothrombin Time 10.3 Seconds (9.0-12.0)
--- NOTE | 2020-05-07 12:49 | Electrocardiogram Report ---
Test Reason : Blood Pressure : / mmHG Vent. Rate : 083 BPM Atrial Rate : 083 BPM P-R Int : 130 ms QRS Dur : 084 ms QT Int : 382 ms P-R-T Axes : 060 080 064 degrees QTc Int : 448 ms Normal sinus rhythm Possible Left atrial enlargement Low voltage QRS Borderline ECG When compared with ECG of 02-NOV-2016 11:17, QRS axis Shifted left Confirmed by Tylor Johnson ([id number]) on 05/07/2020 12:49:02 PM Referred By: Alex Mcmullen Confirmed By:Tylor Johnson
[~2020-05-18 06:25] MED LIST changes: -CEFAZOLIN 1000MG 1,000 MG/7.5 ML SYR IV SCH; -FAMOTIDINE 20 MG TAB PO SCH; +LR 15ML/HR IV SCH; -LR 500ML BOLUS, THEN 15ML/HR IV SCH; -METOCLOPRAMIDE HCL 10 MG TABLET PO SCH; -ROPIVACAINE 0.5% HCL/PF 150 MG, BUPIVACAINE 0.5% MPF 30 ML, EPINEPHrine 30MG/30ML (OR U... INSTIL SCH; -TRANEXAMIC ACID 1,000 MG **IV Pre-op IV SCH; +ceFAZolin 1000MG 1,000 MG/7.5 ML SYR IV SCH; -dexAMETHasone 4 MG TAB PO SCH
[2020-05-18] MEDS ORDERED: fentaNYL citrate 100 MCG/2 ML VIAL ONE ×2 (06:48→09:09)
[2020-05-18] MEDS ORDERED: PROPOFOL IV EMULSION 10 MG/ML 20 ML VIAL IV ONE (06:48)
[2020-05-18] MEDS ORDERED: ONDANSETRON INJ 2 MG/ML 2 ML VIAL ONE ×2 (06:48→10:05)
[2020-05-18] MEDS ORDERED: LIDOCAINE HCL 2% 2 ML VIAL/AMP(20MG/ML) INFIL ONE (06:48)
[2020-05-18] MEDS ORDERED: ROCURONIUM BROMIDE 10 MG/ML 5 ML VIAL IV ONE ×3 (06:48→11:21)
[2020-05-18] MEDS ORDERED: MIDAZOLAM HCL 1 MG/ML 2ML VIAL ONE (06:48)
[2020-05-18] MEDS ORDERED: BACITRACIN INJ 50,000 UNIT VIAL ONE (07:02)
--- NOTE | 2020-05-18 07:24 | History & Physical Bridge Note ---
Date of Service May 18, 2020 History & Physical Bridge Note I have examined the patient, reviewed the History & Physical and in the interval since the performance of the History & Physical I have noted the following changes of clinical significance: no changes noted
--- NOTE | 2020-05-18 07:25 | History & Physical Report ---
Date of Service May 18, 2020 Assessment & Plan (1) Cervical stenosis of spinal canal: Admission and Anticipated Discharge Date Admission Date: C5 and C6 anterior corpectomy, C5-C6 cervical fusion History of Present Illness Chief Complaint: Neck and arm pain Primary Care Provider: Joe Santos MD This is a 64-year-old female well-known to me the presents with worsening neck and arm symptoms. After failing a course of nonoperative care is here for surgical invention. Allergies Allergy/AdvReac Type Severity Reaction Status Date / Time atorvastatin [From Lipitor] Allergy Intermediate joint/muscle Verified 05/18/20 07:04 pain, tendonitis levofloxacin Allergy Intermediate tendonitis Verified 05/18/20 07:04 piroxicam Allergy Mild swelling, Verified 05/18/20 07:04 worsened reflux etodolac AdvReac Intermediate "made pain Verified 05/18/20 07:04 worse" Home Medications Home Medications Medication Instructions Recorded Confirmed Type cholecalciferol (vitamin D3) 125 5,000 units PO QAM 01/23/19 05/18/20 History mcg (5,000 unit) capsule albuterol sulfate 90 mcg/actuation 2 puffs INH Q6H PRN #18 gm MDD 8 01/24/19 05/18/20 Rx aerosol inhaler puffs albuterol sulfate 2.5 mg INH Q4H PRN #90 ml 03/23/19 05/18/20 Rx denosumab 60 mg/mL subcutaneous 60 mg SQ Q6MO #1 ml 03/23/19 05/18/20 Rx syringe cyanocobalamin (vitamin B-12) 250 250 mcg PO QAM 05/02/19 05/18/20 History mcg tablet methotrexate sodium 2.5 mg tablet See Rx Instructions PO WEEKLY #1 06/30/19 05/18/20 Rx tab fluticasone fur. 100 mcg-umeclid 1 puffs INH DAILY #60 ea 10/01/19 05/18/20 Rx 62.5 mcg-vilant 25 mcg inhalat.powder prednisone 5 mg tablet 5 mg PO QAM #30 tab 12/31/19 05/18/20 Rx econazole 1 % topical cream 1 appln TOP UD PRN #85 gm 01/13/20 05/18/20 Rx duloxetine 60 mg capsule,delayed 60 mg PO QAM #90 cap 01/21/20 05/18/20 Rx release furosemide 20 mg tablet 20 mg PO QAM #30 tab 01/28/20 05/18/20 Rx mupirocin 2 % topical ointment 1 appln TOP BID #15 gm 01/28/20 05/18/20 Rx fluticasone propionate 220 1 puffs INH BID #12 gm 02/25/20 05/18/20 Rx mcg/actuation HFA aerosol inhaler folic acid 1 mg tablet 1 mg PO DAILY #90 tab 04/15/20 05/18/20 Rx leflunomide 20 mg tablet 20 mg PO QAM #90 tab 04/15/20 05/18/20 Rx ropinirole 0.5 mg tablet 0.5 mg PO TID #270 tab 04/15/20 05/18/20 Rx oxycodone 5 mg tablet See Rx Instructions PO Q6HWA PRN 04/20/20 05/18/20 Rx #180 tab MDD 6 tabs fluconazole 200 mg tablet 200 mg PO DAILY 14 Days #14 tab 05/14/20 05/18/20 Rx Past Med/Surg History Medical History COPD (chronic obstructive pulmonary disease) Depression Long-term current use of steroids Osteoarthritis Restless leg syndrome Rheumatoid arthritis on chronic steroids Thyroid nodule under surveillance Yeast infection intermittent, currently well controlled Surgical History H/O neck surgery NO HARDWARE History of arthroscopy of left knee History of colonoscopy History of lumbar fusion X2 History of shoulder surgery RIGHT History of throat surgery BENIGN MASS REMOVED History of tubal ligation S/P total knee arthroplasty Left TKA: 05/22/19: SAB x 2 attempts at L3-L4 + PNB at [facility] Family History Mother Family history of diabetes mellitus (DM) Father Family history of diabetes mellitus (DM) Grandmother (Maternal) Family history of diabetes mellitus (DM) Grandmother (Paternal) Family history of diabetes mellitus (DM) Social History Smoking Status: Current every day smoker Cigarettes Per Day: 20 CIG DAILY (tobacco use x 40 years); Second Hand Exposure: Yes; Do You Dip or Chew Tobacco: No; Tobacco Cessation Education Requested by Patient: No Hx Alcohol Use: Yes Alcohol type: wine Preferred Language: Swazi Communication Ability: Effective Director Of Partnerships Required: No Beliefs That Will Affect Care: None Current Living Situation: Spouse Feels Safe at Home: Yes Safety Concerns: Feels Safe At This Time Assistive Devices: Glasses, Hearing Aid - Right and Walker Physical Exam Physical Exam: Patient is alert and oriented Heart regular in rhythm Lungs clear to auscultation Results & Data ([facility]) Vital Signs (Past 12 Hours) Vital Signs Temp Pulse Resp BP Pulse Ox 05/18/20 07:18 37 C 103 H 20 135/75 95
[2020-05-18] MEDS ORDERED: MEPERIDINE HCL 25 MG/ML CARP/VIAL IV PRN (07:30)
[2020-05-18] MEDS ORDERED: ATROPINE SULFATE 0.1 MG/ML 10ML SYR IV PRN (07:30)
[2020-05-18] MEDS ORDERED: HYDROmorphone INJ 1 MG/ML SYRINGE IV PRN ×2 (07:30→12:23)
[2020-05-18] MEDS ORDERED: ONDANSETRON INJ 2 MG/ML 2 ML VIAL IV PRN ×2 (07:30→12:23)
[2020-05-18] MEDS ORDERED: PHENYLEPHRINE 100MCG/ML 5ML SYR IV PRN (07:30)
[2020-05-18] MEDS ORDERED: LABETALOL HCL IV 5 MG/ML 20ML IV PRN (07:30)
[2020-05-18] MEDS ORDERED: ePHEDrine sulfate 50 MG/ML AMP IV PRN (07:30)
[2020-05-18] MEDS ORDERED: PHENYLEPHRINE HCL 10 MG/ML VIAL ONE (08:17)
[2020-05-18] MEDS ORDERED: DEXAMETHASONE SOD INJ 4 MG/ML VIAL ONE (08:18)
[2020-05-18] MEDS ORDERED: GLYCOPYRROLATE 0.2 MG/ML VIAL ONE ×2 (09:55→11:23)
[2020-05-18] MEDS ORDERED: NEOSTIGMINE METHYLSULFATE 1 MG/ML 10ML VIAL ONE (09:55)
[2020-05-18] MEDS ORDERED: FLOSEAL HEMOSTATIC MATRIX 10ML TOP ONE (10:01)
--- NOTE | 2020-05-18 10:05 | Operative Report ---
Post Operative Report Pre & Post Diagnosis Operation Date: 05/18/20 07:45 Pre-Op Diagnosis: Cervical spinal stenosis with myeloradiculopathy Post-Op Diagnosis: Same I identified the patient and participated in the time-out.: Yes Procedure Operation Date: 05/18/20 07:45 Actual Procedures 1 anterior cervical corpectomy with bilateral foraminotomies C5 and C6. #2 anterior cervical arthrodesis C4-C7. #3 placement of peek cage 31 mm in height C4-C7. #4 placement locally harvested morselized autograft combined with DBM with an interbody cage. #5 application of 5 complete and screws from C4-C7. Surgeon Alex Mcmullen, DO French Tutor Agustina Hill Estimated Blood Loss 10 Findings Consistent with Post-Op Diagnosis Specimens None Indications This is a 64-year-old female presents with above-mentioned diagnosis after failed extensive course of nonoperative care having marked decline in status she is here for the above-mentioned procedure. Description of Procedure Patient was met with identified informed consent obtained. Patient was then taken to the operative suite underwent an patient placed in a supine position Alber table head Buckner training and development head. All bony prominences well-padded eyes inspected to ensure no external pressure placed upon. This point the anterior cervical spine was prepped and draped in normal sterile fashion. A longitudinal incision was placed along the right anterior aspect of the cervical spine. Sharp dissection with assistance of bipolar cautery performed down to and exposing the anterior cervical spine from C4-C7. Self-retaining retractors placed. I placed Whitmer distracting pins in the body of C4 and C7 to distract across the C5 and C6 vertebral bodies. And then performed a complete corpectomy of see 5 and C4 including bilateral foraminotomies at the C4-5 C5-6 and C6-7 levels removed all posterior annular fibers and longitudinal ligament for complete decompression. Endplates then burred to subcortical bleeding bone and a 31 mm peek cage filled with locally harvested morselized autograft and DBM tapped in position. Distracting apparatus was removed and a 5 complete and screws applied with the assistance of fluoroscopy. The incision was then copiously irrigated explored to ensure no damage to surrounding structures remaining bleeding. 10 round ZAKI drain inserted. The incision was then closed with 2 Vicryl in a fashion of 4 Monocryl for final skin closure. Steri-Strip sterile dressings placed. Patient will continue PACU stable condition. Please note spinal cord monitoring was last that the procedure no changes noted. Lastly Agustina Hill was present at the entire surgery involved the patient positioning complex portions of the surgery and final skin closure. I attest to the content of the Intraoperative Record and any orders documented therein. Any exceptions are noted below.
[2020-05-18] MEDS ORDERED: METOPROLOL TARTRATE 1 MG/ML VIAL IV STA (10:26)
[2020-05-18] MEDS ORDERED: ALBUT/IPRATROP 3MG/0.5MG NEB 3 ML VIAL NEB STA (10:26)
[2020-05-18] MEDS ORDERED: METOPROLOL TARTRATE 1 MG/ML VIAL IV ONE (10:27)
[2020-05-18] MEDS ORDERED: SUGAMMADEX SODIUM 200 MG/2 ML VIAL IV ONE (10:34)
--- NOTE | 2020-05-18 11:10 | Fluoroscopy Report ---
FL cervical 2-3V CLINICAL HISTORY: C5 AND C6 CORPECTOMY, C4-C7 FUSION COMPARISON STUDY: Cervical spine radiographs April 29, 2019. FLUOROSCOPY TIME: 17 seconds. FLUOROSCOPIC IMAGES: 2 FINDINGS: Images demonstrate C5 and C6 corpectomy and C4-C7 anterior fusion. Hardware is intact. Surg ical drain is noted. Endotracheal tube is partially imaged. IMPRESSION: Fluoroscopy provided for C5 and C6 corpectomies and C4-C7 anterior fusion. ACT 112: Negative or not required by law. Electronically signed by: Kashif De Jesus M.D. 05/18/2020 11:08 AM
--- NOTE | 2020-05-18 11:14 | Anesthesiology Progress Note ---
Date of Service May 18, 2020 Anesthesia Post Procedure Vital Signs Vital Signs: Temp Pulse Pulse Pulse Resp BP BP 05/18/20 11:05 69 17 05/18/20 10:55 69 19 05/18/20 10:45 71 17 05/18/20 10:39 86 19 05/18/20 10:35 85 22 05/18/20 10:30 110 H 166/103 H 05/18/20 10:25 115 H 25 H 05/18/20 10:19 36.0 C L 111 H 21 05/18/20 07:18 37 C 103 H 20 135/75 BP Pulse Ox 05/18/20 11:05 161/69 H 96 05/18/20 10:55 176/74 H 97 05/18/20 10:45 159/65 H 97 05/18/20 10:39 93 05/18/20 10:35 176/100 H 92 05/18/20 10:30 05/18/20 10:25 166/103 H 94 05/18/20 10:19 169/115 H 100 05/18/20 07:18 95 Pain Intensity Neck: Pain Intensity: 2 Transfer of Care Handoff Completed per policy Notes Mental Status: alert / awake / arousable Patient Amnestic to Procedure: Yes Nausea / Vomiting: adequately controlled Pain: adequately controlled Airway Patency, RR, SpO2: stable & adequate BP & HR: stable & adequate Hydration State: stable & adequate Anesthetic Complications: no major complications apparent and Pt Satisfied with anesthetic care Notes: The patient is a smoker with COPD. Her blood pressure was labile during the procedure. Prior to extubation the patient had four twitches and was given reversal with neostigmine by the BAR POINTER. She was taken to PACU where she was noted to have some wheezing and had bilateral arm weakness. She was able to t alk but her voice was raspy. SpO2 was 92 on face mask oxygen. She was also tachycardic and hypertensive. The patient was given metoprolol for tachycardia, a Duoneb for her wheezing, and sugammadex to reverse any residual paralysis. The patient's breathing improved with the Duoneb and her strength immediately improved with the sugammadex. Dr. Mcmullen evaluated the patient as well. She is now awake and comfortable. She is able to raise her arms over her head. Her neck does not appear to have any swelling. Her systolic blood pressure is slightly elevated but her other vital signs are stable.
[2020-05-18] MEDS ORDERED: ePHEDrine sulfate 50 MG/ML SYR ONE (11:23)
[2020-05-18] MEDS: fentaNYL citrate 100 MCG/2 ML VIAL IV PRN ×2 (11:37→11:44)
[2020-05-18] MEDS ORDERED: traMADol HCL 50 MG TABLET PO PRN (12:23)
[2020-05-18] MEDS ORDERED: RACEPINEPHRINE 2.25% NEBU SOLN 0.5 ML VIAL INH PRN (12:23)
[2020-05-18] MEDS ORDERED: ACETAMINOPHEN 500 MG TAB PO PRN (12:23)
[2020-05-18] MEDS ORDERED: METOCLOPRAMIDE HCL INJ 5 MG/ML 2 ML VIAL IV PRN (12:23)
[2020-05-18] MEDS ORDERED: FAMOTIDINE 20 MG TAB PO PRN (12:23)
[2020-05-18] MEDS ORDERED: MAGNESIUM HYDROXIDE SUSP 30 ML UDC PO PRN (12:23)
[2020-05-18] MEDS ORDERED: ALUMINUM/MAGNESIUM SUSP 30 ML UDC PO PRN (12:23)
[2020-05-18] MEDS ORDERED: NON-FORMULARY MEDICATION (Denosumab [Prolia] 60 MG) SQ SCH (12:23)
[2020-05-18] MEDS ORDERED: NALOXONE HCL 0.4 MG/1 ML VIAL/CARP IV PRN (12:23)
[2020-05-18] MEDS ORDERED: LORazepam 0.5 MG TAB PO PRN (12:23)
[2020-05-18] MEDS ORDERED: SOD PHOSPHATE/SOD BIPHOSPHATE ENEMA 132 ML BTL PR PRN (12:23)
[2020-05-18] MEDS ORDERED: DO NOT ADMINISTER PNEUMOCOCCAL VACCINE PRN (12:23)
[2020-05-18] MEDS ORDERED: PROMETHAZINE HCL 12.5 MG in SODIUM CHLORIDE 0.9% 50 ML IV PRN (12:23)
[2020-05-18] MEDS ORDERED: DEXAMETHASONE SOD PHOSPHATE 8 MG in SYRINGE 0 ML IV PRN (12:23)
[2020-05-18] MEDS ORDERED: DO NOT ADMINISTER FLU VACCINE PRN (12:23)
[2020-05-18] MEDS ORDERED: LORazepam 0.5 MG/1 ML VIAL IV PRN (12:23)
[2020-05-18] MEDS ORDERED: HYDROmorphone INJ 0.5 MG/0.5 ML SYR IV PRN (12:23)
[2020-05-18] MEDS ORDERED: ECONAZOLE NITRATE 1% CRM 15 GM TUBE TOP PRN (12:23)
[2020-05-18] MEDS ORDERED: ALBUTEROL HFA 8 GM INHALER INH PRN (12:23)
[2020-05-18] MEDS ORDERED: ONDANSETRON 4 MG OD TAB PO PRN (12:23)
[2020-05-18] MEDS ORDERED: hydrOXYzine HCl 25 MG TAB PO PRN (12:23)
[2020-05-18] MEDS ORDERED: ACETAMINOPHEN 1,000 MG/100 ML VIAL IV PRN (12:23)
[2020-05-18] MEDS ORDERED: ALBUTEROL 0.083% NEBU SOLN 3 ML VIAL INH PRN (12:23)
[2020-05-18] MEDS ORDERED: diphenhydrAMINE Capsule 25 MG CAP PO PRN (12:23)
[2020-05-18] MEDS: SODIUM CHLORIDE 0.9% 1000ML 1,000 ML IV SCH ×2 (13:16→22:56)
[2020-05-18] MEDS: rOPINIRole HCL 0.25 MG TABLET PO SCH ×2 (15:16→21:10)
[2020-05-18] MEDS: ceFAZolin 2000MG 2,000 MG/15 ML SYR IV SCH (16:55)
[2020-05-18] MEDS ORDERED: Nursing to Pharmacy Communication SCH (17:00)
[2020-05-18] MEDS: oxyCODONE HCL IR 5 MG TAB (IMMEDIATE RELEASE) PO PRN ×2 (17:13→22:57)
[2020-05-18] MEDS ORDERED: FUROSEMIDE 20 MG TAB PO ONE (18:00)
[2020-05-18] MEDS: NICOTINE 21 MG/24 HR TDSY TD SCH (18:05)
[2020-05-18] MEDS: ALBUTEROL HFA 8 GM INHALER INH SCH (19:38)
[2020-05-18] MEDS ORDERED: FLUTICASONE/VILANTEROL 100/25MCG 14 PUFFS/INHALER INH SCH (21:00)
[2020-05-18] MEDS ORDERED: UMECLIDINIUM BROMIDE 62.5MCG/BLISTER 7 PUFFS/INHALER INH SCH (21:00)
[2020-05-18] MEDS ORDERED: FLUTICASONE FUROATE 200MCG 14 PUFFS/INHALER INH SCH (21:00)
[2020-05-18] MEDS ORDERED: DOCUSATE SODIUM/SENNA 50/8.6MG TAB PO SCH (21:00)
[2020-05-18] MEDS: MUPIROCIN 2% OINT 22 GM TUBE TOP SCH (21:10)
[2020-05-18] MEDS: guaiFENesin 600 MG TABCR PO SCH (21:10)
--- NOTE | 2020-05-18 22:48 | Consultation ---
Date of Consultation May 18, 2020 Assessment & Plan (1) Cervical stenosis of spinal canal: s/p cervical corpectomy at C5/C6 with bilateral foraminotomies by Dr Mcmullen today. Defer pain management, steroid taper, and disposition to orthopedics. (2) COPD (chronic obstructive pulmonary disease): Very wheezy on exam today but she feels she is at or near her usual baseline. Will add albuterol MDI 2 puffs q6h scheduled. Add mucinex 1200mg BID. IV decadron for stress dose purposes and cervical swelling should help her COPD as well. Follow for worsening symptoms. Continue usual home inhalers. Wean O2 off as tolerated. (3) Rheumatoid arthritis: Steroid dependent - 5mg/day of prednisone since 1996. Now on stress doses. Holding MTx. Holding denosumab. (4) Chronic steroid use: prednisone 5mg/day for RA (5) Hyperlipidemia: (6) RLS (restless legs syndrome): cont ropinirole (7) Tobacco abuse: rehabilitation counsellor to quit nicoderm patch 21mg/day (8) DVT prophylaxis: chemical means contraindicated SCDs for now Thank you for this consult. Will follow with you. History of Present Illness Requesting Physician: Eduard Mcmullen DO Reason for Consultation: post-op medical management Attending Physician: Alex Mcmullen DO History of Present Illness 64yo female with history of steroid-dependent rheumatoid arthritis, COPD, ongoing tobacco dependence (1PPD since age 18), and restless legs who presented today for elective cervical spine surgery. Specifically she underwent anterior cervical corpectomy with bilateral foraminotomies at C5 and C6 by Dr Mcmullen for severe spinal stenosis that had been causing b/l arm numbness and left hand weakness. I saw the patient post-op on the orthopedic floor. She was resting comfortably. Denied any chest pain, dyspnea, nausea or abdominal pain. She denies any changes from her baseline pulmonary status (she stated "my breathing is fine"). Requested nicoderm patch. Denied any swallowing difficulty since returning from the OR. EMR does show she DID receive IV decadron perioperatively today for cervical swelling as well as stress dose purposes. Allergies Allergy/AdvReac Type Severity Reaction Status Date / Time atorvastatin [From Lipitor] Allergy Intermediate joint/muscle Verified 05/18/20 07:04 pain, tendonitis levofloxacin Allergy Intermediate tendonitis Verified 05/18/20 07:04 piroxicam Allergy Mild swelling, Verified 05/18/20 07:04 worsened reflux etodolac AdvReac Intermediate "made pain Verified 05/18/20 07:04 worse" Home Medications Home Medications Medication Instructions Recorded Confirmed Type cholecalciferol (vitamin D3) 125 5,000 units PO QAM 01/23/19 05/18/20 History mcg (5,000 unit) capsule albuterol sulfate 90 mcg/actuation 2 puffs INH Q6H PRN #18 gm MDD 8 01/24/19 05/18/20 Rx aerosol inhaler puffs albuterol sulfate 2.5 mg INH Q4H PRN #90 ml 03/23/19 05/18/20 Rx denosumab 60 mg/mL subcutaneous 60 mg SQ Q6MO #1 ml 03/23/19 05/18/20 Rx syringe cyanocobalamin (vitamin B-12) 250 250 mcg PO QAM 05/02/19 05/18/20 History mcg tablet methotrexate sodium 2.5 mg tablet See Rx Instructions PO WEEKLY #1 06/30/19 05/18/20 Rx tab fluticasone fur. 100 mcg-umeclid 1 puffs INH DAILY #60 ea 10/01/19 05/18/20 Rx 62.5 mcg-vilant 25 mcg inhalat.powder prednisone 5 mg tablet 5 mg PO QAM #30 tab 12/31/19 05/18/20 Rx econazole 1 % topical cream 1 appln TOP UD PRN #85 gm 01/13/20 05/18/20 Rx duloxetine 60 mg capsule,delayed 60 mg PO QAM #90 cap 01/21/20 05/18/20 Rx release furosemide 20 mg tablet 20 mg PO QAM #30 tab 01/28/20 05/18/20 Rx mupirocin 2 % topical ointment 1 appln TOP BID #15 gm 01/28/20 05/18/20 Rx fluticasone propionate 220 1 puffs INH BID #12 gm 02/25/20 05/18/20 Rx mcg/actuation HFA aerosol inhaler folic acid 1 mg tablet 1 mg PO DAILY #90 tab 04/15/20 05/18/20 Rx leflunomide 20 mg tablet 20 mg PO QAM #90 tab 04/15/20 05/18/20 Rx ropinirole 0.5 mg tablet 0.5 mg PO TID #270 tab 04/15/20 05/18/20 Rx oxycodone 5 mg tablet See Rx Instructions PO Q6HWA PRN 04/20/20 05/18/20 Rx #180 tab MDD 6 tabs fluconazole 200 mg tablet 200 mg PO DAILY 14 Days #14 tab 05/14/20 05/18/20 Rx oxycodone 5 mg PO Q6H PRN #2 tab 05/18/20 Rx tramadol 50 mg PO Q6H PRN #20 tab 05/18/20 Rx Patient History Medical History COPD (chronic obstructive pulmonary disease) Depression Long-term current use of steroids Osteoarthritis Restless leg syndrome Rheumatoid arthritis on chronic steroids Thyroid nodule under surveillance Yeast infection intermittent, currently well controlled Surgical History H/O neck surgery NO HARDWARE History of arthroscopy of left knee History of colonoscopy History of lumbar fusion X2 History of shoulder surgery RIGHT History of throat surgery BENIGN MASS REMOVED History of tubal ligation S/P total knee arthroplasty Left TKA: 05/22/19: SAB x 2 attempts at L3-L4 + PNB at [facility] Family History Mother Family history of diabetes mellitus (DM) Father Family history of diabetes mellitus (DM) Grandmother (Maternal) Family history of diabetes mellitus (DM) Grandmother (Paternal) Family history of diabetes mellitus (DM) Social History Smoking Status: Current every day smoker Cigarettes Per Day: 20 CIG DAILY (tobacco use x 40 years); Second Hand Exposure: Yes; Do You Dip or Chew Tobacco: No; Tobacco Cessation Education Requested by Patient: No Hx Alcohol Use: Yes Alcohol type: wine Preferred Language: Monegasque Communication Ability: Effective Range Technician Required: No Beliefs That Will Affect Care: None Current Living Situation: Spouse Feels Safe at Home: Yes Safety Concerns: Feels Safe At This Time Assistive Devices: None Review of Systems Constitutional: no fever, no chills, no fatigue and no anorexia Eyes: no worsening vision Ear, Nose, Mouth, Throat: no sore throat and no dysphagia Respiratory: + cough, + dyspnea on exertion (at baseline) and + wheezing; no sputum production Cardiovascular: + edema (moderate - in the days leading up to admission ); no chest pain Gastrointestinal: no abdominal pain, no nausea and no vomiting Genitourinary: no difficulty urinating Musculoskeletal: + neck pain Integumentary: no rash Neurologic: + localized weakness (left hand ) and + loss of sensation (arms ) Psychiatric: no depression and no anxiety Endocrine: denies diabetes Physical Exam Constitutional: no acute distress and no altered mental status Eyes: + no PERRL (right pupil is larger than left pupil ) ENMT: external ear and nose normal, oropharynx normal Neck: mild swelling anterior neck noted; dressing in place right neck (blood- soaked); drain in place from anterior neck Respiratory: no respiratory distress Auscultation: + crackles (anterior chest and posterior bases) and + wheezes (mild, end-exp b/l ) Cardiovascular: Rate/Rhythm: regular rate and regular rhythm Heart Sounds: normal S1 and normal S2; no murmur Vessels: posterior tibial pulses present and dorsalis pedis pulses present; no JVD Extremities: + edema (<1+ b/l ) Gastrointestinal (Abdomen): normal bowel sounds, soft, nontender, no hepatosplenomegaly Musculoskeletal: Extremities: + clubbing Skin: no rashes, warm and dry Neurologic: deep tendon reflexes 2+ bilaterally and moves all extremities Psychiatric: A+Ox3, euthymic affect Lymphatic: no cervical lymphadenopathy Results & Data ([facility]) Vital Signs (Past 12 Hours) Vital Signs Temp Pulse Pulse Resp BP Pulse Ox Pulse Ox 05/18/20 21:18 86 17 168/76 H 93 05/18/20 19:38 88 18 98 05/18/20 19:25 36.7 C 79 20 187/83 H 93 05/18/20 18:09 85 18 171/73 H 92 05/18/20 15:33 20 98 05/18/20 15:14 79 14 149/83 H 96 05/18/20 14:13 36.8 C 75 18 164/72 H 95 05/18/20 13:10 77 18 136/69 90 05/18/20 12:44 70 17 97 05/18/20 12:42 71 16 138/76 98 05/18/20 12:23 36.7 C 80 18 163/98 H 97 98 05/18/20 11:55 75 17 167/94 H 95 05/18/20 11:46 68 15 170/68 H 96 05/18/20 11:35 70 20 163/89 H 97 05/18/20 11:25 70 20 142/84 H 97 05/18/20 11:15 36.4 C L 68 17 156/81 H 97 05/18/20 11:05 69 17 161/69 H 96 05/18/20 10:55 69 19 176/74 H 97 05/18/20 10:45 71 17 159/65 H 97 Laboratory Results preop CBC, BMP, u/a, COVID-19 test all normal/negative preop cxr - no acute findings preop EKG - NSR, no ST changes PG Care Time/CCT Total # of Minutes Spent Total Time Spent with Patient: Total time spent is greater than 50% in coordination of care (as documented) at patient's floor/unit and/or counseling patient: Coding Level of Care Code 54866 Subseq Hosp Care Lvl 3 Diagnoses Cervical stenosis of spinal canal M48.02 COPD (chronic obstructive pulmonary disease) J44.9 Rheumatoid arthritis M06.9 Chronic steroid use Hyperlipidemia E78.5 RLS (restless legs syndrome) G25.81 Tobacco abuse Z72.0 DVT prophylaxis Z29.9
[2020-05-19] MEDS: ceFAZolin 2000MG 2,000 MG/15 ML SYR IV SCH (00:17)
[2020-05-19] MEDS ORDERED: COUGH DROP (SUGAR FREE) LOZ 24 LOZ/1 BOX BUCCAL ONE (00:23)
[2020-05-19] MEDS: ALBUTEROL HFA 8 GM INHALER INH SCH ×3 (01:25→11:22)
[2020-05-19 06:26] LABS: Hematocrit (blood only) 38.3 % (37-47); Hemoglobin 12.2 g/dL (12.0-16.0); Mean Corpuscular Hemoglobin 31.5 pg (25-34); Mean Corpuscular Hgb Conc 31.9 g/dL (32-36); Mean Platelet Volume 12.4 fL (7.4-10.4); Platelet Count 260 K/uL (130-400); RDW Coefficient of Variation 18.2 % (11.5-14.5); RDW Standard Deviation 65.7 fL (36.4-46.3); Red Blood Count 3.87 M/uL (4.2-5.4); White Blood Count 14.92 K/uL (4.8-10.8)
[2020-05-19] MEDS: oxyCODONE HCL IR 5 MG TAB (IMMEDIATE RELEASE) PO PRN ×2 (06:39→13:06)
[2020-05-19 07:03] LABS: BUN Creatinine Ratio 13.8 (10-20); Calcium 7.9 mg/dl (8.5-10.1); Creatinine Clr Calc Pharmacy 85.3 ml/min; Est GFR (African American) 110.1; Potassium 3.3 mmol/L (3.5-5.1)
[2020-05-19 07:10] LABS: Basophils # (auto) 0.02 K/uL (0-0.2); Basophils % (auto) 0.1 %; Eosinophils # (auto) 0.05 K/uL (0-0.5); Eosinophils % (auto) 0.3 %; Immature Granulocytes % (auto) 1.3 %; Lymphocytes # (auto) 2.22 K/uL (1.2-3.4); Lymphocytes % (auto) 14.9 %; Monocytes # (auto) 0.99 K/uL (0.11-0.59); Monocytes % (auto) 6.6 %; Neutrophils # (auto) 11.44 K/uL (1.4-6.5); Neutrophils % (auto) 76.8 %
[2020-05-19] MEDS: guaiFENesin 600 MG TABCR PO SCH (07:20)
[2020-05-19] MEDS: rOPINIRole HCL 0.25 MG TABLET PO SCH ×2 (07:21→13:02)
[2020-05-19] MEDS: MUPIROCIN 2% OINT 22 GM TUBE TOP SCH (07:23)
[2020-05-19] MEDS ORDERED: POTASSIUM CHLORIDE CRTAB 20 MEQ TABCR PO STA (07:51)
[2020-05-19] MEDS: NICOTINE 21 MG/24 HR TDSY TD SCH (08:00)
--- NOTE | 2020-05-19 08:45 | Hospitalist Progress Note ---
Date of Service May 19, 2020 Assessment & Plan (1) Cervical stenosis of spinal canal: * POD#1 s/p cervical corpectomy at C5/C6 with bilateral foraminotomies by Dr Mcmullen. EBL 10cc. Pre-op h/h 12.6/39.8 * Pain management/PT/OT per orthopedic team * H/h stable at 12.2/38.3 * Disposition per primary service-- plans for discharge this afternoon (2) COPD (chronic obstructive pulmonary disease): * Feels at baseline. Had gotten albuterol MDI 2 puffs Q6 scheduled and mucinex 1200mg BID. * Got stress dose steroids which also helped to resolve any wheezing on examination today * Continue home inhalers * Currently 94% on RA and passed a two-step walk test prior to discharge (3) Rheumatoid arthritis: * Steroid dependent - 5mg/day of prednisone since 1996. * Held MTx and denosumab * Given stress dose steroids as above and will give brief steroid burst upon discharge of 20 mg daily x2 days, 10 mg daily x2 days, then resume her 5mg/day (4) Chronic steroid use: * prednisone 5mg/day for RA as above (5) Hyperlipidemia: * History of such noted, * Not on any medication and unable to tolerate atorvastatin * However, most recent lipid panel wnl not on medication -- cholesterol 145 in Sep 2019, LDL 74, HDL 46, triglycerides 127 (from 223 prior) (6) RLS (restless legs syndrome): * Continue ropinirole (7) Tobacco abuse: * Encouraged smoking cessation * Continued nicoderm patch 21mg/day and sent at discharge. (8) Hypokalemia: * K 3.3 on AM BMP -- given 20meq PO x 1 -- patient had been on LR and only liquids following surgery (9) DVT prophylaxis: * chemical means contraindicated * SCDs for now Dispo: discharge planned for later this afternoon per primary service Thank you for allowing medicine team to participate in the care of Mrs. Mckeon. Medicine will sign off at this time but will be happy to follow along if she remains inpatient. Admission and Anticipated Discharge Date Admission Date: May 18, 2020 Supervising Physician Co-Signing Physician Notes PA Supervision Note: I did not personally see or examine the patient today, but I verified all maurice points of CODY Leonard's assessment and plan with the following exceptions/additions: None Subjective Patient evaluated this morning. Doing well. Eating/drinking without difficulty this morning but didn't have much last evening and was awaiting a regular tray this morning as she had been on clear liquids. Denies shortness of breath, cough, sputum production, chest pain, fevers, chills, abdominal pain , nausea or vomiting. Passing gas but feels like she needs to have a BM shortly. Was given miralax this morning which typically helps to relieve any issues at home. Discussed effectiveness of nicotine patch with patient and present. Has been told many times about quitting but states she would be agreeable to continue nicotine patches for smoking cessation. He states he had tried several times to get her to call 1800 number for cessation assistance and that medicare has been great with coverage. Plans for discharge this afternoon per surgical service. Questions/concerns addressed at this time. Review of Systems Review of Systems: All systems reviewed & are unremarkable except as noted in HPI & below Physical Exam Constitutional: + obese; no acute distress and no altered mental status Eyes: + no PERRL (right pupil is larger than left pupil ) ENMT: Mouth: + dental caries; no TMJ abnormality Mallampati Class: II cervical collar in place Neck: normal visual inspection Respiratory: normal respiratory effort and able to speak in complete sentences; no respiratory distress Auscultation: lungs clear to auscultation bilaterally and + diminished lung sounds; no crackles and no wheezes no stridor Cardiovascular: Rate/Rhythm: regular rate and regular rhythm Heart Sounds: normal S1 and normal S2; no murmur Vessels: posterior tibial pulses present and dorsalis pedis pulses present; no JVD Extremities: + edema (<1+ b/l ) Gastrointestinal (Abdomen): normal bowel sounds, soft, nontender, no hepatosplenomegaly Musculoskeletal: Spine: + limited cervical ROM (slightly limited) and + pain with cervical ROM Extremities: + clubbing Skin: no rashes, warm and dry Neurologic: deep tendon reflexes 2+ bilaterally and moves all extremities Psychiatric: A+Ox3, euthymic affect Orientation: alert and oriented x 3 Lymphatic: no cervical lymphadenopathy Results & Data Results & Data ([facility]) Vital Signs (Past 12 Hours) Vital Signs Temp Pulse Resp BP Pulse Ox 05/19/20 07:56 36.7 C 86 18 147/74 H 95 05/19/20 07:28 73 18 93 05/19/20 06:35 37.0 C 84 20 153/75 H 98 05/19/20 04:33 36.7 C 81 20 172/82 H 92 05/19/20 03:26 82 18 96 05/19/20 02:20 36.8 C 81 21 164/76 H 98 05/19/20 01:25 95 H 18 91 05/19/20 00:20 36.5 C 82 19 175/90 H 94 05/18/20 23:21 87 20 94 05/18/20 21:18 86 17 168/76 H 93 Laboratory Results 05/19/20 05/19/20 05/19/20 Range/Units 05:26 05:26 05:26 WBC 14.92 H (4.8-10.8) K/uL RBC 3.87 L (4.2-5.4) M/uL Hgb 12.2 (12.0-16.0) g/dL Hct 38.3 (37-47) % MCV 99.0 (80-100) fL MCH 31.5 (25-34) pg MCHC 31.9 L (32-36) g/dL RDW Std Deviation 65.7 H (36.4-46.3) fL RDW Coeff of Ronny 18.2 H (11.5-14.5) % Plt Count 260 (130-400) K/uL MPV 12.4 H (7.4-10.4) fL Immature Gran % (Auto) 1.3 % Neut % (Auto) 76.8 % Lymph % (Auto) 14.9 % [place] % (Auto) 6.6 % Eos % (Auto) 0.3 % Baso % (Auto) 0.1 % Neut # (Auto) 11.44 H (1.4-6.5) K/uL Lymph # (Auto) 2.22 (1.2-3.4) K/uL [place] # (Auto) 0.99 H (0.11-0.59) K/uL Eos # (Auto) 0.05 (0-0.5) K/uL Baso # (Auto) 0.02 (0-0.2) K/uL Immature Gran # (Auto) 0.20 H (0.00-0.02) K/uL Sodium 139 (136-145) mmol/L Potassium 3.3 L (3.5-5.1) mmol/L Chloride 106 (98-107) mmol/L Carbon Dioxide 28 (21-32) mmol/L Anion Gap 5.0 (3-11) BUN 8 (7-18) mg/dl Creatinine 0.60 (0.6-1.2) mg/dl Est Cr Clr Drug Dosing 85.3 ml/min Est GFR ( Amer) 110.1 Est GFR (Non-Af Amer) 95.0 BUN/Creatinine Ratio 13.8 (10-20) Glucose 98 (70-99) mg/dl Calcium 7.9 L (8.5-10.1) mg/dl Magnesium 2.2 (1.8-2.4) mg/dl PG Care Time/CCT Total # of Minutes Spent Total Time Spent with Patient: Total time spent is greater than 50% in coordination of care (as documented) at patient's floor/unit and/or counseling patient: Coding Level of Care Code 79365 Subseq Hosp Care Lvl 2 Diagnoses Cervical stenosis of spinal canal M48.02 COPD (chronic obstructive pulmonary disease) J44.9 Rheumatoid arthritis M06.9 Chronic steroid use Hyperlipidemia E78.5 RLS (restless legs syndrome) G25.81 Tobacco abuse Z72.0 Hypokalemia E87.6 DVT prophylaxis Z29.9
[2020-05-19] MEDS ORDERED: predniSONE 5 MG TAB PO SCH (09:00)
[2020-05-19] MEDS ORDERED: DULoxetine HCL 60 MG CAP PO SCH (09:00)
[2020-05-19] MEDS ORDERED: DEXAMETHASONE SOD PHOSPHATE 6 MG in SYRINGE 0 ML IV SCH (09:00)
[2020-05-19] MEDS ORDERED: FLUTICASONE FUROATE 200MCG 14 PUFFS/INHALER INH SCH (09:00)
[2020-05-19] MEDS ORDERED: CHOLECALCIFEROL 1,000 UNITS 25 MCG TAB PO SCH (09:00)
[2020-05-19] MEDS ORDERED: FOLIC ACID 1 MG TAB PO SCH (09:00)
[2020-05-19] MEDS ORDERED: CYANOCOBALAMIN 500 MCG TABLET (VITAMIN B-12) PO SCH (09:00)
[2020-05-19] MEDS ORDERED: FUROSEMIDE 20 MG TAB PO SCH (09:00)
[2020-05-19] MEDS ORDERED: UMECLIDINIUM BROMIDE 62.5MCG/BLISTER 7 PUFFS/INHALER INH SCH (09:00)
[2020-05-19] MEDS ORDERED: FLUTICASONE/VILANTEROL 100/25MCG 14 PUFFS/INHALER INH SCH (09:00)
[2020-05-19] MEDS ORDERED: NON-FORMULARY MEDICATION (Fluticasone-Umeclidin-Vilanter [Trelegy Ellipta] 1 PUFFS) INH SCH (09:00)
[2020-05-19] MEDS ORDERED: POLYETHYLENE (MIRALAX) 17 GM PACK PO SCH (10:06)
--- NOTE | 2020-05-19 11:35 | Discharge Summary ---
Date of Service May 19, 2020 Admission HPI Per Admitting Provider This is a 64-year-old female well-known to me the presents with worsening neck and arm symptoms. After failing a course of nonoperative care is here for surgical invention. Principal Diagnosis Cervical spinal stenosis with myeloradiculopathy Discharge Data Allergies Allergy/AdvReac Type Severity Reaction Status Date / Time atorvastatin [From Lipitor] Allergy Intermediate joint/muscle Verified 05/18/20 07:04 pain, tendonitis levofloxacin Allergy Intermediate tendonitis Verified 05/18/20 07:04 piroxicam Allergy Mild swelling, Verified 05/18/20 07:04 worsened reflux etodolac AdvReac Intermediate "made pain Verified 05/18/20 07:04 worse" Consultations 05/18/20 13:06 Consult Hospitalist Routine Procedures Performed Operation Date: 05/18/20 07:45 Actual Procedures p C5 and C6 Anterior Corpectomy, C4-C7 Cervical Fusion, with Spinal Cord Moonitoring - Alex Mcmullen DO Ordered Studies 05/18/20 FL cervical 2-3V Routine FL fluoroscopy <1hr Routine Hospital Course (1) Cervical stenosis of spinal canal: Patient underwent anterior cervical corpectomy and fusion 12 as well as the orthopedic for postop labor postop day 1 she was swallowing well no hoarseness arm symptoms markedly improved. Swallowing well. Strength improved. Subsequent discharge home. Discharge orders instructions from the chart for further review. Total Time Total Time Spent Total Time Spent (In Minutes): 20 minutes Discharge Plan Discharge Items Patient Disposition: Home - Self-Care Reason For Visit: Spinal Stenosis, Cevical Region Discharge Diagnosis: Cervical spinal stenosis with myeloradiculopathy Activity: As commented below Non-emergency contact: Primary Care Provider Call non-emergency contact if: you have any medication questions Follow-up/Referrals: Joe Santos MD [Primary Care Provider] - Diet: Regular Addtl Attending Provider Instructions: ACTIVITY RECOMMENDATIONS: SELF CARE INSTRUCTIONS AFTER CERVICAL FUSIONS 1. No smoking. Smoking drastically decreases the chance of a solid fusion. 2. No bending, lifting more than 5 pounds, or twisting (roll like a log when turning in bed). 3. You may shower 3 days after surgery. Thoroughly dry wound. Do not soak in the tub. 4. Cervical collar: Must be worn at all times including sleeping. You may remove the brace only to bath, eat and if you are sitting in a recliner. 5. Please walk as much as you can for exercise. Gradually increase the distance that you walk as your endurance increases. SPECIAL CARE INSTRUCTIONS: VERY IMPORTANT TO READ AND REVIEW A. Do not take any anti-inflammatory medications (i.e. Indocin, Advil, Aspirin, Naprosyn, Aleve, Motrin, etc.) as these may inhibit the chance of a solid fusion. Tylenol is okay to take. B. Your surgical incision has been closed with a cosmetic suture under the skin that will dissolve in about 6 weeks. In 14 days, you can use a pair of clean scissors and cut the suture that is left outside of the skin at the ends of your incision. C. Complications are uncommon, but please contact us if you have any signs or symptoms of: 1. wound infection (fever higher than 102.5 degrees F, redness, separation of wound, drainage, or increasing pain from the incision) 2. blood clots in legs (pain, swelling, redness and warmth in legs) 3. urinary tract infection (fever higher than 102.5 degrees, burning upon urination or increased frequency of urination) 4. nerve problems (inability to walk on your toes or heels, numbness, loss of bowel or bladder control) 5. any other symptoms that concern you. D. Please call the office at if you have any concerns or questions about your operation or recovery. MANAGING PAIN AFTER SPINAL SURGERY 1. Narcotic medication is intended for short-term use and will be provided for surgical pain. Surgical pain usually lasts for a period of 4-6 weeks. Narcotic medication includes Percocet, Vicodin, Darvocet, Tylenol #3 or Lortab. 2. Longer-term pain is more appropriately treated with non-narcotic medication such as Tylenol ES. 3. Muscle spasm is not appropriately treated with narcotics. Muscle relaxers s uch as Soma, Flexeril or Skelaxin can be used along with Tylenol ES. 4. Remember that we all live with some "aches and pains". This is not unusual or uncommon after an injury or as we get older. 5. We will provide appropriate medication within the normal guidelines of their prescribed use. We will also be very cautious and aware of potential abuse and extended duration of patients' medication needs. 6. Please allow 2-3 days to process refills. Prescriptions will not be mailed but must be picked up at the office. FOLLOW UP VISIT: Keep your scheduled follow-up appointment. Any questions, please call the office at . Pending Studies at Discharge: No Stand-Alone Forms: My [facility], Smoking Cessation Medications and DC Order Prescriptions: New tramadol 50 mg tablet 50 mg PO Q6H PRN (Reason: pain, moderate) Qty: 20 RF: 0 oxycodone 5 mg tablet 5 mg PO Q6H PRN (Reason: pain, severe) Qty: 2 RF: 0 Continued Trelegy Ellipta 100-62.5-25 mcg blister with device 1 puffs INH DAILY Qty: 60 RF: 5 prednisone 5 mg tablet 5 mg PO QAM Qty: 30 RF: 5 econazole 1 % cream 1 appln TOP UD PRN (Reason: Rash) Qty: 85 RF: 1 duloxetine 60 mg capsule,delayed release(DR/EC) 60 mg PO QAM Qty: 90 RF: 1 folic acid 1 mg tablet 1 mg PO DAILY Qty: 90 RF: 3 leflunomide 20 mg tablet 20 mg PO QAM Qty: 90 RF: 1 ropinirole 0.5 mg tablet 0.5 mg PO TID Qty: 270 RF: 3 oxycodone 5 mg tablet See Rx Instructions PO Q6HWA MDD 6 tabs PRN (Reason: pain) Qty: 180 RF: 0 cholecalciferol (vitamin D3) 5,000 unit capsule 5,000 units PO QAM RF: 0 albuterol sulfate [Ventolin HFA] 90 mcg/actuation HFA aerosol inhaler 2 puffs INH Q6H MDD 8 puffs PRN (Reason: shortness of breath) Qty: 18 RF: 5 furosemide 20 mg tablet 20 mg PO QAM Qty: 30 RF: 5 mupirocin 2 % ointment 1 appln TOP BID Qty: 15 RF: 0 fluconazole 200 mg tablet 200 mg PO DAILY 14 Days Qty: 14 RF: 1 Flovent HFA 220 mcg/actuation HFA aerosol inhaler 1 puffs INH BID Qty: 12 RF: 11 albuterol sulfate 2.5 mg /3 mL (0.083 %) solution for nebulization 2.5 mg INH Q4H PRN (Reason: shortness of breath or wheezing) Qty: 90 RF: 5 Prolia 60 mg/mL syringe 60 mg SQ Q6MO Qty: 1 RF: 1 cyanocobalamin (vitamin B-12) 250 mcg tablet 250 mcg PO QAM RF: 0 Discontinued methotrexate sodium 2.5 mg tablet See Rx Instructions PO WEEKLY Qty: 1 RF: 2 Discharge Orders: Discharge Order (Routine); Ordered 05/19/20 Ordered By: Alex Mcmullen Admission Data Admit Date/Time: 05/18/20 10:17 Attending Provider: Alex Mcmullen Admit Provider: Alex Mcmullen Primary Care Provider: Joe Santos Other Providers: Delma Smith
[2020-05-20] MEDS ORDERED: bisacodyL 10 MG SUPP PR PRN (10:06)
== END 2020-05-19 18:21 | disposition home or self-care (01) | DRG 472 ==
LOC: ASU 06:25 → 3E 10:17